=== PATIENT | male | born 1955 | race Caucasian/White ===

== ENCOUNTER 2017-08-28 18:39 | Inpatient (IN) | payer OTHER ==
[2017-08-28] MEDS ORDERED: NS 0.9% 1000 ML* 1,000 ML IV ONE (20:29)
[2017-08-28] MEDS ORDERED: Albuterol/Ipratropium NEB.SOL* Albuterol 2.5 MG/Ipratropium 0.5 MG 3 ML INH ONE (20:42)
[2017-08-28 21:02] LABS: Hematocrit 40 % (42-52); Hemoglobin 13.2 g/dl (14.0-18.0); Mean Corpuscular HGB Conc 33 g/dl (31-36); Mean Corpuscular Hemoglobin 30 pg (27-31); Mean Corpuscular Volume 90 fL (80-94); Mean Platelet Volume 7.7 um3 (7.4-10.4); Platelet Count 205 10^3/ul (150-450); Red Blood Count 4.43 10^6/ul (4.0-5.4); Red Cell Distribution Width 18 % (10.5-15); White Blood Count 10.3 10^3/ul (3.5-10.8)
[2017-08-28 21:11] LABS: INR 0.89 (0.77-1.02)
[2017-08-28 21:19] LABS: EGFR Non-African American 13.3 (>60)
[2017-08-28 21:26] LABS: ABS Basophils 0.1 10^3/ul (0-0.2); ABS Eosinophils 0.2 10^3/ul (0-0.6); ABS Lymphocytes 1.7 10^3/ul (1.0-4.8); ABS Monocytes 2.6 10^3/ul (0-0.8); ABS Neutrophils 5.7 10^3/ul (1.5-7.7); ABS Nucleated RBC 0 10^3/ul; Eosinophil % 1.5 % (0-6); Lymphocyte % 16.7 % (25-47); Nucleated Red Blood Cells % 0.1
--- NOTE | 2017-08-28 21:32 | RAD ---
Indication: Fever, generalized weakness. Comparison: No relevant prior exams available on the [facility] [place] PACS for comparison. Technique: Semiupright AP and lateral chest radiographs. Report: Large body habitus limits image quality. No pulmonary infiltrate, focal pulmonary lesion, pleural effusion, or pneumothorax evident. Upper normal heart size. Unremarkable central pulmonary vasculature and mediastinal contours. Negative for free air beneath the diaphragm. Anterior cervical fusion hardware. IMPRESSION: No evidence for pneumonia. No evidence for acute intrathoracic disease.
[2017-08-28] MEDS ORDERED: cefTRIAXone(*) 1 GM in NS 0.9% 50 ML* 50 ML IVPB ONE (22:16)
[2017-08-28] MEDS ORDERED: HYDROmorphone INJ* 2 MG/ML CARPUJECT SYRINGE IV SLOW PU ONE (22:16)
[2017-08-28] MEDS ORDERED: Acetaminophen TAB* 325 MG PO PRN (23:14)
[2017-08-28] MEDS ORDERED: methylPREDNISolone 125 MG* 2 ML VIAL IV ONE (23:14)
[2017-08-28] MEDS ORDERED: Dextrose 50% Syringe 50 ML* 25 GM/50 ML SYRINGE IV PUSH PRN (23:14)
[2017-08-29] MEDS ORDERED: Azithromycin IV* 500 MG ADVAN VIAL/BAG IVPB ONE (00:05)
[2017-08-29] MEDS: Azithromycin IV(*) 500 MG in NS 0.9% 250 ML* 250 ML IVPB SCH (00:18)
[2017-08-29] MEDS: Albuterol 2.5 MG/3 ML NEB.SOL* (0.083%) INH PRN (00:18)
[2017-08-29] MEDS: NS 0.9% 1000 ML* 1,000 ML IV SCH ×2 (01:11→11:26)
[2017-08-29] MEDS: Morphine VIAL* 4 MG/ML VIAL (1 ml vial) IV PRN ×2 (01:31→20:04)
[2017-08-29 01:56] LABS: Uric Acid 11.1 mg/dL (4.4-7.6)
[2017-08-29] MEDS ORDERED: NS 0.9% 500 ML* 500 ML IV ONE (01:56)
[2017-08-29] MEDS: Albuterol/Ipratropium NEB.SOL* Albuterol 2.5 MG/Ipratropium 0.5 MG 3 ML INH SCH ×6 (03:27→23:31)
--- NOTE | 2017-08-29 04:42 | HP ---
CC: Dr. Hicks; Dr. Antoine; Dr. Gupta * HISTORY AND PHYSICAL: DATE OF ADMISSION: 08/28/17 PRIMARY CARE PROVIDER: Dr. Hicks from [place]. ATTENDING PHYSICIAN WHILE IN THE HOSPITAL: Jolene Hardwick MD* (report being dictated by Greg Ojeda NP) CONSULTING NEUROLOGIST: Dr. Gupta. CONSULTING MEMORIAL DESIGNER: Dr. Antoine. CHIEF COMPLAINT: 1. Generalized pain. 2. Weakness to the lower extremities. HISTORY OF PRESENT ILLNESS: Mr. Lux is a 61-year-old male patient with multiple medical problems. He has a history of diabetes, history of hypertension, hyperlipidemia, hypothyroidism, COPD, history of giant cell arteritis, history of frontal lobe dementia, history of cervical degenerative joint disease, MAGNO, he has GERD, neuropathy, fibromyalgia, PVD, and history of CHF. He is coming into the ED today. He has had several recurrent episodes of having discomfort dating for almost a year now where they get worse and better having pain in the shoulders in the lower extremities. He is just aching all over, he becomes flushed. He has had recurrent episodes. He has been seen mostly at the [facility]. He was actually just at the [facility] and released on 08/26/17. He was there for a total of 3 days. He since being discharged though he has noted that the pain was getting worse. He has just aching all over particularly both his elbows, both his lower extremities. He has noted he was having swelling all over. He was noted to have swelling previously over at the [facility] when he was there from 08/24/17 to 08/26/17. They actually diuresed him aggressively. They sent him out on Bumex 2 mg b.i.d. He states that despite the increased diuretics, the swelling was not getting any better. He is having worsening pain. He states that he has not had any fevers with the exception of here he has been having a cough now, he is noted to be wheezing. He denied any abdominal discomfort and no nausea, vomiting , diarrhea, or chest pain. He denies any orthopnea. The family was concerned because of the pain was unbearable, again particularly all over. He does also admit to the pain worse first thing in the morning. He says first in the morning, he does feel kind of rigid. At times, he describes his gait was a shuffling gait. He has also been having tremors as well. He says that no one particularly joint hurts him. He says all of his joints are hurting right now. He feels stiff. He came into the ED today. It was ultimately noted that he had acute renal failure. Because of this worsening discomfort, pain of unclear etiology, we were asked to evaluate in for admission. PAST MEDICAL HISTORY: Significant for: 1. Diabetes. 2. Hypertension. 3. Hyperlipidemia. 4. Hypothyroidism. 5. COPD. 6. Giant cell arteritis. 7. Frontal lobe dementia. 8. Cervical degenerative disk disease. 9. MAGNO. 10. GERD. 11. Neuropathy. 12. Fibromyalgia. 13. PVD. 14. CHF. PAST SURGICAL HISTORY: 1. He has had cervical and lumbar spinal fusions. 2. He has had right lower extremity stent. 3. Appendectomy. 4. Carpal tunnel. 5. Eustachian tubes. 6. Cholecystectomy. HOME MEDICATIONS: According to the list that he provided include: 1. Insulin regular 2 units subcu a.c. 2. Lantus 20 units subcu at bedtime. 3. Depakote 500 mg p.o. at bedtime. 4. Actemra 162 mg subcu every other week. 5. He is also on melatonin 3 mg at bedtime. 6. Magnesium oxide 400 mg p.o. b.i.d. 7. Seroquel 25 mg at bedtime. 8. Lopressor 25 mg p.o. b.i.d. 9. Aspirin 81 mg a day. 10. Ventolin 2 puffs inhaled every 6 hours as needed. 11. Potassium 30 mEq p.o. b.i.d. 12. Nitro 0.4 mg sublingual q.5 minutes p.r.n. chest pain as needed. 13. Remeron 7.5 mg p.o. at bedtime. 14. Synthroid 25 mcg p.o. daily. 15. Imdur 60 mg p.o. a day. 16. Gabapentin 300 mg p.o. t.i.d. 17. Cardizem CD 240 mg p.o. daily. 18. Lisinopril 20 mg daily. 19. Voltaren gel 1 application topically 4 times a day. 20. Bumex 2 mg p.o. b.i.d. 21. Tylenol 650 mg every 6 hours as needed. ALLERGIES TO MEDICATIONS: Include PENICILLIN. FAMILY HISTORY: His mother had a history of cancer. Father had a history of [place] , but he did have a brother with Leesa Gehrig's disease. SOCIAL HISTORY: He is still smoking half a pack a day. He does not drink alcohol. Surrogate decision maker is his . REVIEW OF SYSTEMS: There is no documented fever here. He denied any significant weight change. There is no double vision. He denies having any ear discharge. There is no rhinorrhea. No sore throat. No thyroid enlargement. He does admit to having the cough. He denies having any shortness of breath. He denied any abdominal pain. There was no nausea, no vomiting. There is no dysuria, no frequency. There was no seizure, no loss of consciousness. No pruritus and no skin ulcerations. Review of 14 systems completed, all others negative. PHYSICAL EXAMINATION GENERAL: At this time, Mr. Lux is a 61-year-old male patient. He is chronically ill appearing. He is sitting in the ED stretcher. He appears to be in mild amount of respiratory distress. VITAL SIGNS: Blood pressure 133/91 with a pulse of 97, respirations of 16, his O2 sat 95%, it was on 2 L. When he came in, he was hypoxic at 89%, it dip down to 77% when he took his oxygen off. HEENT: Head is atraumatic, normocephalic. Eyes: EOMs are intact. Sclerae are anicteric and not pale. Throat: Oral mucosa appears to be moist. No oropharyngeal erythema. NECK: Supple. LUNGS: He had wheezing bilaterally throughout. He had equal diaphragmatic expansion. HEART: Sounds S1, S2. Regular rate and rhythm. No murmurs, rubs, or gallops. ABDOMEN: Soft, flat, it was distended. Bowel sounds were present. EXTREMITIES: Pulses were 2+ throughout. He can move his extremities, but any type of movement causes significant amount of pain, which limited his range of motion. He does have +2 pitting edema on the lower extremities in the pedal area. NEUROLOGICAL: He is awake, he is alert, he is oriented to place and self, confused at times. Supervisor Phosphoric Acid were equal. Tongue is midline. He had no gross obvious focal deficits. SKIN: Intact. He did appear to be flushed. DIAGNOSTIC STUDIES/LAB DATA: His labs today revealing a WBC of 10.3, RBC of 4.43, hemoglobin of 13.2, hematocrit of 40, and the platelet count of 205. He had an INR of 0.89, PTT at 27.5. His sodium was 140, potassium of 4.6, chloride of 99, bicarb 30, BUN was 22, his creatinine was 4.56, previous creatinine was 1.4 according to the discharge paperwork. Glucose 99, lactate 1.2, calcium 9.1, total bili 0.2, AST 36, ALT 40, CK is pending. Troponin 0.00. CRP was 8.75, BNP is 31, albumin of 4.1. Valproic acid was negative. He did have a chest x-ray obtained today, which showed no evidence of pneumonia , no evidence for acute intrathoracic disease. He did have an EKG obtained today, no previous for comparison unfortunately, but it does show a normal sinus rhythm with no ST elevations or T-wave inversions. He did have flattened T-waves in lead III and aVF. Old medical records were reviewed. ASSESSMENT AND PLAN: Mr. Lux is a 61-year-old male patient with a complex medical history coming into the ER today with complaint of aching all over, not feeling well, low grade fever noted. In addition to this, found to be in acute renal failure. He will be admitted under inpatient status for: 1. Chronic obstructive pulmonary disease exacerbation. I am concerned he does have a little bit of work of breathing when I examined him. I had my attending examine him and we felt that he would benefit from high flow O2, so I in place him in ICU, on Vapotherm with aggressive steroid therapy, nebs, Dulera, and antibiotics. I am going to put him on azithromycin and Rocephin for now. Should he spike fever or decompensate further, we could consider giving him vanco and Zosyn. There is no evidence of pneumonia on x-ray. It does appear to be exacerbation of chronic obstructive pulmonary disease, so I do not think he needs the broad-spectrum antibiotics at this point. 2. Arthralgias, again etiology of this is unclear. He had a CT imaging of the cervical spine just done at the [facility]. He also had MRI 6 months ago of the thoracic, lumbar, and cervical spine. The CT spine had no acute pathology. He did have arthritis noted. I will refer you to the report in the chart for the details. He also had a CTA of the head and neck due to the bilateral lower extremity weakness and Neurology evaluated. I do not have the Neurology consult. We will try to get this when he was just at the [facility] a few days ago. I am concerned that he might have connective tissue disorder, possible autoimmune disorder, but it is unclear. I do think we need to get in touch with Rheumatology and we will touch base them tomorrow for further workup. I did send off the ESR. I also sent off an AMINATA double stranded. AMINATA also sent off for rheumatoid factor for the time being and uric acid level as well. We also did check a lactic acid. We will continue him on steroids, again it is unclear etiology. 3. Anasarca, again may have been contributing autoimmune disorder causing this or also possibly nephrotic syndrome. I am waiting on a urine to help us with this. I am not going to diurese him given the acute renal failure. 4. Acute renal failure, again etiology is unclear, but certainly he was on lisinopril. He was on Bumex. He was taking Voltaren gel and also could be other syndromes going on, we bladder scanned him, he was 177, he did urinate this morning and I am going to go ahead and again get a FENa, check a urine protein, and check his mag and phos and we have a call placed out to Nephrology. He does need emergent dialysis at this point, but I am hopeful with stopping the offending agent, hydration, creatinine does improve, but again we will need Nephrology involved. 5. Diabetes, I have put him on a lispro sliding scale. 6. Hypertension, continue his meds as prescribed. I am switching his Cardizem to immediate release. 7. Abdominal distention, again he is not really tender in his abdomen at all, but I did get a CT abdomen just to make sure there was not any obstructive uropathy at this point and we will continue to follow this. 8. Hyperlipidemia, the statin was held recently due to the arthralgias. 9. Fibromyalgia, we will continue meds as prescribed. 10. Dementia, continue supportive care. 11. Tremors, again I am concerned with his history, rigidity, early onset dementia, he may have possibly Parkinson. I did place a consult to Neurology. 12. Degenerative disk disease, continue with meds as prescribed. 13. Obstructive sleep apnea, did order a CPAP. 14. History of giant cell arteritis. I checked an ESR, CRP, his CRP is 8, ESR is pending. I am trying to get the biopsy reports from his primary, that biopsy was done about a year ago. I will put him on high dose steroids for the chronic obstructive pulmonary disease exacerbation, we should treat this in the setting of a possible infection given his fever. I am holding off on his Actemra. 15. Gastroesophageal reflux disease. Continue meds as prescribed. 16. Neuropathy. Continue his current medical regimen, he is on gabapentin. 17. History of peripheral vascular disease, he is on aspirin, we will continue this for now. 18. History of congestive heart failure, I do not believe he is in failure now , his BNP is only 31. 19. DVT prophylaxis. He will be placed on heparin subcu as he is high risk. 20. Code status: He wishes to be a full code. 21. Fluid, electrolytes, nutrition. He can have a consistent carb diet. TIME SPENT: Time spent on the admission was 70 minutes; greater than half the time was spent [id number] with the patient obtaining my history and physical, other half the time was spent going over the plan of care with the patient and implementing plan of care. I did discuss the plan of care with my attending, Dr. Hardwick. I also had Dr. Hardwick evaluate the patient as well given his complexity. She was in agreement with the plan. We will continue to follow up him closely. GREG OJEDA, ROEL [id number]/CPS #: [id number] PHONG
--- NOTE | 2017-08-29 04:45 | ED ---
Justin Hill Jennifer, scribed for Louie Cortez MD on 08/28/17 at 2038 . Complex/Multi-Sys Presentation - HPI Summary HPI Summary: The patient is a 61 year old male with history of Lewy body dementia, CHF, DM, arteritis, Cushings, and fibromyalgia who presents with constant yet increasing confusion and pain since two days ago. Patients states the patient was taken to the [facility] in [place] four days ago, but they stated they have nothing more they can do for him. states patient has had trouble walking, shoulder pain, leg pain, and tremors in hands and legs, which have all been increasing in the past two days. The patient additionally presents with fever in the ED. LEVEL 5 CAVEAT: HPI LIMITED DUE TO DEMENTIA - History Of Current Complaint Chief Complaint: EDGeneral Time Seen by Provider: 08/28/17 20:27 Hx Obtained From: Family/Nuclear Waste Management Engineer - Hx From Patient Unobtainable Due To: Dementia Onset/Duration: Lasting Days - four days, Still Present, Worse Since - two days ago Timing: Constant Severity Currently: Moderate Severity Initially: Moderate Location: Pain At: - Diffuse Associated Signs And Symptoms: Positive: Other - increased pain and confusion, trouble walking, fever, shoulder pain, leg pain, tremors in hands and legs - Allergies/Home Medications Allergies/Adverse Reactions: Allergies Allergy/AdvReac Type Severity Reaction Status Date / Time Penicillins Allergy Hives Verified 08/28/17 18:41 Home Medications: Home Medications Acetaminophen TAB* [Tylenol TAB*] 650 mg PO Q6H PRN 08/28/17 [History Confirmed 08/28/17] Albuterol HFA INHALER* [Ventolin HFA Inhaler*] 2 puff INH Q6H PRN 08/28/17 [ History Confirmed 08/28/17] Aspirin 81 mg CHEW TAB* [Aspirin Low Dose TAB*] 81 mg PO DAILY 08/28/17 [ History Confirmed 08/28/17] Bumetanide TAB* [Bumex 2 MG TAB*] 2 mg PO BID 08/28/17 [History Confirmed ] Diclofenac 1% GEL (NF) [Voltaren 1% GEL (NF)] 1 applic TOPICAL QID 08/28/17 [ History Confirmed 08/28/17] Diltiazem CD CAP* [Cardizem CD CAP*] 240 mg PO DAILY 08/28/17 [History Confirmed 08/28/17] Divalproex ER TAB(*) [Depakote ER TAB(*)] 500 mg PO BEDTIME 08/28/17 [History Confirmed 08/28/17] Gabapentin CAP(*) [Neurontin 300 CAP(*)] 300 mg PO TID 08/28/17 [History Confirmed 08/28/17] Insulin GLARGINE(*) [Lantus(*)] 20 units SUBCUT BEDTIME 08/28/17 [History Confirmed 08/28/17] Insulin REGULAR(*) 2 units SUBCUT AC 08/28/17 [History Confirmed 08/28/17] Isosorbide Mononitrate ER TAB* [Imdur ER TAB*] 60 mg PO DAILY 08/28/17 [History Confirmed 08/28/17] Levothyroxine TAB* [Synthroid TAB*] 25 mcg PO 0800 08/28/17 [History Confirmed 08/28/17] Lisinopril TAB* [Prinivil TAB*] 20 mg PO DAILY 08/28/17 [History Confirmed 08/28] Magnesium Oxide [Kp Mag-Oxide Magnesium] 400 mg PO BID 08/28/17 [History Confirmed 08/28/17] Melatonin [Melatin] 3 mg PO BEDTIME 08/28/17 [History Confirmed 08/28/17] Metoprolol Tartrate TAB* [Lopressor TAB*] 25 mg PO BID 08/28/17 [History Confirmed 08/28/17] Mirtazapine TAB* [Remeron TAB*] 7.5 mg PO BEDTIME 08/28/17 [History Confirmed ] Nitroglycerin TAB 0.4 MG* 0.4 mg SL . NEEDED PRN 08/28/17 [History Confirmed 08/28/17] Potassium Chlor TAB* [Klor Con ER TAB*] 30 meq PO BID 08/28/17 [History Confirmed 08/28/17] QUEtiapine TAB* [Seroquel 25 MG TAB*] 25 mg PO BEDTIME 08/28/17 [History Confirmed 08/28/17] Tocilizumab [Actemra] 162 mg SQ SEE INSTRUCTIONS 08/28/17 [History Confirmed ] PMH/Surg Hx/FS Hx/Imm Hx Endocrine/Hematology History: Reports: Hx Diabetes, Other Endocrine/ Hematological Disorders - Hx arteritis, Hx Lala's Cardiovascular History: Reports: Hx Congestive Heart Failure Respiratory History: Reports: Hx Chronic Obstructive Pulmonary Disease (COPD) Musculoskeletal History: Reports: Hx Fibromyalgia EENT History: Reports: Hx Hearing Aid - Left Neurological History: Reports: Other Neuro Impairments/Disorders - Oscar body dementia Infectious Disease History: No Infectious Disease History: Denies: Traveled Outside the [place] in Last 30 Days - Family History Known Family History: Positive: Unknown - LEVEL 5 CAVEAT: FHX LIMITED DUE TO DEMENTIA - Social History Alcohol Use: None Substance Use Type: Reports: None Smoking Status (MU): Current Every Day Smoker Review of Systems Positive: Fever Musculoskeletal: Other - Pain everywhere Positive: Myalgia - shoulder pain, leg pain Neurological: Other - Confusion, tremors in hands and legs, trouble walking All Other Systems Reviewed And Are Negative: Yes Physical Exam - Summary Physical Exam Summary: Appearance: Well appearing, no pain distress, flushed face Skin: warm to touch, dry, reflects adequate perfusion Head/face: normal Eyes: EOMI, HOMERO ENT: normal, cochlear implant on left. No discernible JVD. Moist mucous membranes. Neck: supple, non-tender Respiratory: Audibly noisy breathing, diffuse wheezes, no rales or rhonchi Cardiovascular: RRR, pulses symmetrical Abdomen: non-tender, soft, midline surgical scar Bowel Sounds: present Musculoskeletal: pitting edema to mid-thigh bilaterally. Swelling in skin, genitals, lower abdominal wall, neck, and upper arms. strength/ROM intact Neuro: normal, sensory motor intact, A&Ox3 Triage Information Reviewed: Yes Vital Signs On Initial Exam: Initial Vitals Temp Pulse Resp BP Pulse Ox 100.5 F 63 20 124/57 92 08/28/17 18:41 08/28/17 18:41 08/28/17 18:41 08/28/17 18:41 08/28/17 18:41 Vital Signs Reviewed: Yes Diagnostics - Vital Signs Vital Signs Temp Pulse Resp BP Pulse Ox 08/28/17 19:27 68 123/67 94 08/28/17 19:23 70 89 08/28/17 18:41 100.5 F 63 20 124/57 92 - Laboratory Lab Results: Lab Results 08/28/17 08/28/1708/28/18 Range/Units 20:56 20:56 20:56 WBC 10.3 (3.5-10.8) 10^3/ul RBC 4.43 (4.0-5.4) 10^6/ul Hgb 13.2 L (14.0-18.0) g/dl Hct 40 L (42-52) % MCV 90 (80-94) fL MCH 30 (27-31) pg MCHC 33 (31-36) g/dl RDW 18 H (10.5-15) % Plt Count 205 (150-450) 10^3/ul MPV 7.7 (7.4-10.4) um3 Neut % (Auto) 55.6 (38-83) % Lymph % (Auto) 16.7 L (25-47) % Crawford % (Auto) 25.2 H (0-7) % Eos % (Auto) 1.5 (0-6) % Baso % (Auto) 1.0 (0-2) % Absolute Neuts (auto) 5.7 (1.5-7.7) 10^3/ul Absolute Lymphs (auto) 1.7 (1.0-4.8) 10^3/ul Absolute Monos (auto) 2.6 H (0-0.8) 10^3/ul Absolute Eos (auto) 0.2 (0-0.6) 10^3/ul Absolute Basos (auto) 0.1 (0-0.2) 10^3/ul Absolute Nucleated RBC 0 10^3/ul Nucleated RBC % 0.1 ESR 15 (0-20) mm/Hr INR (Anticoag Therapy) 0.89 (0.77-1.02) APTT 27.5 (26.0-36.3) seconds Sodium 140 (139-145) mmol/L Potassium 4.6 (3.5-5.0) mmol/L Chloride 99 L (101-111) mmol/L Carbon Dioxide 30 (22-32) mmol/L Anion Gap 11 (2-11) mmol/L BUN 22 (6-24) mg/dL Creatinine 4.56 H (0.67-1.17) mg/dL Est GFR ( Amer) 17.1 (>60) Est GFR (Non-Af Amer) 13.3 (>60) BUN/Creatinine Ratio 4.8 L (8-20) Glucose 99 (70-100) mg/dL Lactic Acid (0.5-2.0) mmol/L Calcium 9.1 (8.6-10.3) mg/dL Total Bilirubin 0.20 (0.2-1.0) mg/dL AST 36 (13-39) U/L ALT 40 (7-52) U/L Alkaline Phosphatase 62 (34-104) U/L Total Creatine Kinase 49 (10-223) U/L Troponin I 0.00 (<0.04) ng/mL C-Reactive Protein 8.75 H (< 5.00) mg/L B-Natriuretic Peptide ( - 100) pg/mL Total Protein 6.4 (6.4-8.9) g/dL Albumin 4.1 (3.2-5.2) g/dL Globulin 2.3 (2-4) g/dL Albumin/Globulin Ratio 1.8 (1-3) TSH 4.95 (0.34-5.60) mcIU/mL Cortisol 3.58 mcg/dL Valproic Acid 48.0 L (50-100) mcg/mL 08/28/17 08/28/17 Range/Units 20:56 20:56 WBC (3.5-10.8) 10^3/ul RBC (4.0-5.4) 10^6/ul Hgb (14.0-18.0) g/dl Hct (42-52) % MCV (80-94) fL MCH (27-31) pg MCHC (31-36) g/dl RDW (10.5-15) % Plt Count (150-450) 10^3/ul MPV (7.4-10.4) um3 Neut % (Auto) (38-83) % Lymph % (Auto) (25-47) % Crawford % (Auto) (0-7) % Eos % (Auto) (0-6) % Baso % (Auto) (0-2) % Absolute Neuts (auto) (1.5-7.7) 10^3/ul Absolute Lymphs (auto) (1.0-4.8) 10^3/ul Absolute Monos (auto) (0-0.8) 10^3/ul Absolute Eos (auto) (0-0.6) 10^3/ul Absolute Basos (auto) (0-0.2) 10^3/ul Absolute Nucleated RBC 10^3/ul Nucleated RBC % ESR (0-20) mm/Hr INR (Anticoag Therapy) (0.77-1.02) APTT (26.0-36.3) seconds Sodium (139-145) mmol/L Potassium (3.5-5.0) mmol/L Chloride (101-111) mmol/L Carbon Dioxide (22-32) mmol/L Anion Gap (2-11) mmol/L BUN (6-24) mg/dL Creatinine (0.67-1.17) mg/dL Est GFR ( Amer) (>60) Est GFR (Non-Af Amer) (>60) BUN/Creatinine Ratio (8-20) Glucose (70-100) mg/dL Lactic Acid 1.2 (0.5-2.0) mmol/L Calcium (8.6-10.3) mg/dL Total Bilirubin (0.2-1.0) mg/dL AST (13-39) U/L ALT (7-52) U/L Alkaline Phosphatase (34-104) U/L Total Creatine Kinase (10-223) U/L Troponin I (<0.04) ng/mL C-Reactive Protein (< 5.00) mg/L B-Natriuretic Peptide 31 ( - 100) pg/mL Total Protein (6.4-8.9) g/dL Albumin (3.2-5.2) g/dL Globulin (2-4) g/dL Albumin/Globulin Ratio (1-3) TSH (0.34-5.60) mcIU/mL Cortisol mcg/dL Valproic Acid (50-100) mcg/mL Result Diagrams: 08/28/17 20:56 08/28/17 20:56 Lab Statement: Any lab studies that have been ordered have been reviewed, and results considered in the medical decision making process. - Radiology CXR Xray Interpretation: No Acute Changes - No evidence for pneumonia. No evidence for acute intrathoracic disease. Dr. Cortez has reviewed this report. Radiology Interpretation Completed By: Radiologist - CT CT Abd/Pel CT Interpretation: Positive (See Comments) - Left renal atrophy and suspected right renal dysfunctionw ihtout hydronephrosis. Tiny umbilical hernia into which bowel minimally portrudes. Suspected retained contrast in the bladder also suggest renal dysfunction. Dr. Cortez has reviewed this report. CT Interpretation Completed By: Radiologist - EKG 2036 Cardiac Rate: NL EKG Rhythm: Sinus Rhythm - [address] Segment: Normal EKG Interpretation: Normal axis, normal intervals, low voltage in inferior leads Re-Evaluation - Re-Evaluation First Eval Change: Improved - Improved on oxygen but continues to have diffuse pain Complex Multi-Symp Course/Dx Course Of Treatment: She was a multitude of issues to include flushing, anasarca , widespread pain and other things. His records are obtained from the [facility] in [place]. It was found that his baseline creatinine is 1.4. Today he is 4.5, indicating acute renal failure likely from diuresis. He is pending a urinalysis which may indicate nephrotic syndrome. He also has evidence for COPD with diffuse wheezing. There is no evidence for congestive heart failure. He was hydrated here and will require admission and treatment for all of the above. It's possible he has some autoimmune disease contributing to the all the above presentations including his dementia. Fever at present has a source that is not yet discovered. - Diagnoses Differential Diagnoses/HQI/PQRI: Metabolic Abnormality, Sepsis, Urinary Tract Infection, Other - Nephrotic syndrome, autoimmune disorder, COPD exacerbation, pneumonia, bacteremia Provider Diagnoses: Fever, COPD (chronic obstructive pulmonary disease), Hypoxia, Acute renal failure - Physician Notifications Discussed Care Of Patient With: Gerg Ojeda Time Discussed With Above Provider: 22:30 Instructed by Provider To: Admit As Inpatient - Critical Care Time Critical Care Time: 30-74 min - Critical care time is exclusive of separately billable procedures Discharge - Sign-Out/Discharge Documenting (check all that apply): Discharge/Admit/Transfer - Discharge Plan Condition: Fair Disposition: ADMITTED TO [facility] - Billing Disposition and Condition Condition: FAIR Disposition: [facility] [place] The documentation as recorded by the Justin antonio Jennifer accurately reflects the service I personally performed and the decisions made by , Louie Cortez MD.
[2017-08-29 06:04] LABS: ABS Basophils 0.1 10^3/ul (0-0.2); ABS Eosinophils 0 10^3/ul (0-0.6); ABS Lymphocytes 0.5 10^3/ul (1.0-4.8); ABS Monocytes 0.3 10^3/ul (0-0.8); ABS Neutrophils 10.6 10^3/ul (1.5-7.7); ABS Nucleated RBC 0 10^3/ul; Eosinophil % 0.2 % (0-6); Hematocrit 37 % (42-52); Hemoglobin 11.9 g/dl (14.0-18.0); Lymphocyte % 4.4 % (25-47); Mean Corpuscular HGB Conc 33 g/dl (31-36); Mean Corpuscular Hemoglobin 30 pg (27-31); Mean Corpuscular Volume 91 fL (80-94); Mean Platelet Volume 8.1 um3 (7.4-10.4); Nucleated Red Blood Cells % 0.1; Platelet Count 189 10^3/ul (150-450); Red Blood Count 4.04 10^6/ul (4.0-5.4); Red Cell Distribution Width 18 % (10.5-15); White Blood Count 11.5 10^3/ul (3.5-10.8)
[2017-08-29] MEDS: Heparin VIAL(*) 5000 UNITS/ML VIAL (FIVE THOUSAND) SUBCUT SCH ×3 (06:18→22:04)
[2017-08-29] MEDS: Diltiazem TAB* 60 MG PO SCH ×3 (06:18→18:30)
[2017-08-29] MEDS ORDERED: NS 0.9% 1000 ML* 1,000 ML IV ONE (06:23)
[2017-08-29 06:26] LABS: EGFR Non-African American 13.2 (>60)
[2017-08-29 06:27] LABS: INR 0.93 (0.77-1.02)
[2017-08-29 06:35] LABS: Urine Appearance Cloudy; Urine Blood Negative (Negative); Urine Color Yellow; Urine Ketones Trace (Negative); Urine Protein 1+(30 mg/dL) (Negative); Urine Red Blood Cell Absent (Absent); Urine Specific Gravity 1.021 (1.010-1.030); Urine Urobilinogen Negative (Negative); Urine White Blood Cell Absent (Absent)
--- NOTE | 2017-08-29 07:55 | RAD ---
INDICATION: Abdominal distention COMPARISON: None TECHNIQUE: Noncontrast axial source images were obtained from the hemidiaphragms to the symphysis pubis. This examination was ordered using a renal stone protocol which is performed without oral or intravenous contrast and therefore has inherent limitations when used to evaluate other intra-abdominal or intrapelvic pathology. Consider conventional contrast enhanced imaging if clinically indicated. Lung bases: The lung bases are clear. Liver: The liver is mildly enlarged. There is a subcentimeter hypodensity in the left hepatic lobe near the dome which on a statistical basis is likely a cyst or hemangioma. Noncontrast imaging shows no evidence of a hepatic mass or ductal dilatation. Gallbladder: Cholecystectomy. Spleen: The spleen is normal in size. The noncontrast CT appearance is normal. Pancreas: Noncontrast imaging shows no pancreatic mass or ductal dilitation. Adrenal glands: No masses are identified. Kidneys/Bladder: There is no evidence of nephrolithiasis or CT evidence of hydronephrosis. Noncontrast imaging shows no evidence of a renal mass. The left kidney is atrophic. There is a relative increase in density in the right kidney which likely reflects underlying renal parenchymal disease. The bladder is unremarkable.. Adenopathy: There is no evidence of intraperitoneal or retroperitoneal adenopathy. Evaluation is limited without oral contrast. Fluid collections: There are no free or localized fluid collections. Vessels: There are atherosclerotic changes of the aorta and iliac vessels. There is no focal aneurysm. There is believed to be left iliac stenting. The IVC appears normal Pelvic organs: The prostate and seminal vesicles appear normal GI tract: Evaluation of the bowel is limited without oral contrast. The stomach, small bowel, and lower GI tract appear grossly normal. There are no obstructive findings. Soft tissues: No soft tissue abnormalities of the extraperitoneal abdomen or pelvis are identified. Osseous structures: There are no acute osseous findings. There is lumbar fusion at L4-L5 IMPRESSION: NO ACUTE CT FINDINGS. SUGGEST RENAL PARENCHYMAL DISEASE ON THE BASIS OF AN ATROPHIED LEFT KIDNEY A RADIODENSE RIGHT KIDNEY.
[2017-08-29] MEDS: Mometasone/Formoter 200/5 MDI INH SCH ×2 (08:26→19:54)
[2017-08-29] MEDS: methylPREDNISolone 125 MG* 2 ML VIAL IV SCH ×2 (09:04→17:19)
[2017-08-29] MEDS: Insulin LISPRO* 1 UNITS UNIT SUBCUT SCH ×3 (09:08→17:20)
[2017-08-29] MEDS: Gabapentin CAP(*) 400 MG PO SCH (09:10)
[2017-08-29] MEDS: Levothyroxine TAB* 25 MCG TAB PO SCH (09:10)
[2017-08-29] MEDS: Aspirin 81 mg CHEW TAB* 81 MG TAB.CHEW PO SCH (09:10)
[2017-08-29] MEDS: Metoprolol Tartrate TAB* 25 MG PO SCH ×2 (09:10→22:04)
[2017-08-29] MEDS: Isosorbide Mononitrate ER TAB* 60 MG PO SCH (09:10)
--- NOTE | 2017-08-29 16:08 | ECHO ---
Patient: DARIELA HURTADO [facility] Rec#: [id number] : 1955 Date: 08/29/2017 Age: 61y Height: 165.1 cm / 65.0 in Weight: 111.58 kg / 245.9 lbs Sex: M BSA: 2.16 Room#: ICU 3 Admit Date#: 08/28/2017 Type: Inpatient Referring: Virgie Live DO Reading: Jonas Garcia MD School Speech Therapist: Eden BadilloRD,RDMS Transthoracic Echocardiogram Indication: CHF BP: 130/80 HR: 68 Rhythm: NSR Findings History: DM, HTN, HLD, PVD, CHF, COPD, smoker, giant cell arteritis, Technical Comments: The study quality is good. Left Ventricle: The left ventricular chamber size is normal. Mild concentric left ventricular hypertrophy is observed. The left ventricle appears hyperdynamic. The estimated ejection fraction is greater than 65%. The assessment of diastolic function is non-diagnostic. Left Atrium: The left atrium is mildly dilated. Right Ventricle: The right ventricular chamber size and systolic function are within normal limits. The right ventricle wall thickness is mildly increased. Right Atrium: The right atrial cavity size is normal. Aortic Valve: The aortic valve is trileaflet. The aortic valve leaflets are mildly thickened. There is moderate thickening of the left coronary cusp. There is no evidence of aortic regurgitation. There is no evidence of aortic stenosis. Mitral Valve: The mitral valve leaflets appear normal. There is a trace of mitral regurgitation. There is no evidence of mitral stenosis. Tricuspid Valve: The tricuspid valve leaflets are normal. There is trace tricuspid regurgitation. Unable to estimate the right ventricular systolic pressure. Pulmonic Valve: The pulmonic valve structure is not well visualized. There is a trace pulmonic regurgitation. Pericardium: There is no significant pericardial effusion. Aorta: The aortic root appears normal. There is no dilatation of the aortic arch. Pulmonary Artery: The main pulmonary artery is not well visualized. Venous: The inferior vena cava is dilated. There is an approximate 50% respiratory change in the inferior vena cava dimension. Conclusions Mild concentric left ventricular hypertrophy is observed. The left ventricle appears hyperdynamic. The estimated ejection fraction is greater than 65%. No significant valvular disease: There is a trace of mitral regurgitation. There is trace tricuspid regurgitation. There is a trace pulmonic regurgitation. No reports of prior studies are offered for comparison. Measurements Name Value Normal Range RVIDd (AP) 2D 2.1 cm (0.9 - 2.6) RVDdMajor (2D) 2.4 cm (2.2 - 4.4) RAd ISD 4CH 4.6 cm (3.4 - 4.9) RA (A4C)W 3 cm (2.9 - 4.6) IVSd (2D) 1.3 cm (0.6 - 1) LVPWd (2D) 1.3 cm (0.6 - 1) LVIDd (2D) 4.9 cm (3.6 - 5.4) LVIDs (2D) 3.9 cm - LV FS (2D) 19 % (25 - 45) Aortic Annulus 2.1 cm (1.4 - 2.6) Ao root diameter (2D) 2.7 cm (2.1 - 3.5) Ascending Ao 3.3 cm (2.1 - 3.4) LA dimension (AP) 2D 4.2 cm (2.3 - 3.8) LAd ISD 4CH 6 cm (2.9 - 5.3) LA ISD 4CH W 4.9 cm (2.5 - 4.5) Name Value Normal Range LA ESV SP 4CH (A/L) 51.67 ml - LA ESV SP 2CH (A/L) 55.75 ml - LA ESV BP (A/L) 56.38 ml - LA ESV BP (A/L) index 26 ml/m2 - LA ESV SP 4CH (MOD) 48.27 ml - LA ESV SP 2CH (MOD) 54.25 ml - Name Value Normal Range MV E-wave Vmax 1.2 m/sec - MV deceleration time 148 msec - MV A-wave Vmax 1 m/sec - MV E:A ratio 1.2 ratio - LV septal e' Vmax 0.05 m/sec - LV lateral e' Vmax 0.07 m/sec - LV E:e' septal ratio 24 ratio - LV E:e' lateral ratio 17 ratio - Name Value Normal Range AV Vmax 2.1 m/sec - AV VTI 38 cm - AV peak gradient 18 mmHg - AV mean gradient 8.5 mmHg - LVOT diameter 2.2 cm - LVOT Vmax 1.3 m/sec - LVOT VTI 24 cm - LVOT peak gradient 7 mmHg - LVOT mean gradient 3.9 mmHg - DOI (VTI) 0.6 ratio - EVETTE (continuity Vmax) 2.4 cm2 - EVETTE (continuity VTI) 2.4 cm2 - Name Value Normal Range MV Vmax 1.4 m/sec - MV VTI 30.8 cm - MV peak gradient 8 mmHg - MV mean gradient 4 mmHg - MV PHT 52 msec - MVA (PHT) 4.2 cm2 - MVA (continuity VTI) 2.8 cm2 - Name Value Normal Range RAP 8 mmHg - IVC diameter 2.4 cm - Name Value Normal Range PV Vmax 1.3 m/sec - PV peak gradient 7 mmHg -
--- NOTE | 2017-08-29 16:26 | PN ---
Subjective Date of Service: 08/29/17 Interval History: Pt states he is feeling a little better today than he did yesterday. He still has pain in his limbs because of the significant edema. He denies any CP. Objective Active Medications: Acetaminophen (Tylenol Tab*) 650 mg PO Q4H PRN PRN Reason: FEVER/PAIN Albuterol (Ventolin 2.5 Mg/3 Ml Neb.Kristen*) 2.5 mg INH Q2H PRN PRN Reason: SOB/WHEEZING Last Admin: 08/29/17 00:18 Dose: 2.5 mg Albuterol/Ipratropium (Duoneb (Albuterol 2.5 Mg/Ipratropium 0.5 Mg)) 1 neb INH [id number] AWAKE [facility] Last Admin: 08/29/17 15:33 Dose: 1 neb Aspirin (Aspirin 81 Mg Chew Tab*) 81 mg PO DAILY [facility] Last Admin: 08/29/17 09:10 Dose: 81 mg Dextrose (D50w Syringe 50 Ml*) 12.5 gm IV PUSH .FOR FS < 60 - SS PRN PRN Reason: FS < 60 Diltiazem HCl (Cardizem Tab*) 60 mg PO Q6HR [facility] Last Admin: 08/29/17 12:10 Dose: 60 mg Gabapentin (Neurontin Cap(*)) 400 mg PO DAILY [facility] Last Admin: 08/29/17 09:10 Dose: 400 mg Heparin Sodium (Porcine) (Heparin Vial(*)) 5,000 units SUBCUT Q8HR [facility] Last Admin: 08/29/17 14:41 Dose: 5,000 units Sodium Chloride (Ns 0.9% 1000 Ml*) 1,000 mls @ 100 mls/hr IV PER RATE [facility] Stop: 08/30/17 09:14 Last Admin: 08/29/17 11:26 Dose: 100 mls/hr Ceftriaxone Sodium 1,000 mg/ (Sodium Chloride) 50 mls @ 200 mls/hr IVPB Q24H [facility] Azithromycin 500 mg/ Sodium (Chloride) 250 mls @ 250 mls/hr IVPB Q24H [facility] Last Admin: 08/29/17 00:18 Dose: 250 mls/hr Insulin Glargine (Lantus(*)) 20 units SUBCUT BEDTIME [facility] Insulin Human Lispro (Humalog*) 0 units SUBCUT AC [facility] PRN Reason: Protocol Last Admin: 08/29/17 12:09 Dose: 9 unit Isosorbide Mononitrate (Imdur Er Tab*) 60 mg PO DAILY [facility] Last Admin: 08/29/17 09:10 Dose: 60 mg Levothyroxine Sodium (Synthroid Tab*) 25 mcg PO 0800 [facility] Last Admin: 08/29/17 09:10 Dose: 25 mcg Melatonin (Melatonin (Nf)) 3 mg PO BEDTIME [facility] Methylprednisolone Sodium Succinate (Solu-Medrol 125mg *) 60 mg IV Q8H [facility] Last Admin: 08/29/17 09:04 Dose: 60 mg Metoprolol Tartrate (Lopressor Tab*) 25 mg PO BID [facility] Last Admin: 08/29/17 09:10 Dose: 25 mg Mirtazapine (Remeron Tab*) 7.5 mg PO BEDTIME [facility] Mometasone Furoate/Formoterol Fumar (Dulera 200/5 Mdi*) 2 puff INH BID [facility] Last Admin: 08/29/17 08:26 Dose: 2 puff Morphine Sulfate (Morphine Vial*) 4 mg IV Q4H PRN PRN Reason: PAIN Last Admin: 08/29/17 01:31 Dose: 4 mg Quetiapine Fumarate (Seroquel Tab*) 25 mg PO BEDTIME [facility] Vital Signs - 8 hr 08/29/17 08/29/17 08/29/17 08:31 09:00 09:07 Temperature 97.7 F 97.7 F Pulse Rate 89 101 105 Respiratory 11 19 14 Rate Blood Pressure 162/90 (mmHg) O2 Sat by Pulse 95 94 96 Oximetry 08/29/17 08/29/17 08/29/17 10:00 10:01 11:00 Temperature 98.2 F 98.2 F Pulse Rate 97 96 95 Respiratory 18 20 16 Rate Blood Pressure 130/80 (mmHg) O2 Sat by Pulse 96 95 96 Oximetry 08/29/17 08/29/17 08/29/17 11:01 11:58 12:00 Temperature 98.1 F Pulse Rate 97 87 87 Respiratory 20 11 13 Rate Blood Pressure 144/77 140/81 (mmHg) O2 Sat by Pulse 95 95 94 Oximetry 08/29/17 08/29/17 08/29/17 13:00 14:00 14:01 Temperature 98.1 F 97.9 F 97.9 F Pulse Rate 88 92 92 Respiratory 14 15 22 Rate Blood Pressure 123/71 158/88 (mmHg) O2 Sat by Pulse 94 95 92 Oximetry 08/29/17 08/29/17 08/29/17 14:07 15:00 15:38 Temperature 98.4 F 97.9 F Pulse Rate 87 86 Respiratory 10 16 Rate Blood Pressure 119/72 (mmHg) O2 Sat by Pulse 93 95 Oximetry Oxygen Devices in Use Now: CPAP Appearance: Middle aged obese male lying in bed, CPAP on, NAD Eyes: No Scleral Icterus Ears/Nose/Mouth/Throat: Mucous Membranes Moist Respiratory: Symmetrical Chest Expansion and Respiratory Effort, Clear to Auscultation - anteriorly and lateral bases Cardiovascular: NL Sounds; No Murmurs; No JVD, RRR, - - marked anasarca Abdominal: NL Sounds; No Tenderness; No Distention Extremities: No Clubbing, Cyanosis Skin: No Nodules or Sclerosis Neurological: Alert and Oriented x 3 Result Diagrams: 08/29/17 05:50 08/29/17 08:58 Additional Lab and Data: Lab Results 08/28/17 08/28/17 08/28/17 Range/Units 20:56 20:56 20:56 WBC 10.3 (3.5-10.8) 10^3/ul RBC 4.43 (4.0-5.4) 10^6/ul Hgb 13.2 L (14.0-18.0) g/dl Hct 40 L (42-52) % MCV 90 (80-94) fL MCH 30 (27-31) pg MCHC 33 (31-36) g/dl RDW 18 H (10.5-15) % Plt Count 205 (150-450) 10^3/ul MPV 7.7 (7.4-10.4) um3 Neut % (Auto) 55.6 (38-83) % Lymph % (Auto) 16.7 L (25-47) % [place] % (Auto) 25.2 H (0-7) % Eos % (Auto) 1.5 (0-6) % Baso % (Auto) 1.0 (0-2) % Absolute Neuts (auto) 5.7 (1.5-7.7) 10^3/ul Absolute Lymphs (auto) 1.7 (1.0-4.8) 10^3/ul Absolute Monos (auto) 2.6 H (0-0.8) 10^3/ul Absolute Eos (auto) 0.2 (0-0.6) 10^3/ul Absolute Basos (auto) 0.1 (0-0.2) 10^3/ul Absolute Nucleated RBC 0 10^3/ul Nucleated RBC % 0.1 ESR 15 (0-20) mm/Hr INR (Anticoag Therapy) 0.89 (0.77-1.02) APTT 27.5 (26.0-36.3) seconds Sodium 140 (139-145) mmol/L Potassium 4.6 (3.5-5.0) mmol/L Chloride 99 L (101-111) mmol/L Carbon Dioxide 30 (22-32) mmol/L Anion Gap 11 (2-11) mmol/L BUN 22 (6-24) mg/dL Creatinine 4.56 H (0.67-1.17) mg/dL Est GFR ( Amer) 17.1 (>60) Est GFR (Non-Af Amer) 13.3 (>60) BUN/Creatinine Ratio 4.8 L (8-20) Glucose 99 (70-100) mg/dL Lactic Acid (0.5-2.0) mmol/L Calcium 9.1 (8.6-10.3) mg/dL Total Bilirubin 0.20 (0.2-1.0) mg/dL AST 36 (13-39) U/L ALT 40 (7-52) U/L Alkaline Phosphatase 62 (34-104) U/L Total Creatine Kinase 49 (10-223) U/L Troponin I 0.00 (<0.04) ng/mL C-Reactive Protein 8.75 H (< 5.00) mg/L B-Natriuretic Peptide ( - 100) pg/mL Total Protein 6.4 (6.4-8.9) g/dL Albumin 4.1 (3.2-5.2) g/dL Globulin 2.3 (2-4) g/dL Albumin/Globulin Ratio 1.8 (1-3) TSH 4.95 (0.34-5.60) mcIU/mL Cortisol 3.58 mcg/dL Valproic Acid 48.0 L (50-100) mcg/mL 08/28/17 08/28/17 Range/Units 20:56 20:56 WBC (3.5-10.8) 10^3/ul RBC (4.0-5.4) 10^6/ul Hgb (14.0-18.0) g/dl Hct (42-52) % MCV (80-94) fL MCH (27-31) pg MCHC (31-36) g/dl RDW (10.5-15) % Plt Count (150-450) 10^3/ul MPV (7.4-10.4) um3 Neut % (Auto) (38-83) % Lymph % (Auto) (25-47) % [place] % (Auto) (0-7) % Eos % (Auto) (0-6) % Baso % (Auto) (0-2) % Absolute Neuts (auto) (1.5-7.7) 10^3/ul Absolute Lymphs (auto) (1.0-4.8) 10^3/ul Absolute Monos (auto) (0-0.8) 10^3/ul Absolute Eos (auto) (0-0.6) 10^3/ul Absolute Basos (auto) (0-0.2) 10^3/ul Absolute Nucleated RBC 10^3/ul Nucleated RBC % ESR (0-20) mm/Hr INR (Anticoag Therapy) (0.77-1.02) APTT (26.0-36.3) seconds Sodium (139-145) mmol/L Potassium (3.5-5.0) mmol/L Chloride (101-111) mmol/L Carbon Dioxide (22-32) mmol/L Anion Gap (2-11) mmol/L BUN (6-24) mg/dL Creatinine (0.67-1.17) mg/dL Est GFR ( Amer) (>60) Est GFR (Non-Af Amer) (>60) BUN/Creatinine Ratio (8-20) Glucose (70-100) mg/dL Lactic Acid 1.2 (0.5-2.0) mmol/L Calcium (8.6-10.3) mg/dL Total Bilirubin (0.2-1.0) mg/dL AST (13-39) U/L ALT (7-52) U/L Alkaline Phosphatase (34-104) U/L Total Creatine Kinase (10-223) U/L Troponin I (<0.04) ng/mL C-Reactive Protein (< 5.00) mg/L B-Natriuretic Peptide 31 ( - 100) pg/mL Total Protein (6.4-8.9) g/dL Albumin (3.2-5.2) g/dL Globulin (2-4) g/dL Albumin/Globulin Ratio (1-3) TSH (0.34-5.60) mcIU/mL Cortisol mcg/dL Valproic Acid (50-100) mcg/mL Microbiology and Other Data: Microbiology 08/29/17 01:01 Nasal Screen MRSA (PCR)([facility]UREN) - Final Nasal Mrsa Not Detected 08/29/17 01:00 Influenza Types A,B Antigen (LAUREN) - Final Nasal Specimen received for Influenza A/B Molecular testing Assess/Plan/Problems-Billing Mr Lux is a 61 yo M who has a h/o HTN, hypothyroidism, type II DM, COPD, diastolic CHF, MAGNO and frontal lobe dementia who presented to the ER with c/o generalized weakness and pain in LE. - Patient Problems (1) Acute renal failure Current Visit: Yes Status: Acute Comment: Pts baseline renal function is unknown. His creatinine is stable today compared to yesterday in the ER. Dr. Antoine saw the patient earlier today and felt that the patient was likely intravascularly dry but total body fluid overloaded. ? CHF (seems unlikely as EF normal) vs cirrhosis vs other. Will continue fluids at current rate and follow up BMP tomorrow. [facility] (2) Acute respiratory failure with hypoxia Current Visit: Yes Status: Acute Code(s): J96.01 - ACUTE RESPIRATORY FAILURE WITH HYPOXIA SNOMED Code(s): 06650802 Comment: Pt has been on vapotherm. Now utilizing CPAP. No evidence of pulmonary edema on CXR and lungs sound clear. Continue to follow clinically and wean O2 as able. Pt will continue on ceftriaxone and azithromycin for now but I do not think he is infected. (3) Anasarca Current Visit: Yes Status: Acute Code(s): R60.1 - GENERALIZED EDEMA SNOMED Code(s): 661312316 Comment: No clear cause at this time. Hold off on diuretics for now. He was reportedly aggressively diuresed while at the [facility]. (4) COPD (chronic obstructive pulmonary disease) Current Visit: Yes Status: Acute Code(s): J44.9 - CHRONIC OBSTRUCTIVE PULMONARY DISEASE, UNSPECIFIED SNOMED Code(s): 90733378 Comment: No signs of exacerbation. Continue prn albuterol. (5) HTN (hypertension) Current Visit: Yes Status: Acute Code(s): I10 - ESSENTIAL (PRIMARY) HYPERTENSION SNOMED Code(s): 39099527 Comment: BP is under good control. Continue current regimen. (6) Hypothyroid Current Visit: Yes Status: Acute Code(s): E03.9 - HYPOTHYROIDISM, UNSPECIFIED SNOMED Code(s): 66664902 Comment: TSH in acceptable range. Continue synthroid at current dose. (7) Type II diabetes mellitus Current Visit: Yes Status: Acute Comment: Sugars are moderately elevated. Continue lantus and lispro. If sugars still elevated tomorrow lantus should be increased. (8) DVT prophylaxis Current Visit: Yes Status: Acute Code(s): DCS2353 - SNOMED Code(s): 647616320 Comment: SQ heparin (9) Full code status Current Visit: Yes Status: Acute Code(s): Z78.9 - OTHER SPECIFIED HEALTH STATUS SNOMED Code(s): 936888709
[2017-08-29] MEDS ORDERED: Divalproex ER TAB(*) 500 MG PO SCH (21:00)
[2017-08-29] MEDS ORDERED: Insulin GLARGINE(*) 1 UNITS UNIT SUBCUT SCH (21:00)
[2017-08-29] MEDS: cefTRIAXone VIAL(*) 1,000 MG in NS 0.9% 50 ML* 50 ML IVPB SCH (22:04)
[2017-08-29] MEDS: Mirtazapine TAB* 15 MG PO SCH (22:05)
[2017-08-29] MEDS: QUEtiapine TAB* 25 MG PO SCH (22:05)
[2017-08-29] MEDS: CMCS:Melatonin (NF) 3 MG TAB PO SCH (22:05)
--- NOTE | 2017-08-29 22:45 | CONS ---
NEPHROLOGY CONSULTATION: DATE OF CONSULT: 08/29/17 HISTORY OF PRESENT ILLNESS: Mr. Lux is a 61-year-old gentleman with a long and complex medical history, who presented because of generalized diffuse pain and weakness and swelling involving his ankles, legs, arms, shoulders, and hands. He has been noticing worsening of his symptoms over approximately the last month. Had an attempt at diuresing, which has not been all that effective. He has been having some episodes of flushing. He has not had dysuria, frequency, or urgency. No foaming urine and no gross hematuria. PAST MEDICAL HISTORY: Significant for hypertension; diabetes mellitus, type 2; hyperlipidemia; hypothyroidism; COPD; giant cell arteritis; frontal lobe dementia; cervical degenerative joint disease; obstructive sleep apnea. His diabetes has been complicated by neuropathy to both legs, but mostly involving the left leg which has been of decades' duration. He has a history of fibromyalgia and he has a history of congestive heart failure. He has a history of peripheral vascular disease. PAST SURGICAL HISTORY: He has had cervical lumbar spinal fusions. He has had a stent to his right leg. He is status post an appendectomy. He has had carpal tunnel surgery. He has had eustachian tubes in both ears. He is status post cholecystectomy. MEDICATIONS: At the time of admission included: 1. Lantus 20 units at bedtime with regular insulin 2 units with meals. 2. Depakote 500 mg at bedtime. 3. Actemra 162 mg subcutaneously every other week. 4. Melatonin 3 mg at bedtime. 5. Magnesium oxide 400 mg b.i.d. 6. Seroquel 25 mg at bedtime. 7. Lopressor 25 mg b.i.d. 8. Aspirin 81 mg daily. 9. Ventolin metered-dose inhaler 2 puffs every 6 hours p.r.n. 10. Potassium 30 mEq b.i.d. 11. Nitroglycerin 0.4 mg sublingually p.r.n. for chest pain. 12. Remeron 7.5 mg at bedtime. 13. Synthroid 25 mcg daily. 14. Imdur 60 mg daily. 12. Gabapentin 300 mg t.i.d. 13. Cardizem CD 240 mg daily. 14. Lisinopril 20 mg daily. 15. Voltaren gel topically four times a day. 16. Bumex 2 mg b.i.d. 17. Tylenol on a p.r.n. basis. ALLERGIES: He is allergic to PENICILLIN. FAMILY HISTORY: Significant in that he had a brother with ALS. SOCIAL HISTORY: He still smokes half a pack of cigarettes per day. REVIEW OF SYSTEMS: Reveals only the previous and present medical illnesses. PHYSICAL EXAM: He is an obese white gentleman, who appears comfortable at the present time. He is afebrile. His blood pressure is 130/80 with a pulse of 96 , which is regular. Respiratory rate is 20. He is normocephalic. Pupils are reactive to light. The extraocular muscles are intact. Mucous membranes are moist. The chest revealed scattered rhonchi. The heart revealed a regular rhythm without murmurs. The abdomen is obese and nontender. There is no organomegaly. Bowel sounds are positive. Bones, joints, extremities: He had 2 + pitting edema to his lower extremities with some trophic changes. In addition , he had some edema to his upper extremities as well. Neurologic: He is awake and alert. He moves all 4 extremities. DIAGNOSTIC STUDIES/LAB DATA: A review of his laboratory studies reveals a white count of 11.5, hemoglobin of 11.9, platelet count of 189,000. Sodium of 138, potassium of 5.5, total CO2 is 23, chloride 104, and BUN 24 with a creatinine of 4.57; unfortunately, we do not have a baseline creatinine on him. Uric acid is 11.1. Urinalysis reveals trace ketones, of significance, there is no blood and there is 1+ protein. A fractional excretion of sodium was 0.14. Has an atrophic kidney on CT scan. IMPRESSION: 1. Probable acute renal failure. 2. Chronic obstructive pulmonary disease. 3. Fibromyalgia. 4. Hypertension. 5. Hypothyroidism. DISCUSSION: He appears edematous and yet he has a markedly reduced fractional excretion of sodium. The differential diagnosis would include: 1. Vascular spasm. 2. Renal artery stenosis of his one kidney that is mostly functional. 3. Dissected aortic aneurysm. 4. Significant valvular heart disease. 5. Congestive heart failure. 6. Multiple pulmonary emboli. I think I would recommend starting with an echocardiogram to look for an ejection fraction valvular heart disease. If this is negative, it would be nice to see if we could obtain a color flow Doppler of his right kidney to look for critical renal artery stenosis on that side. A V/Q lung scan would be reasonable to look for a pulmonary embolus; however, because of a COPD that may be of low diagnostic yield, I will be a little reluctant to have him have a CT angiogram of his lungs. Obviously, I would recommend avoiding nephrotoxic agents including extra contrast agents and nonsteroidal antiinflammatory drugs. I would not aggressively diurese him at present unless his respiratory status demands it. I have discussed the case with Dr. Live. [id number]/[facility] #: [id number] PHONG
--- NOTE | 2017-08-29 23:27 | CONS ---
CC: Garo Hicks NP * NEUROLOGY CONSULTATION: DATE OF CONSULT: 08/29/17 LOCATION: The patient is in ICU bed 3. PRIMARY CARE PHYSICIAN: Garo Hicks NP REQUESTING PROVIDER: Greg Ojeda NP REASON FOR CONSULT: Tremors, dementia. HISTORY OF PRESENT ILLNESS: Leonel Lux is a 61-year-old man with multiple medical problems including diabetes, hypertension, peripheral vascular disease, morbid obesity, giant cell arteritis, treated with Actemra and previously prednisone, frontotemporal dementia among other conditions, who came in to the hospital yesterday because of increased pain, difficulty with his breathing as well as increased generalized edema. He had recently been admitted to the [facility] and released on 08/26/17. He was treated for anasarca as well as had a stroke workup because of report of left lower extremity weakness. As best I can tell from the [facility] records, he had a CT angiogram of his head and neck, but I do not see that an MRI scan of the brain was done. As mentioned, he was discharged on 08/26/17, but continued to experience swelling and decreased mobility. In addition, he has been having worsening joint pain and describes pain in his shoulders and also his legs. He was having worsening shortness of breath as well. Neurologically, he described tremors to Greg Ojeda last night, who admitted him. According to the patient and his niece who is at his bedside, these have been worsening over the past 6 months or so. They sound to be intermittent and primarily with action and posture. He states he does not have any T-shirts at home, which do not have stains on them any longer because eating and drinking has become difficult with his tremors. He has been on Depakote for about 2 years for behavioral reasons and his niece indicates that he was having anger issues and anxiety as the reason for that medication being started. He believes that his difficulties with tremors started prior to the Depakote, however. He also carries a diagnosis of dementia. He reports that he had been through several diagnoses including Lewy body dementia, Alzheimer disease, and frontotemporal dementia. He indicates he was initially evaluated by a neurologist in [place] who then sent him to the [facility] where it sounds like he saw Dr. Bernal as well as Dr. Lu. He indicates that Dr. Lu gave him a diagnosis of frontotemporal dementia and he estimates that this evaluation was about 10 years ago when he was 50. He endorses visual and auditory hallucinations at times including last evening in the emergency department when he saw sparkly objects lining the wall at the junction of the ceiling, which he likens to tiayelena. In the past, he has also seen animals when he was in his primary care doctor's office including squirrels, tigers, etc. At times when he wakes up in the middle of the night, he may have some visual hallucinations and at times he also has auditory hallucinations, which can involve simple noises such as a loud bang; at other times, he hears animal sounds or voices. He states he has been having increasing difficulty with his memory and often will not remember what he did last week or even yesterday. He is tearful when describing this and states that he feels that he cannot take it anymore and he wishes he could go back to 15 years ago when things were much better. More acutely on his admission here in the hospital, he has been found to have anasarca as well as acute renal failure and is being treated for COPD exacerbation with a workup ongoing for his acute renal failure. As mentioned, I am asked to evaluate for his tremors as well as his history of dementia. PAST MEDICAL HISTORY: 1. Diabetes. 2. Hypertension. 3. Hyperlipidemia. 4. Hypothyroidism. 5. COPD. 6. Giant cell arteritis. 7. Frontotemporal dementia. 8. Cervical degenerative disk disease. 9. Obstructive sleep apnea, on CPAP. 10. GERD. 11. Neuropathy. 12. Fibromyalgia. 13. Peripheral vascular disease status post right lower extremity stent. 14. CHF. PAST SURGICAL HISTORY: 1. Cervical and lumbar fusions. 2. Appendectomy. 3. Carpal tunnel syndrome. 4. Cholecystectomy. 5. He also has a cochlear implant by report. HOME MEDICATIONS: 1. Insulin 2 units at mealtimes. 2. Lantus 20 units at bedtime. 3. Depakote 500 mg at bedtime. 4. Actemra 162 mg subcu every other week. 5. Melatonin 3 mg at bedtime. 6. Magnesium oxide 400 mg b.i.d. 7. Seroquel 25 at bedtime. 8. Lopressor 25 mg b.i.d. 9. Aspirin 81 mg daily. 10. Ventolin as needed. 11. Potassium 30 mEq b.i.d. 12. Nitro sublingual as needed. 13. Remeron 7.5 mg at bedtime. 14. Synthroid 25 mcg daily. 15. Imdur 60 mg daily. 16. Gabapentin 300 mg t.i.d. 17. Cardizem 240 mg daily. 18. Lisinopril 20 mg daily. 19. Voltaren gel 4 times daily. 20. Bumex 2 mg b.i.d. 21. Tylenol 650 mg q.6 p.r.n. ALLERGIES: He reports an allergy to PENICILLIN. FAMILY HISTORY: His mother had cancer. Father had a history of myocardial infarction. He reports a cousin who had Alzheimer's disease at a young age. He also had a brother with ALS. SOCIAL HISTORY: He is a half a pack a day smoker. He denies alcohol use. He is a REVIEW OF SYSTEMS: As per the HPI, otherwise negative. PHYSICAL EXAM: Vital Signs: Temperature 98.4, blood pressure 144/77, heart rate 96, oxygen saturation 95% on high-flow oxygen. On general examination, he was initially asleep in the chair at his bedside, but woke as I was speaking with his niece. He is morbidly obese and appears grossly edematous. He has plethora. He has audible wheezing. His heart was in a regular rate and rhythm with no clear murmurs. Lungs reveal diffuse wheezing in all hernandez. There were no obvious carotid bruits. His skin is tense over his extremities and also over his abdomen. On neurologic exam, he is oriented to himself in the hospital, but stated it was August 2018 and that it was the . He actually gave a decent history of his workup and diagnosis of dementia. He was not able to perform serial 7s accurately past 93. He was not able to reverse the word WORLD. He was able to follow cross-body commands. No primitive reflexes noted. He registered 3/3 objects but recalled only 1/3 after a period of distraction and confabulated some responses. He was unable to retrieve these with category cues or multiple choice. He became tearful when discussing certain aspects of his history. His pupils are unequal as the right is slightly irregular, but both are reactive to light equally. His versions are full without nystagmus, but he has an alternating exotropia which he states is longstanding. Hernandez are full to confrontation. Facial sensation is subjectively diminished to light touch on the left where he reports tingling which he believes started in the last 4 to 5 days. There is no facial asymmetry. Hearing is intact to voice. The palate elevates symmetrically and the tongue is midline. On motor examination, there is no clear cogwheeling or rigidity in the upper extremities. All extremities are at least antigravity strength and the upper extremities seem to be of full strength, but it was difficult to test his lower extremities due to his positioning and his anasarca. He had some intermittent action tremor when trying to bring a cup to his mouth. He had asterixis. There was no pronator drift. There was no rest tremor noted. On [id number], there is no ataxia. Reflexes were 2+ throughout including the ankles. His toes were downgoing. I did not ambulate him. LABORATORY DATA/DIAGNOSTIC STUDIES: Laboratory data this morning showed a sodium of 138, potassium of 5.5, creatinine of 4.57 with a baseline creatinine known from the [facility] records to be around 1.7. His glucose was 234. Lactate at 5: 50 this morning was 3.4, now at 11:50 of 4.7. His liver functions were within normal on admission last evening. His CRP was 8.75. TSH 4.95. Cortisol 3.58. Phosphorus 4.6. Magnesium 1.9. His sed rate was normal. His initial white count was 10.3, today 11.5 and he is now receiving steroids for his COPD. Hematocrit 37, hemoglobin 11.9, platelets 189,000. Coagulation studies were normal. Urinalysis was negative for infection. Valproic acid level 48. Rheumatoid factor negative. Flu A and B negative. I reviewed report of the CT angiogram of his head and neck from the [facility] last week , which did not show any significant stenosis of his anterior posterior circulation. IMPRESSION: Leonel Lux is a 61-year-old man with multiple medical problems including acute renal failure, anasarca, chronic obstructive pulmonary disease exacerbation, who also carries a diagnosis of frontotemporal dementia and has been having difficulties with tremors. On exam today, he has some action tremor as well as some asterixis. He reports that he takes Depakote for mood regulation and this medication can worsen tremor, can cause parkinsonian syndrome and can cause hyperammonemia. I discussed with the patient my recommendation to discontinue this medication and see if his tremors and asterixis improve. I do note that the level is low, but still given his extensive medication list, I think if there is no strong indication to continue it, it would be best to stop the medication. He did not have any great objection to this. An ammonia could be checked, but again in the setting of Depakote use, this could be elevated and therefore, I am not sure how clinically useful it will be. In terms of his history of dementia, he does have evidence of some difficulty with tasks of attention as well as delayed recall and describes visual and auditory hallucinations. This certainly all could be consistent with an atypical dementing process such as frontotemporal dementia or Lewy body dementia. However, his metabolic status complicates assessment of his dementia. Often in Lewy body dementia, patients can have parkinsonian features as well as prominent hallucinations. In any case, I discussed with the patient that there are certainly more pressing medical issues to be addressed and the issue of his dementia is really one that should be addressed in the outpatient setting. Thank you for this consultation. If I can be of further assistance during Mr. Lux's hospitalization, please do not hesitate to let me know. [id number]/[facility] #: [id number] PHONG
[2017-08-30] MEDS: Azithromycin IV(*) 500 MG in NS 0.9% 250 ML* 250 ML IVPB SCH (00:16)
[2017-08-30] MEDS: Diltiazem TAB* 60 MG PO SCH ×5 (00:18→23:24)
[2017-08-30] MEDS: methylPREDNISolone 125 MG* 2 ML VIAL IV SCH ×4 (00:20→23:16)
[2017-08-30] MEDS: Albuterol/Ipratropium NEB.SOL* Albuterol 2.5 MG/Ipratropium 0.5 MG 3 ML INH SCH ×2 (03:38→08:43)
[2017-08-30 04:58] LABS: ABS Basophils 0.1 10^3/ul (0-0.2); ABS Eosinophils 0 10^3/ul (0-0.6); ABS Lymphocytes 0.5 10^3/ul (1.0-4.8); ABS Monocytes 1.5 10^3/ul (0-0.8); ABS Neutrophils 19.4 10^3/ul (1.5-7.7); ABS Nucleated RBC 0 10^3/ul; Eosinophil % 0 % (0-6); Hematocrit 36 % (42-52); Hemoglobin 11.4 g/dl (14.0-18.0); Lymphocyte % 2.4 % (25-47); Mean Corpuscular HGB Conc 32 g/dl (31-36); Mean Corpuscular Hemoglobin 29 pg (27-31); Mean Corpuscular Volume 90 fL (80-94); Nucleated Red Blood Cells % 0.1; Platelet Count 193 10^3/ul (150-450); Red Blood Count 3.95 10^6/ul (4.0-5.4); Red Cell Distribution Width 19 % (10.5-15); White Blood Count 21.5 10^3/ul (3.5-10.8)
[2017-08-30 05:13] LABS: EGFR Non-African American 21.3 (>60)
[2017-08-30] MEDS: Heparin VIAL(*) 5000 UNITS/ML VIAL (FIVE THOUSAND) SUBCUT SCH ×3 (05:47→21:18)
[2017-08-30] MEDS: Insulin LISPRO* 1 UNITS UNIT SUBCUT SCH ×3 (08:00→16:41)
[2017-08-30] MEDS: Metoprolol Tartrate TAB* 25 MG PO SCH ×2 (08:01→21:17)
[2017-08-30] MEDS: Gabapentin CAP(*) 400 MG PO SCH (08:01)
[2017-08-30] MEDS: Aspirin 81 mg CHEW TAB* 81 MG TAB.CHEW PO SCH (08:01)
[2017-08-30] MEDS: Isosorbide Mononitrate ER TAB* 60 MG PO SCH (08:01)
[2017-08-30] MEDS: Levothyroxine TAB* 25 MCG TAB PO SCH (08:01)
--- NOTE | 2017-08-30 08:55 | PN ---
Subjective Date of Service: 08/30/17 Interval History: Mr. Lux reports that he is feeling somewhat better as he feels less pain all over and that he is less swollen. He denies other complaint including chest pain, SOB (though on 15L salter), nausea or abdominal pain. He is tolerating intake well. Reviewed history with . She reports that he was diagnosed with frontotemporal dementia at age 50. He had very severe headaches and was diagnoses with GCA about a year ago. He has been on high dose steroids since that time but was recently weaned off them on Friday 08/18. Thereafter he developed severe generalized pain on 08/21 and was hospitalized at the [place] from 08/24-08/26 where he was treated for anasarca (suspected due to chronic steroids) with diuretics and discharged. Patient's noted no improvement in his pain and he was ultimately brought to [facility] on 08/28/17 for the same complaint. Patient's hypoxia is new, he has not been on oxygen as an outpatient. Objective Active Medications: Acetaminophen (Tylenol Tab*) 650 mg PO Q4H PRN Albuterol (Ventolin 2.5 Mg/3 Ml Neb.Kristen*) 2.5 mg INH Q2H PRN Aspirin (Aspirin 81 Mg Chew Tab*) 81 mg PO DAILY GEO Dextrose (D50w Syringe 50 Ml*) 12.5 gm IV PUSH .FOR FS < 60 - SS PRN Diltiazem HCl (Cardizem Tab*) 60 mg PO Q6HR GEO Gabapentin (Neurontin Cap(*)) 400 mg PO DAILY GEO Heparin Sodium (Porcine) (Heparin Vial(*)) 5,000 units SUBCUT Q8HR GEO Sodium Chloride (Ns 0.9% 1000 Ml*) 1,000 mls @ 100 mls/hr IV PER RATE GEO Ceftriaxone Sodium 1,000 mg/ (Sodium Chloride) 50 mls @ 200 mls/hr IVPB Q24H GEO Azithromycin 500 mg/ Sodium (Chloride) 250 mls @ 250 mls/hr IVPB Q24H GEO Insulin Glargine (Lantus(*)) 20 units SUBCUT BEDTIME GEO Insulin Human Lispro (Humalog*) 0 units SUBCUT AC GEO Isosorbide Mononitrate (Imdur Er Tab*) 60 mg PO DAILY GEO Levothyroxine Sodium (Synthroid Tab*) 25 mcg PO 0800 GEO Melatonin (Melatonin (Nf)) 3 mg PO BEDTIME GEO Methylprednisolone Sodium Succinate (Solu-Medrol 125mg *) 60 mg IV Q8H GEO Metoprolol Tartrate (Lopressor Tab*) 25 mg PO BID GEO Mirtazapine (Remeron Tab*) 7.5 mg PO BEDTIME GEO Mometasone Furoate/Formoterol Fumar (Dulera 200/5 Mdi*) 2 puff INH BID GEO Morphine Sulfate (Morphine Vial*) 4 mg IV Q4H PRN Quetiapine Fumarate (Seroquel Tab*) 25 mg PO BEDTIME GEO Vital Signs: Temp Pulse Resp BP Pulse Ox 96.6 F 60 15 156/88 97 08/30/17 08:00 08/30/17 08:40 08/30/17 08:40 08/30/17 08:00 08/30/17 08:41 Oxygen Devices in Use Now: High Flow Nasal Cannula Appearance: Male sitting up in bed in NAD Eyes: No Scleral Icterus Ears/Nose/Mouth/Throat: Mucous Membranes Moist Neck: Trachea Midline Respiratory: Symmetrical Chest Expansion and Respiratory Effort, - - Expiratory wheezing bilaterally, good aeration, no accessory muscle use Cardiovascular: NL Sounds; No Murmurs; No JVD, - - Generalized edema, pitting noted Abdominal: - - distended, soft, nontender Skin: No Rash or Ulcers Neurological: NL Muscle Strength and Tone, - - Alert, oriented to self and place Nutrition: Taking PO's Result Diagrams: 08/30/17 04:50 08/30/17 04:50 Additional Lab and Data: . Microbiology and Other Data: . Assess/Plan/Problems-Billing Mr Lux is a 61 yo M who has a h/o HTN, hypothyroidism, type II DM, COPD, diastolic CHF, MAGNO and frontal lobe dementia who presented to the ER with c/o generalized weakness and pain in LE found to have ARF and anasarca. - Patient Problems (1) Acute respiratory failure with hypoxia Comment: - Pt on CPAP overnight, now on 15L. No evidence of pulmonary edema on CXR, lungs with expiratory wheeze with concern for COPD exacerbation. - Continue tx for COPD exacerbation as per below. - Check VQ scan when patient able to lie flat. For now check bilateral dopplers of LEs to rule out DVT burden. (2) Acute renal failure Comment: - Creatinine improving with discontinuation of diuretics. - Last know creatinine was 1.7 on 08/25/16 at [place]. Patient then given diuresis IV and resumed on home bumex BID. - Appreciate nephrology consult. Dr. Antoine felt that the patient was likely intravascularly dry but total body fluid overloaded. No significant protein in urine. Plan for renal doppler of R kidney to assess for renal artery stenosis. (3) Anasarca Comment: - No clear cause at this time. - Albumin normal. [place] attributed anasarca to chronic prednisone use, now discontinued. Certainly ARF plays a role. - Hold off on diuretics for now. He was diuresed while at the [facility] with hospitalization 08/24-08/26/17 and now presents with ARF. (4) COPD (chronic obstructive pulmonary disease) Comment: - Continue prednisone, ceftriaxone and azithromycin with prn nebulizers. (5) Dementia Comment: - Appreciate neurology consult. Symptoms consistent with frontotemporal or lewy body dementia. Recommend holding depakote (used for mood stabilization) as it may worsen tremor and asterixis which were noted on admission. Will need outpatient follow up. - Continue seroquel. (6) Type II diabetes mellitus Comment: - BGs remain elevated. Check HgbA1c. - Increase lantus from 20 to 30 units at bedtime, continue lispro SSI (7) HTN (hypertension) Comment: - BP is reasonably controlled. - Continue diltiazem, isosorbide, metoprolol. Bumex on hold due to ARF. (8) Hypothyroid Comment: - TSH in acceptable range. Continue synthroid at current dose. (9) Giant cell arteritis Comment: - Has been on high dose prednisone outpatient but was recently weaned off per [place] records from most recent hospitalization. - ESR and CRP normal. - Rheumatology consult requested given unusual presentation noted above. (10) DVT prophylaxis Comment: - SQ heparin (11) Full code status Comment: Status and Disposition: Inpatient.
[2017-08-30] MEDS ORDERED: Insulin GLARGINE(*) 1 UNITS UNIT SUBCUT SCH (10:17)
[2017-08-30] MEDS: Mometasone/Formoter 200/5 MDI INH SCH ×2 (10:25→20:05)
[2017-08-30] MEDS: guaiFENesin LIQ* 100 MG/5 ML UDC PO PRN ×2 (10:34→14:33)
--- NOTE | 2017-08-30 15:05 | RAD ---
HISTORY: Edema hypoxia COMPARISONS: None relevant TECHNIQUE: Multiple transverse and longitudinal ultrasound images were obtained of the bilateral lower extremities from the level of the common femoral vein inferiorly through to the infrapopliteal veins using grayscale, color Doppler, and spectral Doppler imaging with and without compression and with augmentation. FINDINGS: The study is technically limited secondary to patient physical condition. This limits evaluation of the posterior tibial veins of the right leg. VEINS: The venous system of the bilateral lower extremities is compressible throughout its course, with normal flow on color Doppler imaging and normal response to augmentation on spectral Doppler imaging. SOFT TISSUES: Unremarkable. OTHER FINDINGS: None. IMPRESSION: 1. LIMITED STUDY. 2. NO RIGHT LOWER EXTREMITY DEEP VEIN THROMBOSIS. 3. NO LEFT LOWER EXTREMITY DEEP VEIN THROMBOSIS.
[2017-08-30] MEDS: Morphine VIAL* 4 MG/ML VIAL (1 ml vial) IV PRN ×2 (15:19→23:15)
[2017-08-30] MEDS ORDERED: oxyCODONE/Acetamin 5/325 MG* TAB PO PRN (16:27)
[2017-08-30] MEDS ORDERED: oxyCODONE/Acetamin 5/325 MG* TAB ONE (16:37)
[2017-08-30] MEDS: oxyCODONE/Acetamin 5/325 MG* TAB PO PRN (16:41)
--- NOTE | 2017-08-30 19:18 | CONSULT ---
Consult Consult: Mr. Lux has a history of diabetes, COPD, dementia and presumed giant cell arteritis. He has had probable complications of senior living steroids including anasarca. Actemra was initiated as a steroid sparing medication and it may be too soon to see how this will help as a steroid sparing medication; it is an excellent steroid sparing choice to reduce inflammation. While he had side effects from high dose steroids, it also appears that clinically he got worse when he was taken completely off of steroids. His ESR Is not elevated but may not reflect acute inflammation. I would like to check his CRP. 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 Will follow; thanks!
[2017-08-30] MEDS: CMCS:Melatonin (NF) 3 MG TAB PO SCH (21:17)
[2017-08-30] MEDS: Mirtazapine TAB* 15 MG PO SCH (21:17)
[2017-08-30] MEDS: QUEtiapine TAB* 25 MG PO SCH (21:18)
[2017-08-30] MEDS: cefTRIAXone VIAL(*) 1,000 MG in NS 0.9% 50 ML* 50 ML IVPB SCH (23:15)
[2017-08-31] MEDS: Azithromycin IV(*) 500 MG in NS 0.9% 250 ML* 250 ML IVPB SCH (00:22)
--- NOTE | 2017-08-31 05:13 | CONS ---
CONSULTATION REPORT: DATE OF CONSULT: 08/30/17 CONSULTING PHYSICIAN: Greg Ojeda NP CHIEF COMPLAINT: Polymyalgia rheumatica in the setting of giant cell arteritis. REASON FOR CONSULTATION: Giant cell arteritis. HISTORY OF PRESENT ILLNESS: Mr. Lux is a 61-year-old who has a longstanding history of multiple metabolic conditions including hypertension, hyperlipidemia as well as COPD. Per the patient as well as his family, he has been diagnosed with giant cell arteritis and seems to have been primarily treated [facility]. He stated that bilateral temporal artery biopsies have been negative in the past, but he had symptoms consistent with giant cell arteritis which overlap with polymyalgia rheumatica. These symptoms included a headache, upper extremity discomfort, arthralgias as well as polymyalgia rheumatica type symptoms with hip pain and shoulder pain. He did relate that he had some improvement symptomatically with prednisone when it was started at a high dose; however, he had side effects including worsening diabetes and he did not have complete resolution of his symptoms. He had gradual taper of prednisone over a period of several months and I would like to review his prior records from the [facility], which I understand have been requested to confirm and clarify the dosage taper, but it appears that he has been on tapered off prednisone recently and his symptoms including edema as well as swelling, including increased arthralgias and other inflammatory symptoms worsened off steroids. He was admitted with generalized pain and weakness, and because it was felt to be inflammatory in nature, he has been started on steroids, currently on Solu- Medrol. Of note, however, he has also been treated with Actemra and his family notes that he has been on this for about a month and he has noted some symptomatic improvement with Actemra and he notes that he has symptomatically been best when he was treated with low-dose prednisone in the setting of Actemra. He has had several recurrent episodes of diffuse discomfort in the shoulders and lower extremities with diffuse achiness, flushing sensation in his upper extremities and head when he raises his shoulders. He has been seen again mostly at [facility] and was recently discharged on 08/26/17. He was there for 3 days and had been discharged, although he noted that his overall discomfort was getting worse. He is just aching diffusely including his elbows and having swelling all over. He did receive some diuresis while at the [facility] when he was given Bumex. He also noted increased worsening arthralgias and diffuse pain. He did not have a high fever, but he did complain of shortness of breath which progressively caused discomfort and difficulty with mobilization and impaired activities of daily living so that it has been hard to complete certain diagnostic studies, but he denied any nausea, vomiting, or diarrhea. He denied any chest pain. He does have diffuse arthralgias in his shoulders and hips which he states is somewhat better today now that he has resumed steroids. However, his sed rate was 15 which was not high. He also has diffuse pain which is worse in the morning in his hips and pelvic girdle region. His gait has been a shuffling gait. He has also had mild tremors as well. He has had no particular joint hurting him, but he has diffuse pain all over with diffuse stiffness. His workup also noted renal failure and because of that, Nephrology has been involved as well too. In terms of his hospital course, he has received steroids as well as oxygen supplementation. Of note, he also has a history of frontotemporal dementia at the age of 50. As noted above, he initially had severe headaches when he was diagnosed with giant cell arteritis and had been on high-dose steroids, but had been weaned off them on Monday, the . Thereafter, he had severe generalized pain on , the , and was [facility] through as noted above where he was treated for anasarca which may have been a complication of chronic steroid use as well as diuretics. It was felt that he is intravascularly dry but total body fluid overloaded with no significant protein in the urine. He is going to get a renal Doppler of his right kidney to assess for renal artery stenosis. He was also found to have anasarca, but with a normal albumin. It was felt that he might have anasarca secondary to steroid use. It was noted that he had dementia and he had a neurology evaluation for frontotemporal dementia. He has also had generalized weakness in the setting of acute renal failure and anasarca. He was placed on CPAP overnight and now he is on 15 L nasal cannula. As part of his workup, he also had an abdominal and pelvic CT. PAST MEDICAL HISTORY: Notable for: 1. Diabetes. 2. Hypertension. 3. Hyperlipidemia. 4. Hypothyroidism. 5. COPD. 6. Giant cell arteritis, clinically felt to be the case. 7. Frontal lobe dementia. 8. Cervical degenerative disk disease. 9. Obstructive sleep apnea. 10. Gastroesophageal reflux disease. 11. Neuropathy. 12. Diffuse myalgias. 13. Peripheral vascular disease. 14. CHF, possibly diastolic. PAST SURGICAL HISTORY: Includes: 1. Cervical and lumbar spinal fusions. 2. He has had a right lower extremity stent. 3. Appendectomy. 4. Carpal tunnel syndrome. 5. Eustachian tubes. 6. Cholecystectomy. HOME MEDICATIONS: Include: 1. Insulin regular 2 units subcu a.c. 2. Lantus 20 units subcu at bedtime. 3. Depakote 500 mg at bedtime, which has been held. 4. Actemra 162 mg every other week, which he started about a month ago. 5. Melatonin 3 mg at bedtime. 6. Magnesium oxide 400 mg b.i.d. 7. Seroquel 25 mg at bedtime. 8. Lopressor 25 mg b.i.d. 9. Aspirin 81 mg daily. 10. Ventolin as needed. 11. Potassium. 12. Nitro. 13. Remeron 7.5 mg at bedtime. 14. Synthroid. 15. Imdur. 16. Gabapentin 300 mg t.i.d. 17. Cardizem CD 240 mg daily. 18. Lisinopril 20 mg daily. 19. Voltaren gel, which is on hold. 20. Bumex 2 mg b.i.d. 21. Tylenol as needed. ALLERGIES: Include PENICILLIN. FAMILY HISTORY: Negative for giant cell arteritis, but his mother had some sort of cancer. There is also a history of cardiac disease and a brother with Leesa Gehrig disease. SOCIAL HISTORY: He has been smoking up to a half a pack per day. He does plan to cut down at some point. He is not smoking now. He does not drink alcohol. His is his surrogate decision maker. REVIEW OF SYSTEMS: General: He has diffuse discomfort, which is somewhat improved. He denies any significant weight changes. HEENT: He denies double vision. He denies any ear discharge. Denies any rhinorrhea. No sore throat. Endocrine: No thyroid enlargement. Pulmonary: He does have shortness of breath which limits him which is chronic and has also a mild cough. GI: Denies abdominal pain. Denies nausea or vomiting. No dysuria. No frequency. No seizures. No loss of consciousness. Neurologic: No focal weakness, but he has generalized weakness. Skin: No pruritus. No skin ulcerations. Other 14- point review of systems were reviewed and were otherwise negative. PHYSICAL EXAM: Vital Signs: He had a temperature of 96.6, respiratory rate of 18, blood pressure 156/88, pulse ox 97%. General: He is a pleasant male, sitting up in no acute distress. Able to answer questions and be . His family also help provide history as well as his medication records. He has no scleral icterus. Pupils are equal, round, reactive to light and accommodate. Extraocular movements were intact. Mucous membranes were moist. Neck was supple. Trachea was midline. Lungs: Symmetric chest expansion and respiratory effort with mild expiratory wheezing, but good aeration with no accessory muscle use. Cardiovascular exam revealed normal S1 and S2. No JVP elevation. No S3 or S4. He did have generalized edema; however, with pitting noted in the lower extremities bilaterally. Abdomen: Soft, nondistended, nontender. No organomegaly. No hepatosplenomegaly. Skin: He had mild erythroderma in the lower extremities, but no rash or ulcers. Neurologic: Normal muscle tone and strength. Alert and oriented to self and place. : No CVA tenderness. Musculoskeletal: No synovitis. LABORATORY DATA: He had a BUN of 32, creatinine of 3.03. White count of 21.5, platelets of 193,000. Sed rate 15. ASSESSMENT AND PLAN: 1. Mr. Lux is a 61-year-old male with a longstanding history of presumed giant cell arteritis. He has also had some symptoms consistent with polymyalgia rheumatica overlap. He has been on longstanding steroids and had been recently over the last month initiated on Actemra as a steroid-sparing medication. At this point in time, I would also check a C-reactive protein in terms of evaluating for an inflammatory type process. He is currently on steroids, which might be helping his respiratory failure and hypoxia. If he does have a flare of giant cell arteritis, then it may be helping this as well too, although currently his sedimentation rate is normal. I agree that he would benefit from a steroid-sparing medication and he says indeed he has had some symptomatic improvement with Actemra. At this point in time, he may benefit from a chronic low-dose prednisone. Once he tapers off the IV steroids , it is felt that he could do this, that he could switch his steroids to 10 mg daily and we should taper him further from there. I would like to review his prior records. I have also reviewed his autoimmune serologies, which so far are negative for any other overlap connective tissue disorder. 2. Acute renal failure. He may be intravascularly depleted with some generalized fluid overload. I agree that steroids may have been a potential culprit halfway in terms of increasing his risk for metabolic conditions including diastolic issues as well and that Actemra would be a very powerful steroid sparing medication, but it should be held if he has any infection or severe hypercholesterolemia. This should be monitored as well too. Discussed potential side effects of this immunomodulating agent at length with the patient and his family. 3. Anasarca. May be secondary to chronic steroid use. He will be need to be on the lowest dose of prednisone that controls his symptoms. 4. History of chronic obstructive pulmonary disease, on ceftriaxone, azithromycin, and nebulizers. 5. Dementia. As per Neurology recommendations, Depakote is being held. TIME SPENT: With the patient and his family was greater than 60 minutes, with greater than 50% of the time spent in counseling the patient and his family. [id number]/[facility] #: [id number] PHONG
[2017-08-31] MEDS: Heparin VIAL(*) 5000 UNITS/ML VIAL (FIVE THOUSAND) SUBCUT SCH ×3 (05:46→22:15)
[2017-08-31 06:06] LABS: Hematocrit 36 % (42-52); Hemoglobin 11.3 g/dl (14.0-18.0); Mean Corpuscular HGB Conc 32 g/dl (31-36); Mean Corpuscular Hemoglobin 29 pg (27-31); Mean Corpuscular Volume 91 fL (80-94); Mean Platelet Volume 8.2 um3 (7.4-10.4); Platelet Count 197 10^3/ul (150-450); Red Blood Count 3.92 10^6/ul (4.0-5.4); Red Cell Distribution Width 18 % (10.5-15); White Blood Count 24.2 10^3/ul (3.5-10.8)
[2017-08-31 06:13] LABS: ABS Basophils 0.1 10^3/ul (0-0.2); ABS Eosinophils 0 10^3/ul (0-0.6); ABS Lymphocytes 0.5 10^3/ul (1.0-4.8); ABS Monocytes 0.8 10^3/ul (0-0.8); ABS Neutrophils 22.7 10^3/ul (1.5-7.7); ABS Nucleated RBC 0 10^3/ul; Eosinophil % 0 % (0-6); Lymphocyte % 2.3 % (25-47); Nucleated Red Blood Cells % 0
[2017-08-31 06:22] LABS: EGFR Non-African American 29.1 (>60)
[2017-08-31] MEDS: Morphine VIAL* 4 MG/ML VIAL (1 ml vial) IV PRN ×4 (06:40→22:15)
[2017-08-31] MEDS: Diltiazem TAB* 60 MG PO SCH ×3 (07:07→17:49)
[2017-08-31] MEDS ORDERED: Sodium Polystyrene ORAL.SOL* 15 GM/60 ML BTL PO ONE ×2 (08:19→14:45)
[2017-08-31] MEDS ORDERED: Calcium Gluconate INJ* 1 GM in NS 0.9% 50 ML* 50 ML IVPB ONE (08:20)
[2017-08-31] MEDS ORDERED: Insulin REGULAR(*) 1 UNITS UNIT IV PUSH ONE (08:21)
[2017-08-31] MEDS ORDERED: Dextrose 50% Syringe 50 ML* 25 GM/50 ML SYRINGE IV PUSH ONE (08:22)
[2017-08-31] MEDS ORDERED: Insulin GLARGINE(*) 1 UNITS UNIT SUBCUT SCH (08:41)
--- NOTE | 2017-08-31 08:42 | PN ---
Subjective Date of Service: 08/31/17 Interval History: Mr. Lux reports that he feels a bit better today. He thinks that his breathing may be better. He denies chest pain, SOB, nausea, or abdominal pain. He reports some continued aching in his low back and across his shoulders. Objective Active Medications: Acetaminophen (Tylenol Tab*) 650 mg PO Q4H PRN Albuterol (Ventolin 2.5 Mg/3 Ml Neb.Kristen*) 2.5 mg INH Q2H PRN Aspirin (Aspirin 81 Mg Chew Tab*) 81 mg PO DAILY GEO Dextrose (D50w Syringe 50 Ml*) 12.5 gm IV PUSH .FOR FS < 60 - SS PRN Diltiazem HCl (Cardizem Tab*) 60 mg PO Q6HR GEO Gabapentin (Neurontin Cap(*)) 400 mg PO DAILY GEO Guaifenesin (Robitussin*) 5 ml PO Q4H PRN Heparin Sodium (Porcine) (Heparin Vial(*)) 5,000 units SUBCUT Q8HR GEO Ceftriaxone Sodium 1,000 mg/ (Sodium Chloride) 50 mls @ 200 mls/hr IVPB Q24H GEO Azithromycin 500 mg/ Sodium (Chloride) 250 mls @ 250 mls/hr IVPB Q24H GEO Calcium Gluconate 1 gm/ Sodium (Chloride) 60 mls @ 60 mls/hr IVPB ONCE ONE Insulin Glargine (Lantus(*)) 30 units SUBCUT BEDTIME GEO Insulin Human Lispro (Humalog*) 0 units SUBCUT AC GEO Isosorbide Mononitrate (Imdur Er Tab*) 60 mg PO DAILY [facility] Levothyroxine Sodium (Synthroid Tab*) 25 mcg PO 0800 [facility] Melatonin (Melatonin (Nf)) 3 mg PO BEDTIME GEO Methylprednisolone Sodium Succinate (Solu-Medrol 125mg *) 60 mg IV Q8H GEO Metoprolol Tartrate (Lopressor Tab*) 25 mg PO BID GEO Mirtazapine (Remeron Tab*) 7.5 mg PO BEDTIME GEO Mometasone Furoate/Formoterol Fumar (Dulera 200/5 Mdi*) 2 puff INH BID GEO Morphine Sulfate (Morphine Vial*) 4 mg IV Q4H PRN Oxycodone/Acetaminophen (Percocet 5/325 Tab*) 1 tab PO Q4H PRN Oxycodone/Acetaminophen (Percocet 5/325 Tab*) 2 tab PO Q4H PRN Quetiapine Fumarate (Seroquel Tab*) 25 mg PO BEDTIME GEO Vital Signs: Temp Pulse Resp BP Pulse Ox 97.1 F 61 17 158/92 97 08/31/17 08:35 08/31/17 08:00 08/31/17 08:00 08/31/17 08:00 08/31/17 08:00 Oxygen Devices in Use Now: CPAP, High Flow Nasal Cannula Appearance: Male sitting up in chair in NAD Eyes: No Scleral Icterus Ears/Nose/Mouth/Throat: Mucous Membranes Moist Neck: Trachea Midline Respiratory: Symmetrical Chest Expansion and Respiratory Effort, Clear to Auscultation Cardiovascular: NL Sounds; No Murmurs; No JVD, No Edema Abdominal: NL Sounds; No Tenderness; No Distention Lymphatic: No Cervical Adenopathy Extremities: No Edema Skin: No Rash or Ulcers Neurological: Alert and Oriented x 3, NL Muscle Strength and Tone Nutrition: Taking PO's Result Diagrams: 08/31/17 05:50 08/31/17 05:50 Additional Lab and Data: . Microbiology and Other Data: . Assess/Plan/Problems-Billing Mr Lux is a 61 yo M who has a h/o HTN, hypothyroidism, type II DM, COPD, diastolic CHF, MAGNO and frontal lobe dementia who presented to the ER with c/o generalized weakness and pain in LE found to have ARF and anasarca. - Patient Problems (1) Acute respiratory failure with hypoxia Comment: - Pt on CPAP overnight, now on 10L. No evidence of pulmonary edema on CXR, lungs with expiratory wheeze with concern for COPD exacerbation. - Continue tx for COPD exacerbation as per below. - Check VQ scan when patient able to lie flat. Bilateral LE dopplers negative for DVT. (2) Hyperkalemia Comment: - K 6.4 today. - Check EKG, administer kayexalate, calcium gluconate, insulin and glucose. - Suspect due to renal failure, though this is now improving. (3) Acute renal failure Comment: - Creatinine continues to improve discontinuation of diuretics. - Last know creatinine was 1.7 on 08/25/16 at [facility]. Patient then given diuresis IV and resumed on home bumex BID. - Appreciate nephrology consult. Dr. Antoine felt that the patient was likely intravascularly dry but total body fluid overloaded. No significant protein in urine. Plan for renal doppler of R kidney to assess for renal artery stenosis. (4) Anasarca Comment: - No clear cause at this time, thus far has been attributed to chronic prednisone use. - Albumin normal. - Hold off on diuretics for now. He was diuresed while at the [facility] with hospitalization 08/24-08/26/17 and now presents with ARF. (5) COPD (chronic obstructive pulmonary disease) Comment: - Continue solumedrol, ceftriaxone and azithromycin with prn nebulizers. (6) Dementia Comment: - Appreciate neurology consult. Symptoms consistent with frontotemporal or lewy body dementia. Recommend holding depakote (used for mood stabilization) as it may worsen tremor and asterixis which were noted on admission. Will need outpatient follow up. - Continue seroquel. (7) Type II diabetes mellitus Comment: - BGs improved, likely elevated due to solumedrol. HgbA1c 7.0. - Increase lantus from 30 to 35 units at bedtime, continue lispro SSI (8) HTN (hypertension) Comment: - BP is reasonably controlled. - Continue diltiazem, isosorbide, metoprolol. Bumex on hold due to ARF. (9) Hypothyroid Comment: - TSH in acceptable range. Continue synthroid at current dose. (10) Giant cell arteritis Comment: - Has been on high dose prednisone outpatient but [facility]. - ESR and CRP normal. - Rheumatology consult appreciated, will ask family to bring actemra from home. (11) DVT prophylaxis Comment: - SQ heparin (12) Full code status Comment: Status and Disposition: Inpatient.
[2017-08-31] MEDS: Mometasone/Formoter 200/5 MDI INH SCH ×2 (09:07→20:11)
[2017-08-31] MEDS: Insulin LISPRO* 1 UNITS UNIT SUBCUT SCH ×3 (09:11→17:53)
[2017-08-31] MEDS: Aspirin 81 mg CHEW TAB* 81 MG TAB.CHEW PO SCH (09:13)
[2017-08-31] MEDS: Isosorbide Mononitrate ER TAB* 60 MG PO SCH (09:13)
[2017-08-31] MEDS: Gabapentin CAP(*) 400 MG PO SCH (09:13)
[2017-08-31] MEDS: Levothyroxine TAB* 25 MCG TAB PO SCH (09:13)
[2017-08-31] MEDS: Metoprolol Tartrate TAB* 25 MG PO SCH ×2 (09:13→20:30)
[2017-08-31] MEDS: methylPREDNISolone 125 MG* 2 ML VIAL IV SCH ×2 (09:14→14:45)
[2017-08-31] MEDS: oxyCODONE/Acetamin 5/325 MG* TAB PO PRN ×2 (09:14→18:15)
[2017-08-31] MEDS: Albuterol 2.5 MG/3 ML NEB.SOL* (0.083%) INH PRN ×2 (10:55→20:08)
[2017-08-31 13:23] LABS: EGFR Non-African American 30.6 (>60)
--- NOTE | 2017-08-31 18:31 | PN ---
Subjective - Subjective Date of Service: 08/31/17 - Chief complaint: giant cell arteritis History: Overall he is feeling better; his breathing has improved; he does have chronic discomfort in the shoulders and back but he has noted no worsening of his symptoms and indeed there is some improvement although he has not been very active Active Problems: Active Problems Acute renal failure (Acute) - Creatinine continues to improve discontinuation of diuretics. - Last know creatinine was 1.7 on 08/25/16 [place]. Patient then given diuresis IV and resumed on home bumex BID. - Appreciate nephrology consult. Dr. Antoine felt that the patient was likely intravascularly dry but total body fluid overloaded. No significant protein in urine. Plan for renal doppler of R kidney to assess for renal artery stenosis. Acute respiratory failure with hypoxia (Acute) J96.01 - Pt on CPAP overnight, now on 10L. No evidence of pulmonary edema on CXR, lungs with expiratory wheeze with concern for COPD exacerbation. - Continue tx for COPD exacerbation as per below. - Check VQ scan when patient able to lie flat. Bilateral LE dopplers negative for DVT. Anasarca (Acute) R60.1 - No clear cause at this time, thus far has been attributed to chronic prednisone use. - Albumin normal. - Hold off on diuretics for now. He was diuresed while at the [facility] with hospitalization 08/24-08/26/17 and now presents with ARF. COPD (chronic obstructive pulmonary disease) (Acute) J44.9 - Continue solumedrol, ceftriaxone and azithromycin with prn nebulizers. DVT prophylaxis (Acute) [id number] - SQ heparin Dementia (Acute) F03.90 - Appreciate neurology consult. Symptoms consistent with frontotemporal or lewy body dementia. Recommend holding depakote (used for mood stabilization) as it may worsen tremor and asterixis which were noted on admission. Will need outpatient follow up. - Continue seroquel. Full code status (Acute) Z78.9 Giant cell arteritis (Acute) M31.6 - Has been on high dose prednisone outpatient but [facility]. - ESR and CRP normal. - Rheumatology consult appreciated, will ask family to bring actemra from home. HTN (hypertension) (Acute) I10 - BP is reasonably controlled. - Continue diltiazem, isosorbide, metoprolol. Bumex on hold due to ARF. Hyperkalemia (Acute) E87.5 - K 6.4 today. - Check EKG, administer kayexalate, calcium gluconate, insulin and glucose. - Suspect due to renal failure, though this is now improving. Hypothyroid (Acute) E03.9 - TSH in acceptable range. Continue synthroid at current dose. Type II diabetes mellitus (Acute) - BGs improved, likely elevated due to solumedrol. HgbA1c 7.0. - Increase lantus from 30 to 35 units at bedtime, continue lispro SSI Current Medications: Current Medications Acetaminophen (Tylenol Tab*) 650 mg PO Q4H PRN PRN Reason: FEVER/PAIN Last Admin: 08/30/17 14:28 Dose: 650 mg Albuterol (Ventolin 2.5 Mg/3 Ml Neb.Kristen*) 2.5 mg INH Q2H PRN PRN Reason: SOB/WHEEZING Last Admin: 08/31/17 10:55 Dose: 2.5 mg Aspirin (Aspirin 81 Mg Chew Tab*) 81 mg PO DAILY [facility] Last Admin: 08/31/17 09:13 Dose: 81 mg Dextrose (D50w Syringe 50 Ml*) 12.5 gm IV PUSH .FOR FS < 60 - SS PRN PRN Reason: FS < 60 Diltiazem HCl (Cardizem Tab*) 60 mg PO Q6HR [facility] Last Admin: 08/31/17 17:49 Dose: Not Given Gabapentin (Neurontin Cap(*)) 400 mg PO DAILY [facility] Last Admin: 08/31/17 09:13 Dose: 400 mg Guaifenesin (Robitussin*) 5 ml PO Q4H PRN PRN Reason: COUGH Last Admin: 08/30/17 14:33 Dose: 5 ml Heparin Sodium (Porcine) (Heparin Vial(*)) 5,000 units SUBCUT Q8HR [facility] Last Admin: 08/31/17 12:41 Dose: 5,000 units Ceftriaxone Sodium 1,000 mg/ (Sodium Chloride) 50 mls @ 200 mls/hr IVPB Q24H [facility] Last Admin: 08/30/17 23:15 Dose: 200 mls/hr Azithromycin 500 mg/ Sodium (Chloride) 250 mls @ 250 mls/hr IVPB Q24H [facility] Last Admin: 08/31/17 00:22 Dose: 250 mls/hr Insulin Glargine (Lantus(*)) 35 units SUBCUT BEDTIME [facility] Insulin Human Lispro (Humalog*) 0 units SUBCUT AC [facility] PRN Reason: Protocol Last Admin: 08/31/17 17:53 Dose: 6 unit Isosorbide Mononitrate (Imdur Er Tab*) 60 mg PO DAILY [facility] Last Admin: 08/31/17 09:13 Dose: 60 mg Levothyroxine Sodium (Synthroid Tab*) 25 mcg PO 0800 [facility] Last Admin: 08/31/17 09:13 Dose: 25 mcg Melatonin (Melatonin (Nf)) 3 mg PO BEDTIME [facility] Last Admin: 08/30/17 21:17 Dose: 3 mg Methylprednisolone Sodium Succinate (Solu-Medrol 125mg *) 60 mg IV Q8H [facility] Last Admin: 08/31/17 14:45 Dose: 60 mg Metoprolol Tartrate (Lopressor Tab*) 25 mg PO BID [facility] Last Admin: 08/31/17 09:13 Dose: 25 mg Mirtazapine (Remeron Tab*) 7.5 mg PO BEDTIME [facility] Last Admin: 08/30/17 21:17 Dose: 7.5 mg Mometasone Furoate/Formoterol Fumar (Dulera 200/5 Mdi*) 2 puff INH BID [facility] Last Admin: 08/31/17 09:07 Dose: 2 puff Morphine Sulfate (Morphine Vial*) 4 mg IV Q4H PRN PRN Reason: PAIN Last Admin: 08/31/17 18:13 Dose: 4 mg Oxycodone/Acetaminophen (Percocet 5/325 Tab*) 1 tab PO Q4H PRN PRN Reason: PAIN Oxycodone/Acetaminophen (Percocet 5/325 Tab*) 2 tab PO Q4H PRN PRN Reason: PAIN Last Admin: 08/31/17 18:15 Dose: 2 tab Quetiapine Fumarate (Seroquel Tab*) 25 mg PO BEDTIME [facility] Last Admin: 08/30/17 21:18 Dose: 25 mg - Review of Systems Constitutional Symptoms: No: Weight Loss, Fatigue, Fever, Night Sweats Dermatology: Normal: Yes HEENT: Yes Normal Eyes: Positive: Normal Thyroid: Positive: Normal Pulmonary: Positive: Shortness of Breath, Exercise Intolerance Cardiology: Positive: Normal Gastroenterology: Positive: Normal Neurology: Positive: Normal Psychiatry: Positive: Normal Allergic/Immunologic: Positive: Immunocompromise Home Medications: Home Medications Medication Instructions Recorded Confirmed Type Acetaminophen TAB* [Tylenol TAB*] 650 mg PO Q6H PRN 08/28/17 08/28/17 History Albuterol HFA INHALER* [Ventolin 2 puff INH Q6H PRN 08/28/17 08/28/17 History HFA Inhaler*] Aspirin 81 mg CHEW TAB* [Aspirin 81 mg PO DAILY 08/28/17 08/28/17 History Low Dose TAB*] Bumetanide TAB* [Bumex 2 MG TAB*] 2 mg PO BID 08/28/17 08/28/17 History Diclofenac 1% GEL (NF) [Voltaren 1 applic TOPICAL QID 08/28/17 08/28/17 History 1% GEL (NF)] Diltiazem CD CAP* [Cardizem CD 240 mg PO DAILY 08/28/17 08/28/17 History CAP*] Divalproex ER TAB(*) [Depakote ER 500 mg PO BEDTIME 08/28/17 08/28/17 History TAB(*)] Gabapentin CAP(*) [Neurontin 300 300 mg PO TID 08/28/17 08/28/17 History CAP(*)] Insulin GLARGINE(*) [Lantus(*)] 20 units SUBCUT BEDTIME 08/28/17 08/28/17 History Insulin REGULAR(*) 2 units SUBCUT AC 08/28/17 08/28/17 History Isosorbide Mononitrate ER TAB* 60 mg PO DAILY 08/28/17 08/28/17 History [Imdur ER TAB*] Levothyroxine TAB* [Synthroid TAB*] 25 mcg PO 0800 08/28/17 08/28/17 History Lisinopril TAB* [Prinivil TAB*] 20 mg PO DAILY 08/28/17 08/28/17 History Magnesium Oxide [Kp Mag-Oxide 400 mg PO BID 08/28/17 08/28/17 History Magnesium] Melatonin [Melatin] 3 mg PO BEDTIME 08/28/17 08/28/17 History Metoprolol Tartrate TAB* 25 mg PO BID 08/28/17 08/28/17 History [Lopressor TAB*] Mirtazapine TAB* [Remeron TAB*] 7.5 mg PO BEDTIME 08/28/17 08/28/17 History Nitroglycerin TAB 0.4 MG* 0.4 mg SL . NEEDED PRN 08/28/17 08/28/17 History Potassium Chlor TAB* [Klor Con ER 30 meq PO BID 08/28/17 08/28/17 History TAB*] QUEtiapine TAB* [Seroquel 25 MG 25 mg PO BEDTIME 08/28/17 08/28/17 History TAB*] Tocilizumab [Actemra] 162 mg SQ SEE INSTRUCTIONS 08/28/17 08/28/17 History Allergies: Allergies Allergy/AdvReac Type Severity Reaction Status Date / Time Penicillins Allergy Hives Verified 08/28/17 18:41 Objective - Vital Signs Vital Signs: Vital Signs 08/30/17 08/30/17 08/30/17 19:00 19:03 19:31 Temperature Pulse Rate 67 62 61 Respiratory 23 24 22 Rate Blood Pressure 131/94 135/78 (mmHg) O2 Sat by Pulse 100 83 100 Oximetry 08/30/17 08/30/17 08/30/17 20:00 20:01 20:09 Temperature 97.9 F Pulse Rate 58 59 61 Respiratory 16 15 24 Rate Blood Pressure 155/129 (mmHg) O2 Sat by Pulse 99 98 98 Oximetry 08/30/17 08/30/17 08/30/17 21:00 21:01 21:30 Temperature Pulse Rate 63 62 58 Respiratory 17 11 11 Rate Blood Pressure 144/92 174/91 (mmHg) O2 Sat by Pulse 98 99 98 Oximetry 08/30/17 08/30/17 08/30/17 21:35 22:00 22:30 Temperature Pulse Rate 58 56 53 Respiratory 12 8 9 Rate Blood Pressure 157/103 141/101 157/83 (mmHg) O2 Sat by Pulse 99 98 98 Oximetry 08/30/17 08/30/17 08/30/17 23:00 23:15 23:30 Temperature Pulse Rate 56 52 Respiratory 15 16 7 Rate Blood Pressure 155/89 (mmHg) O2 Sat by Pulse 98 95 Oximetry 08/31/17 08/31/17 08/31/17 00:00 00:01 00:10 Temperature 96.7 F Pulse Rate 55 56 61 Respiratory 14 15 Rate Blood Pressure 134/68 (mmHg) O2 Sat by Pulse 92 90 89 Oximetry 08/31/17 08/31/17 08/31/17 00:34 00:52 01:00 Temperature Pulse Rate 60 59 57 Respiratory 7 13 Rate Blood Pressure 171/90 158/96 140/76 (mmHg) O2 Sat by Pulse 96 95 94 Oximetry 08/31/17 08/31/17 08/31/17 01:30 02:00 02:30 Temperature Pulse Rate 54 49 48 Respiratory 12 13 6 Rate Blood Pressure 119/70 130/77 123/78 (mmHg) O2 Sat by Pulse 96 95 95 Oximetry 08/31/17 08/31/17 08/31/17 03:00 03:17 03:31 Temperature 95.2 F Pulse Rate 50 46 Respiratory 7 6 Rate Blood Pressure 122/68 124/68 (mmHg) O2 Sat by Pulse 96 95 Oximetry 08/31/17 08/31/17 08/31/17 04:00 04:30 05:00 Temperature Pulse Rate 48 51 54 Respiratory 5 Rate Blood Pressure 119/68 142/81 (mmHg) O2 Sat by Pulse 94 98 98 Oximetry 08/31/17 08/31/17 08/31/17 05:01 05:30 06:00 Temperature Pulse Rate 53 55 69 Respiratory 7 11 13 Rate Blood Pressure 148/78 151/89 176/110 (mmHg) O2 Sat by Pulse 98 96 97 Oximetry 08/31/17 08/31/17 08/31/17 06:31 06:40 07:00 Temperature Pulse Rate 60 56 Respiratory 15 20 10 Rate Blood Pressure 157/88 149/88 (mmHg) O2 Sat by Pulse 97 96 Oximetry 08/31/17 08/31/17 08/31/17 07:30 08:00 08:30 Temperature Pulse Rate 58 61 55 Respiratory 12 10 15 Rate Blood Pressure 167/86 158/92 151/84 (mmHg) O2 Sat by Pulse 95 97 96 Oximetry 08/31/17 08/31/17 08/31/17 08:35 09:00 09:04 Temperature 97.1 F Pulse Rate 65 Respiratory 14 Rate Blood Pressure (mmHg) O2 Sat by Pulse 100 Oximetry 08/31/17 08/31/17 08/31/17 09:08 09:14 09:31 Temperature Pulse Rate 66 62 Respiratory 14 20 Rate Blood Pressure 165/109 (mmHg) O2 Sat by Pulse 100 100 Oximetry 08/31/17 08/31/17 08/31/17 09:57 10:00 11:00 Temperature 96.6 F 96.8 F Pulse Rate 66 75 Respiratory 10 9 Rate Blood Pressure 182/101 (mmHg) O2 Sat by Pulse 100 100 95 Oximetry 08/31/17 08/31/17 08/31/17 11:06 11:31 11:39 Temperature 97.0 F 97.2 F Pulse Rate 68 71 Respiratory 15 16 10 Rate Blood Pressure 200/107 195/111 (mmHg) O2 Sat by Pulse 99 98 Oximetry 08/31/17 08/31/17 08/31/17 12:00 12:01 12:30 Temperature 97.2 F 97.2 F 97.2 F Pulse Rate 76 75 74 Respiratory 8 21 10 Rate Blood Pressure 178/119 180/105 (mmHg) O2 Sat by Pulse 98 100 99 Oximetry 08/31/17 08/31/17 08/31/17 13:00 13:01 13:31 Temperature 97.2 F 97.2 F 97.2 F Pulse Rate 72 71 73 Respiratory 13 12 14 Rate Blood Pressure 170/133 132/112 (mmHg) O2 Sat by Pulse 98 98 97 Oximetry 08/31/17 08/31/17 08/31/17 14:00 14:01 14:31 Temperature 97.2 F 97.2 F 97.0 F Pulse Rate 68 69 69 Respiratory 10 10 13 Rate Blood Pressure 178/94 171/93 (mmHg) O2 Sat by Pulse 98 98 98 Oximetry 08/31/17 08/31/17 08/31/17 15:00 15:21 15:31 Temperature 96.8 F 97.6 F 96.8 F Pulse Rate 64 65 Respiratory 12 7 Rate Blood Pressure 149/97 (mmHg) O2 Sat by Pulse 90 92 Oximetry 08/31/17 08/31/17 08/31/17 16:00 16:01 18:13 Temperature 96.8 F 96.8 F Pulse Rate 66 67 Respiratory 6 7 20 Rate Blood Pressure 157/91 (mmHg) O2 Sat by Pulse 94 93 Oximetry 08/31/17 18:15 Temperature Pulse Rate Respiratory 13 Rate Blood Pressure (mmHg) O2 Sat by Pulse Oximetry - Intake and Output Intake and Output: Intake & Output 08/29/17 08/30/17 08/31/17 09/01/17 06:59 06:59 06:59 06:59 Intake Total 1350 3793 1545 1081 Output Total 350 1342 1145 968 Balance 1000 2451 400 113 Weight 246 lb 4.101 oz 255 lb 11.779 oz 257 lb 0.944 oz Intake: IV Fluids 1350 2463 35 61 ABX - AZITHROMYCIN 250 NS (0.9%) 1100 2463 35 calcium gluconate 61 IVPB 330 330 ABX - AZITHROMYCIN 275 270 ABX - CEFTRIAXONE 55 60 Oral 1000 1180 1020 Output: Urine 0 Verma 350 1342 1145 968 ADLs: Meal Record Start: 08/29/17 00: 29 Freq: 09,13,18 Status: Active Protocol: Document 08/29/17 10:00 [id number] (Rec: 08/29/17 12:19 [id number] ICU-C11) Document 08/29/17 13:00 [id number] (Rec: 08/29/17 13:43 [id number] ICU-C11) Document 08/29/17 18:00 [id number] (Rec: 08/29/17 19:51 [id number] ICU-C22) Document 08/30/17 09:00 [id number] (Rec: 08/30/17 10:01 [id number] ICU-C10) Document 08/30/17 13:00 [id number] (Rec: 08/30/17 13:54 [id number] ICU-C18) Document 08/30/17 18:00 [id number] (Rec: 08/30/17 19:59 [id number] ICU-C15) Document 08/31/17 09:00 [id number] (Rec: 08/31/17 09:54 [id number] ICU-C15) Document 08/31/17 10:16 [id number] (Rec: 08/31/17 10:17 [id number] ICU-C18) Document 08/31/17 13:00 [id number] (Rec: 08/31/17 14:20 [id number] ICU-C15) Intake and Output Start: 08/29/17 00: 29 Freq: Q1HR Status: Active Protocol: Document 08/29/17 06:00 [id number] (Rec: 08/29/17 06:36 [id number] ICU-M18) Document 08/29/17 11:00 [id number] (Rec: 08/29/17 11:36 [id number] ICU-C15) Document 08/29/17 14:41 [id number] (Rec: 08/29/17 14:42 [id number] ICU-C11) Document 08/29/17 17:00 [id number] (Rec: 08/29/17 17:03 [id number] ICU-M18) Document 08/29/17 19:00 [id number] (Rec: 08/29/17 19:04 [id number] ICU-C15) Document 08/29/17 20:12 [id number] (Rec: 08/29/17 20:49 [id number] ICU-C25) Document 08/29/17 21:04 [id number] (Rec: 08/29/17 21:04 [id number] ICU-C25) Document 08/29/17 21:52 [id number] (Rec: 08/29/17 21:53 [id number] ICU-M20) Document 08/29/17 22:12 [id number] (Rec: 08/29/17 22:25 [id number] ICU-C25) Document 08/29/17 23:02 [id number] (Rec: 08/29/17 23:02 [id number] ICU-C25) Document 08/30/17 00:10 [id number] (Rec: 08/30/17 00:36 [id number] ICU-C25) Document 08/30/17 01:00 [id number] (Rec: 08/30/17 01:15 [id number] ICU-C25) Document 08/30/17 01:59 [id number] (Rec: 08/30/17 01:59 [id number] ICU-C25) Document 08/30/17 03:31 [id number] (Rec: 08/30/17 03:35 [id number] ICU-C25) Document 08/30/17 04:04 [id number] (Rec: 08/30/17 04:04 [id number] ICU-C25) Document 08/30/17 05:00 [id number] (Rec: 08/30/17 05:00 [id number] ICU-C25) Document 08/30/17 05:45 [id number] (Rec: 08/30/17 05:45 [id number] ICU-M20) Document 08/30/17 07:45 [id number] (Rec: 08/30/17 07:46 [id number] ICU-C10) Document 08/30/17 07:59 [id number] (Rec: 08/30/17 08:00 [id number] ICU-M18) Document 08/30/17 10:11 [id number] (Rec: 08/30/17 10:11 [id number] ICU-C10) Document 08/30/17 12:35 [id number] (Rec: 08/30/17 12:35 PCH1366 ICU-M26) Document 08/30/17 13:54 [id number] (Rec: 08/30/17 13:54 [id number] ICU-C10) Document 08/30/17 14:38 [id number] (Rec: 08/30/17 14:38 [id number] ICU-C10) Document 08/30/17 15:10 [id number] (Rec: 08/30/17 15:10 [id number] ICU-C10) Document 08/30/17 16:50 [id number] (Rec: 08/30/17 16:50 [id number] ICU-C10) Document 08/30/17 17:05 [id number] (Rec: 08/30/17 17:05 [id number] ICU-C10) Document 08/30/17 19:00 [id number] (Rec: 08/30/17 19:59 [id number] ICU-C15) Document 08/30/17 19:59 [id number] (Rec: 08/30/17 19:59 [id number] ICU-C15) Document 08/30/17 21:00 [id number] (Rec: 08/30/17 22:12 [id number] ICU-C15) Document 08/30/17 23:58 [id number] (Rec: 08/30/17 23:58 [id number] ICU-C15) Document 08/31/17 01:00 [id number] (Rec: 08/31/17 01:07 [id number] ICU-C15) Document 08/31/17 02:00 TDS2052 (Rec: 08/31/17 02:16 [id number] ICU-C15) Document 08/31/17 04:00 [id number] (Rec: 08/31/17 04:23 [id number] ICU-C15) Document 08/31/17 13:03 [id number] (Rec: 08/31/17 13:04 [id number] ICU-C15) Document 08/31/17 14:30 [id number] (Rec: 08/31/17 14:30 [id number] ICU-C15) Document 08/31/17 15:21 [id number] (Rec: 08/31/17 15:21 [id number] ICU-C15) Document 08/31/17 16:12 [id number] (Rec: 08/31/17 16:12 [id number] ICU-C15) - Physical Exam General Physical Exam Comment: NO acute distress; sitting up Eye Exam: bilateral: PERRLA Thyroid Function: Clinically Euthyroid Endocrine: Yes Central Obesity Lungs and Chest: Yes: Chest Expansion Full, Chest Expansion Symetrica, Percussion Note Resonant Heart Rate and Rhythm: Normal JVP: Not Elevated Fowler Beat: Non Displaced Additional Cardiovascular: Yes: Fowler Beat not Displaced - Rheumotological System Joints: Joint Swelling Additional Musculoskeletal: Kyphosis - Neuro Psychiatric: Normal Speech: Normal Results - Results Lab Results: Laboratory Results - last 24 hr 08/30/17 08/30/17 08/31/17 19:13 21:31 05:50 WBC RBC Hgb Hct MCV MCH MCHC RDW Plt Count MPV Neut % (Auto) Lymph % (Auto) Travis % (Auto) Eos % (Auto) Baso % (Auto) Absolute Neuts (auto) Absolute Lymphs (auto) Absolute Monos (auto) Absolute Eos (auto) Absolute Basos (auto) Absolute Nucleated RBC Nucleated RBC % Sodium 136 L Potassium 6.4 H* Chloride 105 Carbon Dioxide 25 Anion Gap 6 BUN 40 H Creatinine 2.31 H Est GFR ( Amer) 37.4 Est GFR (Non-Af Amer) 29.1 BUN/Creatinine Ratio 17.3 Glucose 229 H POC Glucose (mg/dL) 216 H Calcium 9.4 C-Reactive Protein 3.87 08/31/17 08/31/17 08/31/17 05:50 08:37 12:25 WBC 24.2 H RBC 3.92 L Hgb 11.3 L Hct 36 L MCV 91 MCH 29 MCHC 32 RDW 18 H Plt Count 197 MPV 8.2 Neut % (Auto) 93.8 H Lymph % (Auto) 2.3 L Travis % (Auto) 3.4 Eos % (Auto) 0 Baso % (Auto) 0.5 Absolute Neuts (auto) 22.7 H Absolute Lymphs (auto) 0.5 L Absolute Monos (auto) 0.8 Absolute Eos (auto) 0 Absolute Basos (auto) 0.1 Absolute Nucleated RBC 0 Nucleated RBC % 0 Sodium Potassium Chloride Carbon Dioxide Anion Gap BUN Creatinine Est GFR ( Amer) Est GFR (Non-Af Amer) BUN/Creatinine Ratio Glucose POC Glucose (mg/dL) 221 H 278 H Calcium C-Reactive Protein 08/31/17 08/31/17 12:53 16:28 WBC RBC Hgb Hct MCV MCH MCHC RDW Plt Count MPV Neut % (Auto) Lymph % (Auto) Travis % (Auto) Eos % (Auto) Baso % (Auto) Absolute Neuts (auto) Absolute Lymphs (auto) Absolute Monos (auto) Absolute Eos (auto) Absolute Basos (auto) Absolute Nucleated RBC Nucleated RBC % Sodium 138 L Potassium 5.5 H Chloride 102 Carbon Dioxide 28 Anion Gap 8 BUN 41 H Creatinine 2.21 H Est GFR ( Amer) 39.4 Est GFR (Non-Af Amer) 30.6 BUN/Creatinine Ratio 18.6 Glucose 302 H POC Glucose (mg/dL) 248 H Calcium 9.1 C-Reactive Protein Assessment - Problem List Assessment: Patient Problems Acute renal failure (Acute) Acute respiratory failure with hypoxia (Acute) Anasarca (Acute) COPD (chronic obstructive pulmonary disease) (Acute) DVT prophylaxis (Acute) Dementia (Acute) Full code status (Acute) Giant cell arteritis (Acute) HTN (hypertension) (Acute) Hyperkalemia (Acute) Hypothyroid (Acute) Type II diabetes mellitus (Acute) Plan: Giant cell arteritis: inflammatory markers are normal. He is on IV steroids. He will start Actemra again soon. Once his condition stabilizes, consider prednisone 10mg daily
[2017-08-31] MEDS ORDERED: hydrALAZINE IV* 20 MG/ML VIAL IV SLOW PU PRN (18:42)
[2017-08-31] MEDS: QUEtiapine TAB* 25 MG PO SCH (20:30)
[2017-08-31] MEDS: Mirtazapine TAB* 15 MG PO SCH (20:30)
[2017-08-31] MEDS: CMCS:Melatonin (NF) 3 MG TAB PO SCH (20:30)
[2017-08-31] MEDS: cefTRIAXone VIAL(*) 1,000 MG in NS 0.9% 50 ML* 50 ML IVPB SCH (23:55)
[2017-09-01] MEDS: methylPREDNISolone 125 MG* 2 ML VIAL IV SCH ×2 (00:03→08:55)
[2017-09-01] MEDS: Diltiazem TAB* 60 MG PO SCH ×4 (00:05→18:08)
[2017-09-01] MEDS: Azithromycin IV(*) 500 MG in NS 0.9% 250 ML* 250 ML IVPB SCH (00:59)
[2017-09-01 05:02] LABS: Hematocrit 35 % (42-52); Hemoglobin 11.3 g/dl (14.0-18.0); Mean Corpuscular HGB Conc 32 g/dl (31-36); Mean Corpuscular Hemoglobin 29 pg (27-31); Mean Corpuscular Volume 90 fL (80-94); Mean Platelet Volume 8.1 um3 (7.4-10.4); Platelet Count 213 10^3/ul (150-450); Red Blood Count 3.93 10^6/ul (4.0-5.4); Red Cell Distribution Width 18 % (10.5-15); White Blood Count 20.5 10^3/ul (3.5-10.8)
[2017-09-01 05:09] LABS: ABS Basophils 0.1 10^3/ul (0-0.2); ABS Eosinophils 0 10^3/ul (0-0.6); ABS Lymphocytes 0.5 10^3/ul (1.0-4.8); ABS Monocytes 1.1 10^3/ul (0-0.8); ABS Neutrophils 18.9 10^3/ul (1.5-7.7)
[2017-09-01 05:19] LABS: EGFR Non-African American 35.6 (>60)
[2017-09-01] MEDS: Heparin VIAL(*) 5000 UNITS/ML VIAL (FIVE THOUSAND) SUBCUT SCH ×2 (05:52→14:04)
[2017-09-01 05:53] LABS: ABS Nucleated RBC 0 10^3/ul; Eosinophil % 0 % (0-6); Lymphocyte % 2.3 % (25-47); Nucleated Red Blood Cells % 0
[2017-09-01] MEDS: Mometasone/Formoter 200/5 MDI INH SCH ×2 (08:45→20:22)
[2017-09-01] MEDS: Insulin LISPRO* 1 UNITS UNIT SUBCUT SCH ×3 (08:51→18:06)
[2017-09-01] MEDS: Gabapentin CAP(*) 400 MG PO SCH (08:56)
[2017-09-01] MEDS: Metoprolol Tartrate TAB* 25 MG PO SCH (08:56)
[2017-09-01] MEDS: Levothyroxine TAB* 25 MCG TAB PO SCH (08:57)
[2017-09-01] MEDS: Isosorbide Mononitrate ER TAB* 60 MG PO SCH (08:57)
[2017-09-01] MEDS: Aspirin 81 mg CHEW TAB* 81 MG TAB.CHEW PO SCH (08:57)
[2017-09-01] MEDS: Morphine VIAL* 4 MG/ML VIAL (1 ml vial) IV PRN (12:35)
--- NOTE | 2017-09-01 13:40 | PN ---
Subjective Date of Service: 09/01/17 Interval History: Mr. Lux reports that he feels much better and is adamant that he be discharged to home. Though he is initially on 4L NC, he was found to actually have a SpO2 of 94% on room air at rest. He does need 4L NC with ambulation but was able to ambulate the length of a long hallway on the unit. He denies chest pain, SOB, nausea, or abdominal pain. He feels that his overall swelling has decreased. Objective Active Medications: Acetaminophen (Tylenol Tab*) 650 mg PO Q4H PRN Albuterol (Ventolin 2.5 Mg/3 Ml Neb.Kristen*) 2.5 mg INH Q2H PRN Aspirin (Aspirin 81 Mg Chew Tab*) 81 mg PO DAILY GEO Dextrose (D50w Syringe 50 Ml*) 12.5 gm IV PUSH .FOR FS < 60 - SS PRN Diltiazem HCl (Cardizem Tab*) 60 mg PO Q6HR GEO Gabapentin (Neurontin Cap(*)) 400 mg PO DAILY GEO Guaifenesin (Robitussin*) 5 ml PO Q4H PRN Heparin Sodium (Porcine) (Heparin Vial(*)) 5,000 units SUBCUT Q8HR GEO Hydralazine HCl (Apresoline Iv*) 5 mg IV SLOW PU Q6H PRN Ceftriaxone Sodium 1,000 mg/ (Sodium Chloride) 50 mls @ 200 mls/hr IVPB Q24H GEO Azithromycin 500 mg/ Sodium (Chloride) 250 mls @ 250 mls/hr IVPB Q24H GEO Insulin Glargine (Lantus(*)) 35 units SUBCUT BEDTIME GEO Insulin Human Lispro (Humalog*) 0 units SUBCUT AC GEO Isosorbide Mononitrate (Imdur Er Tab*) 60 mg PO DAILY GEO Levothyroxine Sodium (Synthroid Tab*) 25 mcg PO 0800 GEO Melatonin (Melatonin (Nf)) 3 mg PO BEDTIME GEO Methylprednisolone Sodium Succinate (Solu-Medrol 125mg *) 60 mg IV Q8H GEO Metoprolol Tartrate (Lopressor Tab*) 25 mg PO BID GEO Mirtazapine (Remeron Tab*) 7.5 mg PO BEDTIME GEO Mometasone Furoate/Formoterol Fumar (Dulera 200/5 Mdi*) 2 puff INH BID GEO Morphine Sulfate (Morphine Vial*) 4 mg IV Q4H PRN Oxycodone/Acetaminophen (Percocet 5/325 Tab*) 1 tab PO Q4H PRN Oxycodone/Acetaminophen (Percocet 5/325 Tab*) 2 tab PO Q4H PRN Quetiapine Fumarate (Seroquel Tab*) 25 mg PO BEDTIME [facility] Oxygen Devices in Use Now: Nasal Cannula Appearance: Male sitting up in chair in NAD Eyes: No Scleral Icterus Ears/Nose/Mouth/Throat: Mucous Membranes Moist Neck: Trachea Midline Respiratory: Symmetrical Chest Expansion and Respiratory Effort, Clear to Auscultation Cardiovascular: NL Sounds; No Murmurs; No JVD, No Edema Abdominal: NL Sounds; No Tenderness; No Distention Lymphatic: No Cervical Adenopathy Skin: No Rash or Ulcers Neurological: Alert and Oriented x 3, NL Muscle Strength and Tone, - - Generalized anasarca Nutrition: Taking PO's Result Diagrams: 09/01/17 04:48 09/01/17 04:48 Additional Lab and Data: . Microbiology and Other Data: . Assess/Plan/Problems-Billing Mr Lux is a 61 yo M who has a h/o HTN, hypothyroidism, type II DM, COPD, diastolic CHF, MAGNO and frontal lobe dementia who presented to the ER with c/o generalized weakness and pain in LE found to have ARF and anasarca. - Patient Problems (1) Acute respiratory failure with hypoxia Comment: - Pt on CPAP overnight, now on room air at rest. Needs 4L NC with ambulation. - No evidence of pulmonary edema on CXR, lungs with expiratory wheeze with concern for COPD exacerbation. - Continue tx for COPD exacerbation as per below. - VQ scan negative. Bilateral LE dopplers negative for DVT. (2) Hyperkalemia Comment: - Resolved. (3) Acute renal failure Comment: - Creatinine continues to improve discontinuation of diuretics. Plan to hold diuretics and lisinopril but will need close follow up with PCP as these medications will likely need to resumed and monitored closely. - Last know creatinine was 1.7 on 08/25/16 at [place]. Patient then given diuresis IV and resumed on home bumex BID. - Appreciate nephrology consult. Dr. Antoine felt that the patient was likely intravascularly dry but total body fluid overloaded. No significant protein in urine. Plan for renal doppler of R kidney to assess for renal artery stenosis outpatient. (4) Anasarca Comment: - No clear cause at this time, thus far has been attributed to chronic prednisone use. - Albumin normal. - Hold off on diuretics for now. He was diuresed while at the [facility] with hospitalization 08/24-08/26/17 and now presents with ARF. (5) COPD (chronic obstructive pulmonary disease) Comment: - Continue solumedrol, ceftriaxone and azithromycin with prn nebulizers. (6) Dementia Comment: - Appreciate neurology consult. Symptoms consistent with frontotemporal or lewy body dementia. Recommend holding depakote (used for mood stabilization) as it may worsen tremor and asterixis which were noted on admission. Will need outpatient follow up. - Continue seroquel. (7) Type II diabetes mellitus Comment: - BGs improved, likely elevated due to solumedrol. HgbA1c 7.0. - Increase lantus from 30 to 35 units at bedtime, continue lispro SSI (8) HTN (hypertension) Comment: - BP is reasonably controlled. - Continue diltiazem, isosorbide, metoprolol. Bumex on hold due to ARF. (9) Hypothyroid Comment: - TSH in acceptable range. Continue synthroid at current dose. (10) Giant cell arteritis Comment: - Has been on high dose prednisone outpatient but was recently weaned off per [place] records from most recent hospitalization. - ESR and CRP normal. - Rheumatology consult appreciated, patient should be titrated down to prednisone 10mg and actemra should be continued. (11) DVT prophylaxis Comment: - SQ heparin (12) Full code status Comment: Status and Disposition: Inpatient. Discharge to home.
--- NOTE | 2017-09-01 13:58 | RAD ---
HISTORY: Acute respiratory failure COMPARISON: Chest x-ray dated September 01, 2017 TECHNIQUE: Pulmonary ventilation/perfusion scintigraphy was performed with dynamic cine images and multiple planar images. DOSE: Ventilation: Xenon-133 15.3 millicuries, administered at 1:20 PM on September 01, 2017 Perfusion: Technetium 99m microaggregated albumin 6.2 millicuries, administered at 1:25 PM on September 01, 2017 FINDINGS: Ventilation: Homogeneous ventilation Perfusion: There are 2, small, subsegmental, unmatched perfusion defects of the superior segment of the right lower lobe and of the left upper lobe. IMPRESSION: 2 SUBSEGMENTAL UNMATCHED DEFECTS, CONSISTENT WITH A LOW PROBABILITY V/Q SCAN BY PIOPED CRITERIA CPT II Codes: 3570F
--- NOTE | 2017-09-01 14:16 | RAD ---
HISTORY: V/Q scan comparison COMPARISONS: August 28, 2017 VIEWS: 2: Frontal and lateral views of the chest. FINDINGS: CARDIOMEDIASTINAL SILHOUETTE: The cardiomediastinal silhouette is normal. JIMMY: The jimmy are normal. PLEURA: The costophrenic angles are sharp. No pleural abnormalities are noted. LUNG PARENCHYMA: The lungs are clear. ABDOMEN: The upper abdomen is clear. There is no subphrenic gas. BONES AND SOFT TISSUES: The patient is status post anterior cervical fusion. OTHER: None. IMPRESSION: NO ACTIVE CARDIOPULMONARY DISEASE.
[2017-09-01] MEDS ORDERED: LORazepam TAB(*) 0.5 MG PO PRN (15:59)
[2017-09-01] MEDS ORDERED: Diltiazem TAB* 60 MG PO ONE (15:59)
[2017-09-01 16:21] VITALS: BP 167/69
--- NOTE | 2017-09-01 18:19 | PN ---
Subjective - Subjective Date of Service: 09/01/17 - chief complaint: giant cell arteritis History: Overall Mr. Lux is feeling better; he noted that his joint discomfort is minimal. Overall breathing has improved; morning stiffness is minimal Active Problems: Active Problems Acute renal failure (Acute) - Creatinine continues to improve discontinuation of diuretics. Plan to hold diuretics and lisinopril but will need close follow up with PCP as these medications will likely need to resumed and monitored closely. - Last know creatinine was 1.7 on 08/25/16 at [place]. Patient then given diuresis IV and resumed on home bumex BID. - Appreciate nephrology consult. Dr. Antoine felt that the patient was likely intravascularly dry but total body fluid overloaded. No significant protein in urine. Plan for renal doppler of R kidney to assess for renal artery stenosis outpatient. Acute respiratory failure with hypoxia (Acute) J96.01 - Pt on CPAP overnight, now on room air at rest. Needs 4L NC with ambulation. - No evidence of pulmonary edema on CXR, lungs with expiratory wheeze with concern for COPD exacerbation. - Continue tx for COPD exacerbation as per below. - VQ scan negative. Bilateral LE dopplers negative for DVT. Anasarca (Acute) R60.1 - No clear cause at this time, thus far has been attributed to chronic prednisone use. - Albumin normal. - Hold off on diuretics for now. He was diuresed while at the [facility] with hospitalization 08/24-08/26/17 and now presents with ARF. COPD (chronic obstructive pulmonary disease) (Acute) J44.9 - Continue solumedrol, ceftriaxone and azithromycin with prn nebulizers. DVT prophylaxis (Acute) [id number] - SQ heparin Dementia (Acute) F03.90 - Appreciate neurology consult. Symptoms consistent with frontotemporal or lewy body dementia. Recommend holding depakote (used for mood stabilization) as it may worsen tremor and asterixis which were noted on admission. Will need outpatient follow up. - Continue seroquel. Full code status (Acute) Z78.9 Giant cell arteritis (Acute) M31.6 - Has been on high dose prednisone outpatient but [facility]. - ESR and CRP normal. - Rheumatology consult appreciated, patient should be titrated down to prednisone 10mg and actemra should be continued. HTN (hypertension) (Acute) I10 - BP is reasonably controlled. - Continue diltiazem, isosorbide, metoprolol. Bumex on hold due to ARF. Hyperkalemia (Acute) E87.5 - Resolved. Hypothyroid (Acute) E03.9 - TSH in acceptable range. Continue synthroid at current dose. Type II diabetes mellitus (Acute) - BGs improved, likely elevated due to solumedrol. HgbA1c 7.0. - Increase lantus from 30 to 35 units at bedtime, continue lispro SSI Current Medications: Current Medications Acetaminophen (Tylenol Tab*) 650 mg PO Q4H PRN PRN Reason: FEVER/PAIN Last Admin: 08/30/17 14:28 Dose: 650 mg Albuterol (Ventolin 2.5 Mg/3 Ml Neb.Kristen*) 2.5 mg INH Q2H PRN PRN Reason: SOB/WHEEZING Last Admin: 08/31/17 20:08 Dose: 2.5 mg Aspirin (Aspirin 81 Mg Chew Tab*) 81 mg PO DAILY [facility] Last Admin: 09/01/17 08:57 Dose: 81 mg Dextrose (D50w Syringe 50 Ml*) 12.5 gm IV PUSH .FOR FS < 60 - SS PRN PRN Reason: FS < 60 Diltiazem HCl (Cardizem Tab*) 60 mg PO Q6HR [facility] Last Admin: 09/01/17 18:08 Dose: 60 mg Gabapentin (Neurontin Cap(*)) 400 mg PO DAILY [facility] Last Admin: 09/01/17 08:56 Dose: 400 mg Guaifenesin (Robitussin*) 5 ml PO Q4H PRN PRN Reason: COUGH Last Admin: 08/30/17 14:33 Dose: 5 ml Heparin Sodium (Porcine) (Heparin Vial(*)) 5,000 units SUBCUT Q8HR [facility] Last Admin: 09/01/17 14:04 Dose: 5,000 units Hydralazine HCl (Apresoline Iv*) 5 mg IV SLOW PU Q6H PRN PRN Reason: SBP > 185 Last Admin: 09/01/17 08:53 Dose: 5 mg Ceftriaxone Sodium 1,000 mg/ (Sodium Chloride) 50 mls @ 200 mls/hr IVPB Q24H [facility] Last Admin: 08/31/17 23:55 Dose: 200 mls/hr Azithromycin 500 mg/ Sodium (Chloride) 250 mls @ 250 mls/hr IVPB Q24H [facility] Last Admin: 09/01/17 00:59 Dose: 250 mls/hr Insulin Glargine (Lantus(*)) 35 units SUBCUT BEDTIME [facility] Last Admin: 08/31/17 20:30 Dose: 35 units Insulin Human Lispro (Humalog*) 0 units SUBCUT AC [facility] PRN Reason: Protocol Last Admin: 09/01/17 18:06 Dose: 3 unit Isosorbide Mononitrate (Imdur Er Tab*) 60 mg PO DAILY [facility] Last Admin: 09/01/17 08:57 Dose: 60 mg Levothyroxine Sodium (Synthroid Tab*) 25 mcg PO 0800 [facility] Last Admin: 09/01/17 08:57 Dose: 25 mcg Lorazepam (Ativan Tab(*)) 0.25 mg PO Q8H PRN PRN Reason: ANXIETY Melatonin (Melatonin (Nf)) 3 mg PO BEDTIME [facility] Last Admin: 08/31/17 20:30 Dose: 3 mg Metoprolol Tartrate (Lopressor Tab*) 25 mg PO BID [facility] Last Admin: 09/01/17 08:56 Dose: 25 mg Mirtazapine (Remeron Tab*) 7.5 mg PO BEDTIME [facility] Last Admin: 08/31/17 20:30 Dose: 7.5 mg Mometasone Furoate/Formoterol Fumar (Dulera 200/5 Mdi*) 2 puff INH BID [facility] Last Admin: 09/01/17 08:45 Dose: 2 puff Morphine Sulfate (Morphine Vial*) 4 mg IV Q4H PRN PRN Reason: PAIN Last Admin: 09/01/17 12:35 Dose: 4 mg Oxycodone/Acetaminophen (Percocet 5/325 Tab*) 1 tab PO Q4H PRN PRN Reason: PAIN Oxycodone/Acetaminophen (Percocet 5/325 Tab*) 2 tab PO Q4H PRN PRN Reason: PAIN Last Admin: 08/31/17 18:15 Dose: 2 tab Prednisone (Deltasone Tab*) 60 mg PO DAILY [facility] Quetiapine Fumarate (Seroquel Tab*) 25 mg PO BEDTIME [facility] Last Admin: 08/31/17 20:30 Dose: 25 mg - Review of Systems Constitutional Symptoms: No: Weight Loss, Night Sweats, Unexplained Falls Dermatology: Normal: Yes Eyes: Positive: Normal Thyroid: Positive: Normal Pulmonary: Positive: Exercise Intolerance Cardiology: Positive: Proximal NocturnalDyspnea Gastroenterology: Positive: Normal Musculoskeletal: Positive: Joint Stiffness Neurology: Positive: Normal Psychiatry: Positive: Anxiety Allergic/Immunologic: Positive: Immunocompromise Home Medications: Home Medications Medication Instructions Recorded Confirmed Type Acetaminophen TAB* [Tylenol TAB*] 650 mg PO Q6H PRN 08/28/17 08/28/17 History Albuterol HFA INHALER* [Ventolin 2 puff INH Q6H PRN 08/28/17 08/28/17 History HFA Inhaler*] Aspirin 81 mg CHEW TAB* 81 mg PO DAILY 08/28/17 08/28/17 History Gabapentin CAP(*) [Neurontin 300 300 mg PO TID 08/28/17 08/28/17 History CAP(*)] Insulin GLARGINE(*) [Lantus(*)] 20 units SUBCUT BEDTIME 08/28/17 08/28/17 History Insulin REGULAR(*) 2 units SUBCUT AC 08/28/17 08/28/17 History Isosorbide Mononitrate ER TAB* 60 mg PO DAILY 08/28/17 08/28/17 History [Imdur ER TAB*] Levothyroxine TAB* [Synthroid 25 25 mcg PO 0800 08/28/17 08/28/17 History MCG TAB*] Magnesium Oxide [Mag-Oxide 400 mg PO BID 08/28/17 08/28/17 History Magnesium] Melatonin [Melatin] 3 mg PO BEDTIME 08/28/17 08/28/17 History Metoprolol Tartrate TAB* 25 mg PO BID 08/28/17 08/28/17 History [Lopressor TAB*] Mirtazapine TAB* [Remeron TAB*] 7.5 mg PO BEDTIME 08/28/17 08/28/17 History Nitroglycerin TAB 0.4 MG* 0.4 mg SL . NEEDED PRN 08/28/17 08/28/17 History QUEtiapine TAB* [Seroquel 25 MG 25 mg PO BEDTIME 08/28/17 08/28/17 History TAB*] Tocilizumab [Actemra] 162 mg SQ SEE INSTRUCTIONS 08/28/17 08/28/17 History Diltiazem CD CAP* [Cardizem CD 360 mg PO DAILY #30 cap.cd 09/01/17 Rx CAP*] Insulin GLARGINE(*) [Lantus(*)] 20 units SUBCUT BEDTIME #1 bottle 09/01/17 Rx Mometasone/Formoter 200/5 MDI* 2 puff INH BID #1 mdi 09/01/17 Rx [Dulera 200/5 MDI*] predniSONE TAB* [Deltasone TAB*] 10 mg PO DAILY #60 tab 09/01/17 Rx Allergies: Allergies Allergy/AdvReac Type Severity Reaction Status Date / Time Penicillins Allergy Hives Verified 08/28/17 18:41 Objective - Vital Signs Vital Signs: Vital Signs 08/31/17 08/31/17 08/31/17 18:15 18:30 18:32 Temperature 97.9 F 97.9 F Pulse Rate 82 84 Respiratory 13 9 24 Rate Blood Pressure 206/107 196/91 (mmHg) O2 Sat by Pulse 96 98 Oximetry 08/31/17 08/31/17 08/31/17 18:34 19:00 19:01 Temperature 97.9 F 97.9 F 97.9 F Pulse Rate 85 86 83 Respiratory 11 7 12 Rate Blood Pressure 209/100 173/98 (mmHg) O2 Sat by Pulse 99 96 98 Oximetry 08/31/17 08/31/17 08/31/17 19:30 20:00 20:01 Temperature 97.7 F 97.7 F 97.7 F Pulse Rate 78 79 81 Respiratory 15 16 29 Rate Blood Pressure 197/107 194/109 (mmHg) O2 Sat by Pulse 95 97 98 Oximetry 08/31/17 08/31/17 08/31/17 20:09 20:31 21:00 Temperature 97.7 F 97.7 F Pulse Rate 77 79 87 Respiratory 12 13 10 Rate Blood Pressure 169/97 (mmHg) O2 Sat by Pulse 98 95 96 Oximetry 08/31/17 08/31/17 08/31/17 21:02 21:03 21:30 Temperature 97.7 F 97.7 F 97.7 F Pulse Rate 85 88 81 Respiratory 17 20 19 Rate Blood Pressure 191/74 184/95 180/96 (mmHg) O2 Sat by Pulse 97 97 96 Oximetry 08/31/17 08/31/17 08/31/17 22:00 22:15 22:30 Temperature 97.5 F 97.5 F Pulse Rate 87 77 Respiratory 13 16 7 Rate Blood Pressure 162/93 (mmHg) O2 Sat by Pulse 94 92 Oximetry 08/31/17 08/31/17 08/31/17 23:00 23:30 23:39 Temperature 97.3 F 97.2 F 98 F Pulse Rate 74 73 Respiratory 4 5 Rate Blood Pressure 151/91 144/87 (mmHg) O2 Sat by Pulse 90 91 Oximetry 09/01/17 09/01/17 09/01/17 00:00 00:01 00:41 Temperature 96.8 F 97.0 F Pulse Rate 73 67 Respiratory 9 6 Rate Blood Pressure 175/89 (mmHg) O2 Sat by Pulse 97 94 94 Oximetry 09/01/17 09/01/17 09/01/17 00:55 03:44 07:32 Temperature 98.7 F 97.4 F 97.2 F Pulse Rate 73 72 74 Respiratory 22 16 12 Rate Blood Pressure 158/69 168/83 200/87 (mmHg) O2 Sat by Pulse 99 98 100 Oximetry 09/01/17 09/01/17 09/01/17 08:00 08:56 11:45 Temperature 97.6 F Pulse Rate 72 Respiratory 20 20 12 Rate Blood Pressure 208/91 (mmHg) O2 Sat by Pulse 100 100 Oximetry 09/01/17 09/01/17 09/01/17 12:35 14:02 15:05 Temperature 97.7 F Pulse Rate 64 Respiratory 16 20 16 Rate Blood Pressure 154/77 (mmHg) O2 Sat by Pulse 100 Oximetry 09/01/17 16:14 Temperature Pulse Rate 70 Respiratory Rate Blood Pressure 167/69 (mmHg) O2 Sat by Pulse 95 Oximetry - Intake and Output Intake and Output: Intake & Output 08/30/17 08/31/17 09/01/17 09/02/17 06:59 06:59 06:59 06:59 Intake Total 3793 1545 1461 205 Output Total 1342 1145 2128 550 Balance 4074 899 -576 -260 Weight 255 lb 11.779 oz 257 lb 0.944 oz Intake: IV Fluids 2463 35 61 NS (0.9%) 2463 35 calcium gluconate 61 IVPB 330 330 ABX - AZITHROMYCIN 275 270 ABX - CEFTRIAXONE 55 60 Oral 1000 1180 1400 205 Output: Urine 0 0 Verma 1342 1145 2128 550 Other: # Bowel Movements 0 0 ADLs: Meal Record Start: 08/29/17 00: 29 Freq: 09,13,18 Status: Inactive Protocol: Document 08/29/17 10:00 [id number] (Rec: 08/29/17 12:19 [id number] ICU-C11) Document 08/29/17 13:00 [id number] (Rec: 08/29/17 13:43 [id number] ICU-C11) Document 08/29/17 18:00 [id number] (Rec: 08/29/17 19:51 [id number] ICU-C22) Document 08/30/17 09:00 [id number] (Rec: 08/30/17 10:01 [id number] ICU-C10) Document 08/30/17 13:00 [id number] (Rec: 08/30/17 13:54 [id number] ICU-C18) Document 08/30/17 18:00 JPD1122 (Rec: 08/30/17 19:59 [id number] ICU-C15) Document 08/31/17 09:00 [id number] (Rec: 08/31/17 09:54 [id number] ICU-C15) Document 08/31/17 10:16 [id number] (Rec: 08/31/17 10:17 [id number] ICU-C18) Document 08/31/17 13:00 HNC1447 (Rec: 08/31/17 14:20 TZV0301 ICU-C15) Document 08/31/17 18:00 KOT0365 (Rec: 08/31/17 19:04 [id number] ICU-C15) ADLs: Meal Record Start: 09/01/17 00: 55 Freq: DAILY@0900,1400,1800 Status: Active Protocol: Created 09/01/17 00:55 [id number] (Rec: 09/01/17 00:55 [id number] TELE-C06) Document 09/01/17 09:00 CRP7491 (Rec: 09/01/17 15:03 JIO5389 TELE-C10) Document 09/01/17 14:00 RGE3213 (Rec: 09/01/17 15:04 YCI3753 TELE-C10) Document 09/01/17 18:00 AUY2264 (Rec: 09/01/17 18:03 [id number] [facility]-C05) Intake and Output Start: 08/29/17 00: 29 Freq: Q1HR Status: Inactive Protocol: Document 08/29/17 06:00 HGE6027 (Rec: 08/29/17 06:36 HIW9404 ICU-M18) Document 08/29/17 11:00 YUI5353 (Rec: 08/29/17 11:36 QBQ6709 ICU-C15) Document 08/29/17 14:41 QGQ1893 (Rec: 08/29/17 14:42 CUY3631 ICU-C11) Document 08/29/17 17:00 NFX3230 (Rec: 08/29/17 17:03 KPU5824 ICU-M18) Document 08/29/17 19:00 LVX4552 (Rec: 08/29/17 19:04 CLQ2308 ICU-C15) Document 08/29/17 20:12 ZMP1225 (Rec: 08/29/17 20:49 NRZ5736 ICU-C25) Document 08/29/17 21:04 AYQ4592 (Rec: 08/29/17 21:04 HZT7176 ICU-C25) Document 08/29/17 21:52 [id number] (Rec: 08/29/17 21:53 QWV4193 ICU-M20) Document 08/29/17 22:12 UHI0309 (Rec: 08/29/17 22:25 [id number] ICU-C25) Document 08/29/17 23:02 YFC2517 (Rec: 08/29/17 23:02 YEL1451 ICU-C25) Document 08/30/17 00:10 TRK1786 (Rec: 08/30/17 00:36 CPH3243 ICU-C25) Document 08/30/17 01:00 RIZ8504 (Rec: 08/30/17 01:15 LJA7575 ICU-C25) Document 08/30/17 01:59 [id number] (Rec: 08/30/17 01:59 EGI9781 ICU-C25) Document 08/30/17 03:31 ALQ0337 (Rec: 08/30/17 03:35 EBV8635 ICU-C25) Document 08/30/17 04:04 MZI4970 (Rec: 08/30/17 04:04 MWO6258 ICU-C25) Document 08/30/17 05:00 XWR3432 (Rec: 08/30/17 05:00 WZU7836 ICU-C25) Document 08/30/17 05:45 DKM8978 (Rec: 08/30/17 05:45 FWG0903 ICU-M20) Document 08/30/17 07:45 CDB7955 (Rec: 08/30/17 07:46 AGQ7353 ICU-C10) Document 08/30/17 07:59 KGQ6293 (Rec: 08/30/17 08:00 WDW1277 ICU-M18) Document 08/30/17 10:11 KVH1539 (Rec: 08/30/17 10:11 JDX6008 ICU-C10) Document 08/30/17 12:35 AXP2820 (Rec: 08/30/17 12:35 ROU5881 ICU-M26) Document 08/30/17 13:54 WMO9591 (Rec: 08/30/17 13:54 CEX2139 ICU-C10) Document 08/30/17 14:38 EAX1769 (Rec: 08/30/17 14:38 CRS7038 ICU-C10) Document 08/30/17 15:10 LOF4170 (Rec: 08/30/17 15:10 OPA5947 ICU-C10) Document 08/30/17 16:50 ZEL2197 (Rec: 08/30/17 16:50 SHW3442 ICU-C10) Document 08/30/17 17:05 DFW3431 (Rec: 08/30/17 17:05 [id number] ICU-C10) Document 08/30/17 19:00 AWT6830 (Rec: 08/30/17 19:59 ATI1796 ICU-C15) Document 08/30/17 19:59 VOT6837 (Rec: 08/30/17 19:59 EPW8822 ICU-C15) Document 08/30/17 21:00 BIE8863 (Rec: 08/30/17 22:12 ONV1824 ICU-C15) Document 08/30/17 23:58 ACM9430 (Rec: 08/30/17 23:58 PET6281 ICU-C15) Document 08/31/17 01:00 YUG9113 (Rec: 08/31/17 01:07 KYJ1724 ICU-C15) Document 08/31/17 02:00 CNB8210 (Rec: 08/31/17 02:16 EPU0567 ICU-C15) Document 08/31/17 04:00 SLS1141 (Rec: 08/31/17 04:23 OVR8732 ICU-C15) Document 08/31/17 13:03 UUO3469 (Rec: 08/31/17 13:04 PYM0916 ICU-C15) Document 08/31/17 14:30 RSD2914 (Rec: 08/31/17 14:30 [id number] ICU-C15) Document 08/31/17 15:21 JXK2169 (Rec: 08/31/17 15:21 SFV6924 ICU-C15) Document 08/31/17 16:12 FPF0343 (Rec: 08/31/17 16:12 RGG7031 ICU-C15) Document 08/31/17 19:03 FHK2729 (Rec: 08/31/17 19:03 HBN0322 ICU-C15) Document 08/31/17 20:00 KJQ6362 (Rec: 08/31/17 21:18 WQM4385 ICU-M18) Document 08/31/17 20:00 KUK2580 (Rec: 08/31/17 22:58 WGV3419 ICU-C16) Document 08/31/17 21:00 MPF4746 (Rec: 09/01/17 00:01 [id number] ICU-M18) Document 08/31/17 22:00 JEA3752 (Rec: 09/01/17 00:01 LCL9632 ICU-M18) Document 08/31/17 23:00 XFW5306 (Rec: 09/01/17 00:01 RHC8297 ICU-M18) Intake and Output Start: 09/01/17 00: 55 Freq: DAILY@0600,1400,2200 Status: Active Protocol: Created 09/01/17 00:55 RFH6030 (Rec: 09/01/17 00:55 KCR7764 TELE-C06) Document 09/01/17 06:00 FDQ7191 (Rec: 09/01/17 06:21 STN7332 TELE-C11) Document 09/01/17 14:00 OOA3550 (Rec: 09/01/17 15:04 OAW8511 TELE-C10) - Physical Exam General Physical Exam Comment: No acute distress Eye Exam: bilateral: PERRLA Ear Exam: bilateral ear: Normal Thyroid Function: Clinically Euthyroid Endocrine: Yes Central Obesity Lungs and Chest: Yes: Chest Expansion Full, Chest Expansion Symetrica, Percussion Note Resonant Heart Rate and Rhythm: Regular JVP: Not Elevated Wing Beat: Non Displaced Abdominal Exam: Yes: Soft - Rheumotological System Additional Musculoskeletal: Kyphosis - Neuro Psychiatric: Normal Speech: Normal Results - Results Lab Results: Laboratory Results - last 24 hr 09/01/17 09/01/17 09/01/17 04:48 04:48 07:21 WBC 20.5 H RBC 3.93 L Hgb 11.3 L Hct 35 L MCV 90 MCH 29 MCHC 32 RDW 18 H Plt Count 213 MPV 8.1 Neut % (Auto) 92.1 H Lymph % (Auto) 2.3 L Wheeler % (Auto) 5.2 Eos % (Auto) 0 Baso % (Auto) 0.4 Absolute Neuts (auto) 18.9 H Absolute Lymphs (auto) 0.5 L Absolute Monos (auto) 1.1 H Absolute Eos (auto) 0 Absolute Basos (auto) 0.1 Absolute Nucleated RBC 0 Nucleated RBC % 0 Sodium 140 Potassium 4.2 Chloride 106 Carbon Dioxide 25 Anion Gap 9 BUN 41 H Creatinine 1.94 H Est GFR ( Amer) 45.8 Est GFR (Non-Af Amer) 35.6 BUN/Creatinine Ratio 21.1 H Glucose 254 H POC Glucose (mg/dL) 220 H Calcium 8.8 09/01/17 09/01/17 11:43 17:05 WBC RBC Hgb Hct MCV MCH MCHC RDW Plt Count MPV Neut % (Auto) Lymph % (Auto) Wheeler % (Auto) Eos % (Auto) Baso % (Auto) Absolute Neuts (auto) Absolute Lymphs (auto) Absolute Monos (auto) Absolute Eos (auto) Absolute Basos (auto) Absolute Nucleated RBC Nucleated RBC % Sodium Potassium Chloride Carbon Dioxide Anion Gap BUN Creatinine Est GFR ( Amer) Est GFR (Non-Af Amer) BUN/Creatinine Ratio Glucose POC Glucose (mg/dL) 231 H 184 H Calcium Assessment - Problem List Assessment: Patient Problems Acute renal failure (Acute) Acute respiratory failure with hypoxia (Acute) Anasarca (Acute) COPD (chronic obstructive pulmonary disease) (Acute) DVT prophylaxis (Acute) Dementia (Acute) Full code status (Acute) Giant cell arteritis (Acute) HTN (hypertension) (Acute) Hyperkalemia (Acute) Hypothyroid (Acute) Type II diabetes mellitus (Acute) Plan: Giant Cell arteritis: overall seems stable. Once transitioned to oral steroids , taper to 10mg daily Prednisone
[2017-09-02] MEDS ORDERED: predniSONE TAB* 20 MG PO SCH (09:00)
--- NOTE | 2017-09-02 10:52 | DS ---
CC: Dr. Hicks * [facility] MEDICINE DISCHARGE SUMMARY: DATE OF ADMISSION: 08/28/17 DATE OF DISCHARGE: 09/01/17 ATTENDING PHYSICIAN: Dahiana Celestin MD * (dictation provided by Alka Feng NP ). PRIMARY DIAGNOSES: 1. Acute hypoxic respiratory failure. 2. Chronic obstructive pulmonary disease exacerbation. 3. Acute renal failure likely secondary to dehydration from diuretics and lisinopril. SECONDARY DIAGNOSES: 1. Insulin dependent type 2 diabetes. 2. Hypertension. 3. Hyperlipidemia. 4. Hypothyroidism. 5. Chronic obstructive pulmonary disease. 6. Giant cell arteritis. 7. Frontal lobe dementia. 8. Cervical degenerative disk disease. 9. Obstructive sleep apnea. 10. Gastroesophageal reflux disease. 11. Neuropathy. 12. Fibromyalgia. 13. Peripheral vascular disease. 14. Congestive heart failure. 15. Anasarca. PAST SURGICAL HISTORY: 1. History of cervical and lumbar spinal fusions. 2. Right lower extremity stent. 3. Appendectomy. 4. Carpal tunnel release. 5. Eustachian tube surgery. 6. Cholecystectomy. MEDICATIONS AT THE TIME OF DISCHARGE: 1. Insulin 2 units subcutaneously with meals. 2. Lantus 20 units subcutaneously at bedtime. 3. Discontinue Depakote. 4. Actemra 162 mg subcutaneously every other week. 5. Melatonin 3 mg at bedtime. 6. Magnesium oxide 400 mg p.o. b.i.d. 7. Seroquel 25 mg at bedtime. 8. Lopressor 25 mg p.o. b.i.d. 9. Aspirin 81 mg p.o. daily. 10. Ventolin 2 puffs inhaled q.4 hours p.r.n.. 11. Hold potassium chloride. 12. Nitroglycerin as needed. 13. Remeron 7.5 mg p.o. at bedtime. 14. Synthroid 25 mcg p.o. daily. 15. Imdur 60 mg p.o. daily. 16. Gabapentin 300 mg p.o. t.i.d. 17. Cardizem CD 360 mg p.o. daily (new increased dose). 18. Hold lisinopril. 19. Voltaren gel 1 application topically 4 times a day. 20. Hold Bumex. 21. Tylenol 650 mg p.o. q.6 hours as needed. 22. Prednisone 40 mg via taper. HOSPITAL COURSE: Mr. Lux is a 61-year-old male with a past medical history of giant cell arteritis, on chronic prednisone therapy with associated diffuse anasarca as well as COPD, diabetes, hypertension, hyperlipidemia, and frontal lobe dementia who presented to the hospital on 08/28/17 with concern for generalized pain and weakness of lower extremities. Please see the dictated H and P from Greg Ojeda NP for complete details. In brief, the patient had been admitted to the [facility] and released on 08/26/17, 2 days prior to admission after being treated for generalized anasarca with diuresis. The patient reported that the symptoms at that time were generalized pain that persisted despite diuresis and even after discharge. He presented to our emergency room when the pain was intolerable. His family notes that he seemed very rigid and had a shuffling gait as well as tremors. In the emergency room, Mr. Lux was found to have acute renal failure with a creatinine of 4.56 and a BUN of 22. Remainder of his labs showed a sodium of 138, his potassium was 4.6, and his lactic acid was 1.2. His CRP was 8.75. His chest x- ray showed no evidence for pneumonia or acute intrathoracic disease. He had an abdomen and pelvis CT because of his diffuse abdominal distention and anasarca, which showed no acute CT findings to suggest renal parenchymal disease on the basis of an atrophied left kidney and a radiodense right kidney. It was suspected that perhaps Mr. Lux had a component of CHF, which contributed to his anasarca and renal failure but he did have a transthoracic echocardiogram on 08/29/17, which showed an intact ejection fraction of 65% with no significant valvular disease. For his renal disease, he was seen in consultation by Dr. Antoine who suspected that he was intravascularly dry, though he was overloaded from a total fluid body weight perspective. He recommended the diuretics be held and that some hydration be given. With this, the patient's creatinine is near baseline today. From the records from the [facility], his last known creatinine there was 1.7. The day of discharge,his creatinine is 1.94 with a BUN of 41. This is with holding of Bumex and lisinopril. In addition to the renal failure, the patient was quite hypoxic on arrival and required intensive care unit care initially for Vapotherm. Again, his chest x- ray was clear but he was wheezing on examination and it was suspected that perhaps he had COPD exacerbation and treatment was started with high-dose Solu- Medrol and azithromycin as well as nebulizers as needed. We were concerned that the patient possibly had a pulmonary embolism and he was ultimately able to go in for a V/Q scan today that showed low risk with no clear evidence of pulmonary embolism. The delay in the V/Q scan was necessitated by the fact that the patient was unable to lie flat until today. With treatment for COPD exacerbation with Solu-Medrol and albuterol and azithromycin, the patient has had steady improvement in his hypoxia. Today, he has been off oxygen at rest and has had no hypoxia on room air. However, he continues to need 4 L of oxygen with mobility and this has been ordered to be provided for him at home. Mr. Lux did have tremor and has a history frontotemporal dementia and therefore, he was seen in consultation by Dr. Gupta from our neurology team. She recommended that Depakote be discontinued which we have done as she felt that this could contribute to his worsening tremor and parkinsonian type symptoms. She recommended that the patient continue to have close followup with Neurology regarding the diagnosis of frontotemporal dementia. Mr. Lux has total body anasarca in the setting of high dose prednisone use for approximately one year for giant cell arteritis. He is currently off prednisone but it has been suspected that the prednisone was what was causing the significant anasarca. I did check a CRP and ESR, both of which were normal. The patient was also seen in consultation by our finished goods stock clerk, Dr. Bosch, who agreed with the workup thus far and suggested that the patient's Solu-Medrol be titrated down to prednisone 10 mg p.o. daily until the patient can be followed up in the outpatient setting. He saw no evidence of any other acute rheumatological condition. Other labs drawn here included AMINATA, rheumatoid factor, cyclic citrullinated peptide, and [id number] DNA, all of which were negative. Dr. Bosch also recommended that the patient continue on his Actemra. During this hospitalization, we have had to hold Mr Lux's Bumex and lisinopril and with this he has had uncontrolled blood pressure, at times running as high as 200 systolically. For this reason, I have increased his diltiazem from 240 mg to 360 mg. He is also continuing on his isosorbide and metoprolol. My suspicion is that he will be able to resume Bumex and/or lisinopril soon as his creatinine is improving. I have asked that he have his BMP be checked on 09/05/17 and that he have really close followup with the [facility] and or the [facility] here at [facility] for monitoring of his kidney function, his blood pressure, and followup of his other chronic medical conditions. Mr. Lux is medically stable for discharge to home today now that he is no longer has oxygen requirement at rest. I have strongly encouraged him and his family to return to the emergency room should he have worsening shortness breath or other concerning symptoms due to his chronic fragile medical conditions. DISPOSITION: To home. DIET: Low-fat, low-salt, consistent carbohydrate. ACTIVITY: As tolerated. FOLLOWUP PLANS: 1. I have instructed the family that we do have [facility] available here at the [facility] and they could follow up here, but that we would need to find out if [facility] could be [facility] there and I have left a message with our team to that regard. 2. I have asked for a BMP on 09/05/17. 3. If the patient cannot follow up here, he should follow up closely at the [facility] TIME SPENT: Approximately 60 minutes were spent on the discharge of this patient, more than half the time was spent with the patient at the bedside reviewing the events leading up to and during this hospitalization, performing the physical examination, and reviewing my plan of care. ALKA FENG NP [id number]/[facility] #: [id number] PHONG
== END 2017-09-01 19:40 | disposition home or self-care (01) | DRG 140 ==
LOC: ED 18:39 → ICU 23:48 → MEDTELE 09-01 00:50
PROVIDERS: ADMIT Pediatrics; ATTEND Internal Medicine
DX: J44.1 Chronic obstructive pulmonary disease with (acute) exacerbation (principal); J96.01 Acute respiratory failure with hypoxia; N17.9 Acute kidney failure, unspecified; E24.9 Cushing's syndrome, unspecified; I50.32 Chronic diastolic (congestive) heart failure; G31.83 Neurocognitive disorder with Lewy bodies; F02.80 Dementia in other diseases classified elsewhere, unspecified severity, without behavioral disturbance, psychotic disturbance, mood disturbance, and anxiety; M79.7 Fibromyalgia; I11.0 Hypertensive heart disease with heart failure; E78.5 Hyperlipidemia, unspecified; E03.9 Hypothyroidism, unspecified; R60.1 Generalized edema; G47.33 Obstructive sleep apnea (adult) (pediatric); M50.30 Other cervical disc degeneration, unspecified cervical region; K21.9 Gastro-esophageal reflux disease without esophagitis; N26.1 Atrophy of kidney (terminal); G31.09 Other frontotemporal neurocognitive disorder; E11.40 Type 2 diabetes mellitus with diabetic neuropathy, unspecified; E11.51 Type 2 diabetes mellitus with diabetic peripheral angiopathy without gangrene; F17.210 Nicotine dependence, cigarettes, uncomplicated; R25.1 Tremor, unspecified; M31.6 Other giant cell arteritis; E86.0 Dehydration; Z98.1 Arthrodesis status; Z79.4 Long term (current) use of insulin; Z79.82 Long term (current) use of aspirin; Z88.0 Allergy status to penicillin; Z90.49 Acquired absence of other specified parts of digestive tract; Z82.49 Family history of ischemic heart disease and other diseases of the circulatory system; Z80.9 Family history of malignant neoplasm, unspecified; Z79.52 Long term (current) use of systemic steroids
CPT/HCPCS: 36415; 71046; 74176; 78582; 80048; 80053; 80164; 81003; 81015; 82533; 82550; 82570; 83036; 83605; 83735; 83880; 84100; 84132; 84156; 84300; 84443; 84484; 84550; 85025; 85610; 85652; 85730; 86038; 86140; 86200; 86225; 86431; 87040; 87086; 87502; 87641; 93005; 93306; 93970; 94640; 99285; A9270-GY; A9540; A9558; J0360; J0456; J0610; J0696; J1170; J1644; J2270; J2930

== ENCOUNTER 2017-09-03 21:12 | Inpatient (IN) | payer OTHER ==
[2017-09-03] MEDS ORDERED: Ondansetron INJ* 2 MG/ML VIAL IV ONE (21:39)
[2017-09-03] MEDS ORDERED: Nitroglycerin 2% OINT* 1 GM PAK TOPICAL ONE (21:39)
[2017-09-03] MEDS ORDERED: Aspirin 81 mg CHEW TAB* 81 MG TAB.CHEW PO ONE (21:39)
[2017-09-03] MEDS ORDERED: Furosemide IV* 10 MG/ML VIAL (40 MG) IV ONE (21:39)
[2017-09-03] MEDS ORDERED: Morphine INJ* 10 MG/ML 1 ML CARPUJECT IV ONE (21:39)
[2017-09-03] MEDS ORDERED: Ondansetron ODT TAB* 4 MG ONE (21:53)
[2017-09-03] MEDS ORDERED: Morphine VIAL* 4 MG/ML VIAL (1 ml vial) IV ONE ×2 (21:54→21:57)
[2017-09-03 21:56] LABS: Hematocrit 38 % (42-52); Hemoglobin 12.6 g/dl (14.0-18.0); Mean Corpuscular HGB Conc 33 g/dl (31-36); Mean Corpuscular Hemoglobin 29 pg (27-31); Mean Corpuscular Volume 89 fL (80-94); Mean Platelet Volume 7.8 um3 (7.4-10.4); Platelet Count 230 10^3/ul (150-450); Red Blood Count 4.28 10^6/ul (4.0-5.4); Red Cell Distribution Width 17 % (10.5-15); White Blood Count 9.2 10^3/ul (3.5-10.8)
[2017-09-03] MEDS ORDERED: Ondansetron ODT TAB* 4 MG PO ONE (21:57)
[2017-09-03 22:10] LABS: INR 0.89 (0.77-1.02)
[2017-09-03 22:14] LABS: EGFR Non-African American 40.4 (>60)
[2017-09-03 22:39] LABS: ABS Basophils 0 10^3/ul (0-0.2); ABS Neutrophils 7.3 10^3/ul (1.5-7.7); Monocytes % 7 % (0-7)
[2017-09-03] MEDS ORDERED: hydrALAZINE IV* 20 MG/ML VIAL IV SLOW PU ONE (23:23)
--- NOTE | 2017-09-04 00:39 | HP ---
H&P (Free Text) History and Physical: PCP: Dr Hicks of [place] Nephrology: Deirdre Antoine MD Neurology: Ryder Gupta MD Date/Time: 09/04/2017 0010 CC: SOB, headache HPI: Mr Lux is a 61YO male admitted to [facility] [place]/28-09/01/2017 with diagnoses of acute hypoxic respiratory failure, COPD exacerbation, & acute renal failure. He has the chronic diagnoses of insulin requiring DM2, HTN, HLD, hypothyroidism , giant cell arteritis, frontal lobe dementia, MAGNO, GERD, peripheral neuropathy , fibromyalgia, POAD, CHF, & anasarca. Since his discharge 2 days ago he has had increasing SOB which today had some nausea and sweated associated. He has also had a headache and B shoulder pain today. He denies chest pain, palpitations, light-headedness, F/C, emesis, cough, congestion, increased LE swelling, focal W/N/T, change in speech/swallow/vision, or other issues. PMedHx, PSurgHx, SocHx, &FamHx: reviewed & unchanged from H&P dated 08/28/2017 which has been copied at the end of this report. Ambulatory Orders Acetaminophen TAB* [Tylenol TAB*] 650 mg PO Q6H PRN 08/28/17 Albuterol HFA INHALER* [Ventolin HFA Inhaler*] 2 puff INH Q6H PRN 08/28/17 Aspirin 81 mg CHEW TAB* 81 mg PO DAILY 08/28/17 Gabapentin CAP(*) [Neurontin 300 CAP(*)] 300 mg PO TID 08/28/17 Insulin REGULAR(*) 2 units SUBCUT AC 08/28/17 Isosorbide Mononitrate ER TAB* [Imdur ER TAB*] 60 mg PO DAILY 08/28/17 Levothyroxine TAB* [Synthroid 25 MCG TAB*] 25 mcg PO 0800 08/28/17 Magnesium Oxide [Mag-Oxide Magnesium] 400 mg PO BID 08/28/17 Melatonin [Melatin] 3 mg PO BEDTIME 08/28/17 Metoprolol Tartrate TAB* [Lopressor TAB*] 25 mg PO BID 08/28/17 Mirtazapine TAB* [Remeron TAB*] 7.5 mg PO BEDTIME 05/21/18 Nitroglycerin TAB 0.4 MG* 0.4 mg SL . NEEDED PRN 08/28/17 QUEtiapine TAB* [Seroquel 25 MG TAB*] 25 mg PO BEDTIME 08/28/17 Tocilizumab [Actemra] 162 mg SQ SEE INSTRUCTIONS 08/28/17 Diltiazem CD CAP* [Cardizem CD CAP*] 360 mg PO DAILY #30 cap.cd 09/01/17 Insulin GLARGINE(*) [Lantus(*)] 20 units SUBCUT BEDTIME #1 bottle 09/01/17 Mometasone/Formoter 200/5 MDI* [Dulera 200/5 MDI*] 2 puff INH BID #1 mdi predniSONE TAB* [Deltasone TAB*] 10 mg PO DAILY #60 tab 09/01/17 Allergies Penicillins Allergy (Verified 08/28/17 18:41) Hives ROS: as above, otherwise reviewed and all were negative vitals: Vital Signs Temp 36.4 C 09/03/17 21:20 Pulse 75 09/03/17 22:22 Resp 10 09/03/17 22:22 BP 196/104 09/03/17 22:22 Pulse Ox 97 09/03/17 22:22 Intake & Output 09/03/17 09/03/17 09/04/17 11:59 23:59 11:59 Weight 108.862 kg Constitutional: NAD, normally developed, morbidly obese white male HEENM: atraumatic; sclera/conjunctiva: anicteric/clear; hearing: clinically intact; oropharynx: clear, mucosa moist Neck: soft tissue: non-tender, no nuchal rigidity; thyroid: normal Pulmonary: scant bibasilar cellophane crackles w/ scant end-expiratory wheeze, fair aeration, no accessory muscle use CV: RR/RR, normal S1S2, no carotid bruit, no appreciable jugular venous distention, 2+ B DP/PT, 2+ BLE edema Abdominal: soft, non-distended, non-tender, no rebound/guarding/rigidity, normoactive bowel sounds, no hepatosplenomegaly or masses, no costovertebral angle tenderness Musculoskeletal: general: grossly intact, mildly tender B anterior shins Integumental: normal appearance and texture of exposed skin Psychiatric orientation: AA&O to PPS, not T affect: frustrated mood: cooperative eye contact: fair to poor content: reliable responses: timely insight: fair Testing: Lab Results 09/03/17 09/03/17 09/03/17 Range/Units 21:47 21:47 21:47 WBC 9.2 (3.5-10.8) 10^3/ul RBC 4.28 (4.0-5.4) 10^6/ul Hgb 12.6 L (14.0-18.0) g/dl Hct 38 L (42-52) % MCV 89 (80-94) fL MCH 29 (27-31) pg MCHC 33 (31-36) g/dl RDW 17 H (10.5-15) % Plt Count 230 (150-450) 10^3/ul MPV 7.8 (7.4-10.4) um3 Neut % (Auto) Not Reportable Lymph % (Auto) Not Reportable [place] % (Auto) Not Reportable Eos % (Auto) Not Reportable Baso % (Auto) Not Reportable Absolute Neuts (auto) Not Reportable Absolute Lymphs (auto) Not Reportable Absolute Monos (auto) Not Reportable Absolute Eos (auto) Not Reportable Absolute Basos (auto) Not Reportable Absolute Nucleated RBC Not Reportable Immature Gran % 2 (0-9) % Neutrophils % 79 (38-83) % Lymphocytes % 10 L (25-47) % Reactive Lymphs % 1 (0-6) % Monocytes % 7 (0-7) % Eosinophils % 1 (0-6) % Basophils % 0 (0-2) % Metamyelocytes % 1 (0-2) % Myelocytes % 1 (0-1) % Nucleated RBC % Not Reportable Abs Neuts (Manual) 7.3 (1.5-7.7) 10^3/ul Abs Lymphs (Manual) 0.9 L (1.0-4.8) 10^3/ul Abs Monocytes (Manual) 0.6 (0-0.8) 10^3/ul Absolute Eos (Manual) 0.1 (0-0.6) 10^3/ul Abs Basophils (Manual) 0 (0-0.2) 10^3/ul Normal RBC Morphology Not Reportable Polychromasia 1+ INR (Anticoag Therapy) 0.89 (0.77-1.02) APTT 23.9 L (26.0-36.3) seconds Sodium 145 (139-145) mmol/L Potassium 3.4 L (3.5-5.0) mmol/L Chloride 107 (101-111) mmol/L Carbon Dioxide 31 (22-32) mmol/L Anion Gap 7 (2-11) mmol/L BUN 26 H (6-24) mg/dL Creatinine 1.74 H (0.67-1.17) mg/dL Est GFR ( Amer) 51.9 (>60) Est GFR (Non-Af Amer) 40.4 (>60) BUN/Creatinine Ratio 14.9 (8-20) Glucose 144 H (70-100) mg/dL Calcium 8.6 (8.6-10.3) mg/dL Magnesium 2.1 (1.9-2.7) mg/dL Total Bilirubin 0.30 (0.2-1.0) mg/dL AST 41 H (13-39) U/L ALT 70 H (7-52) U/L Alkaline Phosphatase 43 (34-104) U/L Troponin I 0.01 (<0.04) ng/mL B-Natriuretic Peptide ( - 100) pg/mL Total Protein 5.6 L (6.4-8.9) g/dL Albumin 3.6 (3.2-5.2) g/dL Globulin 2.0 (2-4) g/dL Albumin/Globulin Ratio 1.8 (1-3) 05//18 Range/Units 21:47 WBC (3.5-10.8) 10^3/ul RBC (4.0-5.4) 10^6/ul Hgb (14.0-18.0) g/dl Hct (42-52) % MCV (80-94) fL MCH (27-31) pg MCHC (31-36) g/dl RDW (10.5-15) % Plt Count (150-450) 10^3/ul MPV (7.4-10.4) um3 Neut % (Auto) Lymph % (Auto) [place] % (Auto) Eos % (Auto) Baso % (Auto) Absolute Neuts (auto) Absolute Lymphs (auto) Absolute Monos (auto) Absolute Eos (auto) Absolute Basos (auto) Absolute Nucleated RBC Immature Gran % (0-9) % Neutrophils % (38-83) % Lymphocytes % (25-47) % Reactive Lymphs % (0-6) % Monocytes % (0-7) % Eosinophils % (0-6) % Basophils % (0-2) % Metamyelocytes % (0-2) % Myelocytes % (0-1) % Nucleated RBC % Abs Neuts (Manual) (1.5-7.7) 10^3/ul Abs Lymphs (Manual) (1.0-4.8) 10^3/ul Abs Monocytes (Manual) (0-0.8) 10^3/ul Absolute Eos (Manual) (0-0.6) 10^3/ul Abs Basophils (Manual) (0-0.2) 10^3/ul Normal RBC Morphology Polychromasia INR (Anticoag Therapy) (0.77-1.02) APTT (26.0-36.3) seconds Sodium (139-145) mmol/L Potassium (3.5-5.0) mmol/L Chloride (101-111) mmol/L Carbon Dioxide (22-32) mmol/L Anion Gap (2-11) mmol/L BUN (6-24) mg/dL Creatinine (0.67-1.17) mg/dL Est GFR ( Amer) (>60) Est GFR (Non-Af Amer) (>60) BUN/Creatinine Ratio (8-20) Glucose (70-100) mg/dL Calcium (8.6-10.3) mg/dL Magnesium (1.9-2.7) mg/dL Total Bilirubin (0.2-1.0) mg/dL AST (13-39) U/L ALT (7-52) U/L Alkaline Phosphatase (34-104) U/L Troponin I (<0.04) ng/mL B-Natriuretic Peptide 164 H ( - 100) pg/mL Total Protein (6.4-8.9) g/dL Albumin (3.2-5.2) g/dL Globulin (2-4) g/dL Albumin/Globulin Ratio (1-3) ECG, personally reviewed: NSR rate 62, no ischemia CXR, personally reviewed: no acute process ECHO (08/29/2017): Conclusions: Mild concentric left ventricular hypertrophy is observed. The left ventricle appears hyperdynamic. The estimated ejection fraction is greater than 65%. No significant valvular disease. There is a trace of mitral regurgitation. There is trace tricuspid regurgitation. There is a trace pulmonic regurgitation. No reports of prior studies are offered for comparison. Impression: 61M HX DM2, HTN, HLD, hypothyroidism, giant cell arteritis, frontal lobe dementia, MAGNO, GERD, peripheral neuropathy, fibromyalgia, POAD, CHF, & anasarca admitted to [facility] 08/28-09/01 for acute hypoxic respiratory failure, COPD exacerbation, & acute renal failure returns with SOB with evidence of COPD & CHF exacerbations DIAGNOSIS & PLAN Primary COPD exacerbation : albuterol, mometasone/formoterol/tiotropium/IV methylprednisolone : incentive spirometry : supplemental oxygen : supportive care CHF exacerbation : furosemide diuresis : daily weights : strict I&Os : low sodium diet Secondary insulin requiring DM2 : A2c 7.0 08/2017 : insulin carb ratio diet : basal/bolus/correctional insulin : insulin carb ratio diet HTN : review meds once reconciled HLD : review meds once reconciled hypothyroidism : review meds once reconciled giant cell arteritis : review meds once reconciled frontal lobe dementia : review meds once reconciled MAGNO : review meds once reconciled GERD : review meds once reconciled peripheral neuropathy : review meds once reconciled fibromyalgia : review meds once reconciled POAD : review meds once reconciled CHF : review meds once reconciled Admission Rational: inpatient for CHF & COPD exacerbation in patient at significant risk for morbidity/mortality; inappropriate for outpatient setting DVTp: SCDs & heparin SQ Code Status: full HCP: History & Physical Patient: DARIELA LUX /Age: 08 1955 61 Medical Record#: [id number] Admission Date: 08/28/17 Provider: 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 Hicks; Dr. Antoine; Dr. Gupta * HISTORY AND PHYSICAL: DATE OF ADMISSION: 08/28/17 PRIMARY CARE PROVIDER: Dr. Hicks from [place]. ATTENDING PHYSICIAN WHILE IN THE HOSPITAL: Jolene Hardwick MD* (report being dictated by Greg Ojeda NP) CONSULTING NEUROLOGIST: Dr. Gupta. CONSULTING SENIOR INFORMATION SECURITY ENGINEER: Dr. Antoine. CHIEF COMPLAINT: 1. Generalized pain. 2. Weakness to the lower extremities. HISTORY OF PRESENT ILLNESS: Mr. Lux is a 61-year-old male patient with multiple medical problems. He has a history of diabetes, history of hypertension, hyperlipidemia, hypothyroidism, COPD, history of giant cell arteritis, history of frontal lobe dementia, history of cervical degenerative joint disease, MAGNO, he has GERD, neuropathy, fibromyalgia, PVD, and history of CHF. He is coming into the ED today. He has had several recurrent episodes of having discomfort dating for almost a year now where they get worse and better having pain in the shoulders in the lower extremities. He is just aching all over, he becomes flushed. He has had recurrent episodes. He has been seen mostly at the [facility]. He was actually just at the [facility] and released on 08/26/17. He was there for a total of 3 days. He since being discharged though he has noted that the pain was getting worse. He has just aching all over particularly both his elbows, both his lower extremities. He has noted he was having swelling all over. He was noted to have swelling previously over at the [facility] when he was there from 08/24/17 to 08/26/17. They actually diuresed him aggressively. They sent him out on Bumex 2 mg b.i.d. He states that despite the increased diuretics, the swelling was not getting any better. He is having worsening pain. He states that he has not had any fevers with the exception of here he has been having a cough now, he is noted to be wheezing. He denied any abdominal discomfort and no nausea, vomiting , diarrhea, or chest pain. He denies any orthopnea. The family was concerned because of the pain was unbearable, again particularly all over. He does also admit to the pain worse first thing in the morning. He says first in the morning, he does feel kind of rigid. At times, he describes his gait was a shuffling gait. He has also been having tremors as well. He says that no one particularly joint hurts him. He says all of his joints are hurting right now. He feels stiff. He came into the ED today. It was ultimately noted that he had acute renal failure. Because of this worsening discomfort, pain of unclear etiology, we were asked to evaluate in for admission. PAST MEDICAL HISTORY: Significant for: 1. Diabetes. 2. Hypertension. 3. Hyperlipidemia. 4. Hypothyroidism. 5. COPD. 6. Giant cell arteritis. 7. Frontal lobe dementia. 8. Cervical degenerative disk disease. 9. MAGNO. 10. GERD. 11. Neuropathy. 12. Fibromyalgia. 13. PVD. 14. CHF. PAST SURGICAL HISTORY: 1. He has had cervical and lumbar spinal fusions. 2. He has had right lower extremity stent. 3. Appendectomy. 4. Carpal tunnel. 5. Eustachian tubes. 6. Cholecystectomy. HOME MEDICATIONS: According to the list that he provided include: 1. Insulin regular 2 units subcu a.c. 2. Lantus 20 units subcu at bedtime. 3. Depakote 500 mg p.o. at bedtime. 4. Actemra 162 mg subcu every other week. 5. He is also on melatonin 3 mg at bedtime. 6. Magnesium oxide 400 mg p.o. b.i.d. 7. Seroquel 25 mg at bedtime. 8. Lopressor 25 mg p.o. b.i.d. 9. Aspirin 81 mg a day. 10. Ventolin 2 puffs inhaled every 6 hours as needed. 11. Potassium 30 mEq p.o. b.i.d. 12. Nitro 0.4 mg sublingual q.5 minutes p.r.n. chest pain as needed. 13. Remeron 7.5 mg p.o. at bedtime. 14. Synthroid 25 mcg p.o. daily. 15. Imdur 60 mg p.o. a day. 16. Gabapentin 300 mg p.o. t.i.d. 17. Cardizem CD 240 mg p.o. daily. 18. Lisinopril 20 mg daily. 19. Voltaren gel 1 application topically 4 times a day. 20. Bumex 2 mg p.o. b.i.d. 21. Tylenol 650 mg every 6 hours as needed. ALLERGIES TO MEDICATIONS: Include PENICILLIN. FAMILY HISTORY: His mother had a history of cancer. Father had a history of [place] , but he did have a brother with Leesa Gehrig's disease. SOCIAL HISTORY: He is still smoking half a pack a day. He does not drink alcohol. Surrogate decision maker is his . REVIEW OF SYSTEMS: There is no documented fever here. He denied any significant weight change. There is no double vision. He denies having any ear discharge. There is no rhinorrhea. No sore throat. No thyroid enlargement. He does admit to having the cough. He denies having any shortness of breath. He denied any abdominal pain. There was no nausea, no vomiting. There is no dysuria, no frequency. There was no seizure, no loss of consciousness. No pruritus and no skin ulcerations. Review of 14 systems completed, all others negative. PHYSICAL EXAMINATION GENERAL: At this time, Mr. Lux is a 61-year-old male patient. He is chronically ill appearing. He is sitting in the ED stretcher. He appears to be in mild amount of respiratory distress. VITAL SIGNS: Blood pressure 133/91 with a pulse of 97, respirations of 16, his O2 sat 95%, it was on 2 L. When he came in, he was hypoxic at 89%, it dip down to 77% when he took his oxygen off. HEENT: Head is atraumatic, normocephalic. Eyes: EOMs are intact. Sclerae are anicteric and not pale. Throat: Oral mucosa appears to be moist. No oropharyngeal erythema. NECK: Supple. LUNGS: He had wheezing bilaterally throughout. He had equal diaphragmatic expansion. HEART: Sounds S1, S2. Regular rate and rhythm. No murmurs, rubs, or gallops. ABDOMEN: Soft, flat, it was distended. Bowel sounds were present. EXTREMITIES: Pulses were 2+ throughout. He can move his extremities, but any type of movement causes significant amount of pain, which limited his range of motion. He does have +2 pitting edema on the lower extremities in the pedal area. NEUROLOGICAL: He is awake, he is alert, he is oriented to place and self, confused at times. Courseware Developer were equal. Tongue is midline. He had no gross obvious focal deficits. SKIN: Intact. He did appear to be flushed. DIAGNOSTIC STUDIES/LAB DATA: His labs today revealing a WBC of 10.3, RBC of 4.43, hemoglobin of 13.2, hematocrit of 40, and the platelet count of 205. He had an INR of 0.89, PTT at 27.5. His sodium was 140, potassium of 4.6, chloride of 99, bicarb 30, BUN was 22, his creatinine was 4.56, previous creatinine was 1.4 according to the discharge paperwork. Glucose 99, lactate 1.2, calcium 9.1, total bili 0.2, AST 36, ALT 40, alk phos . CK is pending. Troponin 0.00. CRP was 8.75, BNP is 31, albumin of 4.1. Valproic acid was negative. He did have a chest x-ray obtained today, which showed no evidence of pneumonia, no evidence for acute intrathoracic disease. He did have an EKG obtained today, no previous for comparison unfortunately, but it does show a normal sinus rhythm with no ST elevations or T-wave inversions. He did have flattened T-waves in lead III and aVF. Old medical records were reviewed. ASSESSMENT AND PLAN: Mr. Lux is a 61-year-old male patient with a complex medical history coming into the ER today with complaint of aching all over, not feeling well, low grade fever noted. In addition to this, found to be in acute renal failure. He will be admitted under inpatient status for: 1. Chronic obstructive pulmonary disease exacerbation. I am concerned he does have a little bit of work of breathing when I examined him. I had my attending examine him and we felt that he would benefit from high flow O2, so I in place him in ICU, on Vapotherm with aggressive steroid therapy, nebs, Dulera, and antibiotics. I am going to put him on azithromycin and Rocephin for now. Should he spike fever or decompensate further, we could consider giving him vanco and Zosyn. There is no evidence of pneumonia on x-ray. It does appear to be exacerbation of chronic obstructive pulmonary disease, so I do not think he needs the broad-spectrum antibiotics at this point. 2. Arthralgias, again etiology of this is unclear. He had a CT imaging of the cervical spine just done at the [place]. He also had MRI 6 months ago of the thoracic, lumbar, and cervical spine. The CT spine had no acute pathology. He did have arthritis noted. I will refer you to the report in the chart for the details. He also had a CTA of the head and neck due to the bilateral lower extremity weakness and Neurology evaluated. I do not have the Neurology consult. We will try to get this when he was just at the [facility] a few days ago. I am concerned that he might have connective tissue disorder, possible autoimmune disorder, but it is unclear. I do think we need to get in touch with Rheumatology and we will touch base them tomorrow for further workup. I did send off the ESR. I also sent off an AMINATA double stranded. AMINATA also sent off for rheumatoid factor for the time being and uric acid level as well. We also did check a lactic acid. We will continue him on steroids, again it is unclear etiology. 3. Anasarca, again may have been contributing autoimmune disorder causing this or also possibly nephrotic syndrome. I am waiting on a urine to help us with this. I am not going to diurese him given the acute renal failure. 4. Acute renal failure, again etiology is unclear, but certainly he was on lisinopril. He was on Bumex. He was taking Voltaren gel and also could be other syndromes going on, we bladder scanned him, he was 177, he did urinate this morning and I am going to go ahead and again get a FENa, check a urine protein, and check his mag and phos and we have a call placed out to Nephrology. He does need emergent dialysis at this point, but I am hopeful with stopping the offending agent, hydration, creatinine does improve, but again we will need Nephrology involved. 5. Diabetes, I have put him on a lispro sliding scale. 6. Hypertension, continue his meds as prescribed. I am switching his Cardizem to immediate release. 7. Abdominal distention, again he is not really tender in his abdomen at all, but I did get a CT abdomen just to make sure there was not any obstructive uropathy at this point and we will continue to follow this. 8. Hyperlipidemia, the statin was held recently due to the arthralgias. 9. Fibromyalgia, we will continue meds as prescribed. 10. Dementia, continue supportive care. 11. Tremors, again I am concerned with his history, rigidity, early onset dementia, he may have possibly Parkinson. I did place a consult to Neurology. 12. Degenerative disk disease, continue with meds as prescribed. 13. Obstructive sleep apnea, did order a CPAP. 14. History of giant cell arteritis. I checked an ESR, CRP, his CRP is 8, ESR is pending. I am trying to get the biopsy reports from his primary, that biopsy was done about a year ago. I will put him on high dose steroids for the chronic obstructive pulmonary disease exacerbation, we should treat this in the setting of a possible infection given his fever. I am holding off on his Actemra. 15. Gastroesophageal reflux disease. Continue meds as prescribed. 16. Neuropathy. Continue his current medical regimen, he is on gabapentin. 17. History of peripheral vascular disease, he is on aspirin, we will continue this for now. 18. History of congestive heart failure, I do not believe he is in failure now , his BNP is only 31. 19. DVT prophylaxis. He will be placed on heparin subcu as he is high risk. 20. Code status: He wishes to be a full code. 21. Fluid, electrolytes, nutrition. He can have a consistent carb diet. TIME SPENT: Time spent on the admission was 70 minutes; greater than half the time was spent [id number] with the patient obtaining my history and physical, other half the time was spent going over the plan of care with the patient and implementing plan of care. I did discuss the plan of care with my attending, Dr. Hardwick. I also had Dr. Hardwick evaluate the patient as well given his complexity. She was in agreement with the plan. We will continue to follow up him closely. GREG OJEDA NP [id number]/[facility] #: [id number] Greg Ojeda NP Dictated Date/Time: 08/28/17 3152 Transcribed Date/Time 08/29/17 2985 Copy to: CC: Greg Ojeda NP
[2017-09-04] MEDS ORDERED: CMCS:Melatonin (NF) 3 MG TAB PO PRN (00:42)
[2017-09-04] MEDS ORDERED: methylPREDNISolone 125 MG* 2 ML VIAL IV ONE (00:42)
[2017-09-04] MEDS ORDERED: Nicotine Inhaler* 10 MG AMP INH PRN (00:42)
[2017-09-04] MEDS ORDERED: Ondansetron ODT TAB* 4 MG PO PRN (00:42)
[2017-09-04] MEDS ORDERED: Acetaminophen TAB* 325 MG PO PRN (00:42)
[2017-09-04] MEDS ORDERED: Mouth Piece, Nicotine* 1 EACH CARTRIDGE INH PRN (00:42)
[2017-09-04] MEDS ORDERED: Albuterol 2.5 MG/3 ML NEB.SOL* (0.083%) INH PRN (00:42)
[2017-09-04] MEDS: Albuterol 2.5 MG/3 ML NEB.SOL* (0.083%) INH SCH ×4 (02:06→20:18)
[2017-09-04] MEDS: hydrALAZINE IV* 20 MG/ML VIAL IV PRN ×2 (02:49→06:53)
--- NOTE | 2017-09-04 03:01 | ED ---
[place] Julia, scribed for Frank Burnette MD on 09/03/17 at 2140 . Shortness of Breath - HPI Summary HPI Summary: This patient is a 61 year old M BIBA to [facility] accompanied by his with a chief complaint of SOB, CP, and headache beginning this evening. Patient was hospitalized last week, and was discharged on 4L of oxygen nasal cannula. Pain is 8/10 in severity. PMHx of COPD and CHF. - History of Current Complaint Chief Complaint: EDShortnessOfBreath Time Seen by Provider: 09/03/17 21:35 Hx Obtained From: Patient Onset/Duration: Lasting Hours Timing: Constant Dyspnea At: Rest Alleviating Factors: Nothing Related History: Obesity, Similar Episode - Allergy/Home Medications Allergies/Adverse Reactions: Allergies Allergy/AdvReac Type Severity Reaction Status Date / Time Penicillins Allergy Hives Verified 08/28/17 18:41 PMH/Surg Hx/FS Hx/Imm Hx Endocrine/Hematology History: Reports: Hx Diabetes, Other Endocrine/ Hematological Disorders - Hx arteritis, Hx [place] Cardiovascular History: Reports: Hx Congestive Heart Failure Respiratory History: Reports: Hx Chronic Obstructive Pulmonary Disease (COPD) History: Reports: Hx Acute Renal Failure Musculoskeletal History: Reports: Hx Back Problems, Hx Fibromyalgia Sensory History: Reports: Hx Hearing Aid - Left Denies: Hx Contacts or Glasses Opthamlomology History: Denies: Hx Contacts or Glasses Neurological History: Reports: Other Neuro Impairments/Disorders - Oscar body dementia Comment Only: Hx Dementia - Mann Body Dementia Infectious Disease History: No Infectious Disease History: Denies: Traveled Outside the [place] in Last 30 Days - Family History Known Family History: Positive: Unknown - due to dementia - Social History Alcohol Use: None Substance Use Type: Reports: None Smoking Status (MU): Light Every Day Tobacco Smoker Review of Systems Positive: Shortness Of Breath Positive: Headache All Other Systems Reviewed And Are Negative: Yes Physical Exam - Summary Physical Exam Summary: VITAL SIGNS: Reviewed. GENERAL: Patient is a morbidly obese male who is lying comfortable in the stretcher. Patient is not in any acute respiratory distress. HEAD AND FACE: No signs of trauma. No ecchymosis, hematomas or skull depressions. No sinus tenderness. EYES: PERRLA, EOMI x 2, No injected conjunctiva, no nystagmus. EARS: Hearing grossly intact. Ear canals and tympanic membranes are within normal limits. MOUTH: Oropharynx within normal limits. NECK: Supple, trachea is midline, no adenopathy, no JVD, no carotid bruit, no c- spine tenderness, neck with full ROM. CHEST: Symmetric, no tenderness at palpation LUNGS: Clear to auscultation bilaterally. Decreased breath sounds bilaterally CVS: Regular rate and rhythm, S1 and S2 present, no murmurs or gallops appreciated. ABDOMEN: Soft, non-tender. Abdominal distention. No rebound no guarding, and no masses palpated. Bowel sounds are normal. EXTREMITIES: FROM in all major joints, no cyanosis or clubbing. Bilateral lower extremity edema NEURO: Alert and oriented x 3. No acute neurological deficits. Speech is normal and follows commands. SKIN: Dry and warm Triage Information Reviewed: Yes Vital Signs On Initial Exam: Initial Vitals Temp Pulse Resp BP Pulse Ox 97.6 F 72 16 209/100 97 09/03/17 21:20 09/03/17 21:20 09/03/17 21:20 09/03/17 21:20 09/03/17 21:20 Vital Signs Reviewed: Yes Diagnostics - Vital Signs Vital Signs Temp Pulse Resp BP Pulse Ox 09/03/17 21:22 69 9 209/100 97 09/03/17 21:20 97.6 F 72 16 209/100 97 - Laboratory Lab Results: Lab Results 09/03/17 09/03/17 09/03/17 Range/Units 21:47 21:47 21:47 WBC 9.2 (3.5-10.8) 10^3/ul RBC 4.28 (4.0-5.4) 10^6/ul Hgb 12.6 L (14.0-18.0) g/dl Hct 38 L (42-52) % MCV 89 (80-94) fL MCH 29 (27-31) pg MCHC 33 (31-36) g/dl RDW 17 H (10.5-15) % Plt Count 230 (150-450) 10^3/ul MPV 7.8 (7.4-10.4) um3 Neut % (Auto) Not Reportable Lymph % (Auto) Not Reportable [place] % (Auto) Not Reportable Eos % (Auto) Not Reportable Baso % (Auto) Not Reportable Absolute Neuts (auto) Not Reportable Absolute Lymphs (auto) Not Reportable Absolute Monos (auto) Not Reportable Absolute Eos (auto) Not Reportable Absolute Basos (auto) Not Reportable Absolute Nucleated RBC Not Reportable Immature Gran % 2 (0-9) % Neutrophils % 79 (38-83) % Lymphocytes % 10 L (25-47) % Reactive Lymphs % 1 (0-6) % Monocytes % 7 (0-7) % Eosinophils % 1 (0-6) % Basophils % 0 (0-2) % Metamyelocytes % 1 (0-2) % Myelocytes % 1 (0-1) % Nucleated RBC % Not Reportable Abs Neuts (Manual) 7.3 (1.5-7.7) 10^3/ul Abs Lymphs (Manual) 0.9 L (1.0-4.8) 10^3/ul Abs Monocytes (Manual) 0.6 (0-0.8) 10^3/ul Absolute Eos (Manual) 0.1 (0-0.6) 10^3/ul Abs Basophils (Manual) 0 (0-0.2) 10^3/ul Normal RBC Morphology Not Reportable Polychromasia 1+ INR (Anticoag Therapy) 0.89 (0.77-1.02) APTT 23.9 L (26.0-36.3) seconds Sodium 145 (139-145) mmol/L Potassium 3.4 L (3.5-5.0) mmol/L Chloride 107 (101-111) mmol/L Carbon Dioxide 31 (22-32) mmol/L Anion Gap 7 (2-11) mmol/L BUN 26 H (6-24) mg/dL Creatinine 1.74 H (0.67-1.17) mg/dL Est GFR ( Amer) 51.9 (>60) Est GFR (Non-Af Amer) 40.4 (>60) BUN/Creatinine Ratio 14.9 (8-20) Glucose 144 H (70-100) mg/dL Calcium 8.6 (8.6-10.3) mg/dL Magnesium 2.1 (1.9-2.7) mg/dL Total Bilirubin 0.30 (0.2-1.0) mg/dL AST 41 H (13-39) U/L ALT 70 H (7-52) U/L Alkaline Phosphatase 43 (34-104) U/L Troponin I 0.01 (<0.04) ng/mL B-Natriuretic Peptide ( - 100) pg/mL Total Protein 5.6 L (6.4-8.9) g/dL Albumin 3.6 (3.2-5.2) g/dL Globulin 2.0 (2-4) g/dL Albumin/Globulin Ratio 1.8 (1-3) 05//18 Range/Units 21:47 WBC (3.5-10.8) 10^3/ul RBC (4.0-5.4) 10^6/ul Hgb (14.0-18.0) g/dl Hct (42-52) % MCV (80-94) fL MCH (27-31) pg MCHC (31-36) g/dl RDW (10.5-15) % Plt Count (150-450) 10^3/ul MPV (7.4-10.4) um3 Neut % (Auto) Lymph % (Auto) [place] % (Auto) Eos % (Auto) Baso % (Auto) Absolute Neuts (auto) Absolute Lymphs (auto) Absolute Monos (auto) Absolute Eos (auto) Absolute Basos (auto) Absolute Nucleated RBC Immature Gran % (0-9) % Neutrophils % (38-83) % Lymphocytes % (25-47) % Reactive Lymphs % (0-6) % Monocytes % (0-7) % Eosinophils % (0-6) % Basophils % (0-2) % Metamyelocytes % (0-2) % Myelocytes % (0-1) % Nucleated RBC % Abs Neuts (Manual) (1.5-7.7) 10^3/ul Abs Lymphs (Manual) (1.0-4.8) 10^3/ul Abs Monocytes (Manual) (0-0.8) 10^3/ul Absolute Eos (Manual) (0-0.6) 10^3/ul Abs Basophils (Manual) (0-0.2) 10^3/ul Normal RBC Morphology Polychromasia INR (Anticoag Therapy) (0.77-1.02) APTT (26.0-36.3) seconds Sodium (139-145) mmol/L Potassium (3.5-5.0) mmol/L Chloride (101-111) mmol/L Carbon Dioxide (22-32) mmol/L Anion Gap (2-11) mmol/L BUN (6-24) mg/dL Creatinine (0.67-1.17) mg/dL Est GFR ( Amer) (>60) Est GFR (Non-Af Amer) (>60) BUN/Creatinine Ratio (8-20) Glucose (70-100) mg/dL Calcium (8.6-10.3) mg/dL Magnesium (1.9-2.7) mg/dL Total Bilirubin (0.2-1.0) mg/dL AST (13-39) U/L ALT (7-52) U/L Alkaline Phosphatase (34-104) U/L Troponin I (<0.04) ng/mL B-Natriuretic Peptide 164 H ( - 100) pg/mL Total Protein (6.4-8.9) g/dL Albumin (3.2-5.2) g/dL Globulin (2-4) g/dL Albumin/Globulin Ratio (1-3) Result Diagrams: 09/03/17 21:47 09/03/17 21:47 Lab Statement: Any lab studies that have been ordered have been reviewed, and results considered in the medical decision making process. - Radiology CXR Radiology Interpretation Completed By: ED Physician - Cariomegaly with interstital fluid consistent with CHF. - EKG 2215 Cardiac Rate: NL EKG Rhythm: Sinus Rhythm - 69 BPM EKG Interpretation: non specific T wave changes Course/Dx - Course Course Of Treatment: 61 year old M BIBA to [facility] accompanied by his with a chief complaint of SOB, CP, and headache beginning this evening. PMHx of CHF and COPD. CXR reveals cardiomegaly and interstital fluid consistent with CHF. EKG reveal non-specific T wave changes. Patient is given Zofran, Nitro, Morphine, Solu-Medrol, Lasix, and ASA. Lab work is obtained. Patient and informed of results. Patient is admitted to Dr. Johnson. Patient is agreeable with this plan. - Diagnoses Provider Diagnoses: Hypertension, Chest pain, CHF (congestive heart failure) - Physician Notifications Discussed Care of Patient With: Aldo Johnson - hospitalist Time Discussed With Above Provider: 23:32 Instructed by Provider To: Admit As Inpatient Discharge - Sign-Out/Discharge Documenting (check all that apply): Discharge/Admit/Transfer - admit - Discharge Plan Condition: Fair Disposition: ADMITTED TO [facility] - Billing Disposition and Condition Condition: FAIR Disposition[place] [facility] [place] The documentation as recorded by the Ramon antonio Julia accurately reflects the service I personally performed and the decisions made by , Frank Burnette MD.
[2017-09-04] MEDS: Omeprazole CAP* 20 MG PO SCH (05:15)
[2017-09-04 05:18] LABS: Hematocrit 39 % (42-52); Hemoglobin 13.1 g/dl (14.0-18.0); Mean Corpuscular HGB Conc 33 g/dl (31-36); Mean Corpuscular Hemoglobin 29 pg (27-31); Mean Corpuscular Volume 88 fL (80-94); Mean Platelet Volume 7.9 um3 (7.4-10.4); Platelet Count 231 10^3/ul (150-450); Red Blood Count 4.46 10^6/ul (4.0-5.4); Red Cell Distribution Width 17 % (10.5-15); White Blood Count 12.6 10^3/ul (3.5-10.8)
[2017-09-04 05:37] LABS: EGFR Non-African American 41.2 (>60)
--- NOTE | 2017-09-04 07:35 | RAD ---
HISTORY: Shortness of breath COMPARISONS: September 01, 2017 VIEWS: 1: frontal portable view of the chest at 9:50 PM FINDINGS: LINES AND TUBES: None. CARDIOMEDIASTINAL SILHOUETTE: The cardiomediastinal silhouette is normal for portable technique. PLEURA: The costophrenic angles are sharp. No pleural abnormalities are noted. LUNG PARENCHYMA: The lungs are clear. ABDOMEN: The upper abdomen is clear. There is no subphrenic gas. BONES AND SOFT TISSUES: The patient is status post anterior cervical fusion. IMPRESSION: NO ACTIVE CARDIOPULMONARY DISEASE.
[2017-09-04] MEDS: Mometasone/Formoter 200/5 MDI INH SCH ×2 (07:38→20:31)
[2017-09-04] MEDS: Tiotropium CAP.INH* CAP.INH/18 MCG (USE ORDER SET !) INH SCH (07:38)
[2017-09-04] MEDS: Gabapentin CAP(*) 300 MG PO SCH ×3 (08:09→21:01)
[2017-09-04] MEDS: Metoprolol Tartrate TAB* 25 MG PO SCH ×2 (08:10→20:57)
[2017-09-04] MEDS: Docusate CAP* 100 MG PO SCH ×2 (08:10→20:58)
[2017-09-04] MEDS: Levothyroxine TAB* 25 MCG TAB PO SCH (08:10)
[2017-09-04] MEDS: Aspirin 81 mg CHEW TAB* 81 MG TAB.CHEW PO SCH (08:10)
[2017-09-04] MEDS: Diltiazem CD CAP* 180 MG PO SCH (08:10)
[2017-09-04] MEDS: Isosorbide Mononitrate ER TAB* 60 MG PO SCH (08:10)
[2017-09-04] MEDS: guaiFENesin ER TAB 600 MG PO SCH ×2 (08:10→21:00)
[2017-09-04] MEDS: Furosemide IV* 10 MG/ML VIAL (40 MG) IV SCH ×2 (08:13→13:15)
[2017-09-04] MEDS ORDERED: ALPRAZolam TAB* 0.25 MG PO PRN (08:22)
[2017-09-04] MEDS ORDERED: Mometasone/Formoter 200/5 MDI INH SCH (09:00)
[2017-09-04] MEDS ORDERED: Spiriva Inhaler DEVICE* 1 EACH DEVICE INH ONE (09:00)
[2017-09-04] MEDS: methylPREDNISolone SOD 40 MG* 1 ML VIAL IV SCH ×2 (09:22→17:41)
[2017-09-04] MEDS: Insulin LISPRO* 1 UNITS UNIT SUBCUT SCH ×7 (09:25→21:03)
--- NOTE | 2017-09-04 18:07 | PN ---
Subjective Date of Service: 09/04/17 Interval History: Mr Lux reports that he is actually feeling much better than on arrival. He denies chest pain, SOB, nausea, or abdominal pain. He feels that his generalized edema continues to improve. He does note that he was outside while his sons were mowing all day the day after discharge. It was quite humid and he was surrounded by grass clippings. He agrees that this could have worsened his shortness of breath. In addition, he notes that he forgot to take any of his medications since discharge. Objective Active Medications: Acetaminophen (Tylenol Tab*) 650 mg PO Q6H PRN Albuterol (Ventolin 2.5 Mg/3 Ml Neb.Kristen*) 2.5 mg INH Q2H PRN Albuterol (Ventolin 2.5 Mg/3 Ml Neb.Kristen*) 2.5 mg INH [id number] AWAKE GEO Alprazolam (Xanax Tab*) 0.25 mg PO Q8H PRN Aspirin (Aspirin 81 Mg Chew Tab*) 81 mg PO DAILY [facility] Device (Nicotine Mouth Piece*) 1 each INH .USE WITH NICOTROL PRN Diltiazem HCl (Cardizem Cd Cap*) 360 mg PO DAILY GEO Docusate Sodium (Colace Cap*) 200 mg PO BID GEO Furosemide (Lasix Iv*) 40 mg IV 0800,1200 GEO Gabapentin (Neurontin Cap(*)) 300 mg PO TID GEO Guaifenesin (Mucinex*) 1,200 mg PO BID GEO Heparin Sodium (Porcine) (Heparin Vial(*)) 5,000 units SUBCUT Q8HR GEO Hydralazine HCl (Apresoline Iv*) 10 mg IV Q4H PRN Insulin Glargine (Lantus(*)) 26 units 0.24 units/kg (26 units) SUBCUT 2100 GEO Insulin Human Lispro (Humalog*) 0 units SUBCUT AC GEO Insulin Human Lispro (Humalog*) 0 units SUBCUT ACHS GEO Isosorbide Mononitrate (Imdur Er Tab*) 60 mg PO DAILY [facility] Levothyroxine Sodium (Synthroid Tab*) 25 mcg PO 0800 GEO Melatonin (Melatonin (Nf)) 3 mg PO BEDTIME GEO Methylprednisolone Sodium Succinate (Solu-Medrol 40 Mg) 40 mg IV Q8H GEO Metoprolol Tartrate (Lopressor Tab*) 25 mg PO BID GEO Mirtazapine (Remeron Tab*) 7.5 mg PO BEDTIME GEO Mometasone Furoate/Formoterol Fumar (Dulera 200/5 Mdi*) 2 puff INH BID GEO Nicotine (Nicotine Inhaler*) 10 mg INH Q2H PRN Omeprazole (Prilosec Cap*) 20 mg PO DAILY@0600 GEO Ondansetron HCl (Zofran Odt Tab*) 4 mg PO Q6H PRN Quetiapine Fumarate (Seroquel Tab*) 25 mg PO BEDTIME GEO Tiotropium [place] (Spiriva Cap.Inh*) 1 cap INH DAILY GEO Vital Signs: Temp Pulse Resp BP Pulse Ox 98.3 F 72 18 155/62 99 09/04/17 15:34 09/04/17 15:34 09/04/17 15:34 09/04/17 15:34 09/04/17 15:34 Oxygen Devices in Use Now: Nasal Cannula Appearance: Male sitting up in chair with at bedside in NAD Eyes: No Scleral Icterus Ears/Nose/Mouth/Throat: Mucous Membranes Moist Neck: Trachea Midline Respiratory: Symmetrical Chest Expansion and Respiratory Effort, - - Minimal scattered wheeze bilterally, good aeration Cardiovascular: NL Sounds; No Murmurs; No JVD, - - generalized edema, improved since last admission Abdominal: - - Distention improved since last admission, no tenderness, normal BS Extremities: - - Generalized edema Skin: No Rash or Ulcers Neurological: Alert and Oriented x 3, NL Muscle Strength and Tone Nutrition: Taking PO's Result Diagrams: 09/04/17 04:51 09/04/17 04:51 Additional Lab and Data: . Assess/Plan/Problems-Billing Assessment: Mr. Pena is a 61 yo male just discharged two days ago after being treated for a COPD exacerbation and acute renal failure secondary to diuretics who has a PMH of COPD, giant cell arteritis (on and off prednisone), anasarca thought to be due to steroids, and frontotemporal dementia and now returns after missing all of his medications since discharge with concern for SOB. - Patient Problems (1) SOB (shortness of breath) Comment: - Resolved - Suspect secondary to humidity and exposure to allergens (grass clippings) as well as missing all home meds. - Monitor. (2) Anasarca Comment: - Resolving, thus far has been attributed to chronic prednisone use. - Albumin normal. - Patient given IV lasix on admission. Plan to resume diuresis now with oral meds (had been held since last admission due to ARF). Patient states that bumex doesn't work will start furosemide. Patient will need close monitoring of kidney function outpatient. (3) COPD (chronic obstructive pulmonary disease) Comment: - Minimal wheezing on exam, much improved from last admission. Patient denies SOB. - Plan to switch back from solumedrol to prednisone taper, should be tapered down to 10mg daily until follow up with PCP/rheumatology. (4) Giant cell arteritis Comment: - Has been on high dose prednisone outpatient but [facility]. - ESR and CRP normal. - Rheumatology consult appreciated from last admission, patient should be titrated down to prednisone 10mg and actemra should be continued. (5) HTN (hypertension) Comment: - BP up to 200 yesterday morning but patient does endorse missing all home meds since discharge. - Continue diltiazem, isosorbide, metoprolol. Resuming low dose lasix given recent hx of ARF. (6) Type II diabetes mellitus Comment: - BGs slightly elevated, likely elevated due to solumedrol. HgbA1c 7.0. - Continue home lantus, continue lispro SSI and CC coverage for meals (7) Dementia Comment: - Appreciate neurology consult from last admission. Symptoms consistent with frontotemporal or lewy body dementia. Will need outpatient follow up. - Continue seroquel. (8) Hypothyroid Comment: - TSH in acceptable range. Continue synthroid at current dose. (9) DVT prophylaxis Comment: - SQ heparin (10) Full code status Comment: Status and Disposition: Inpatient. Anticipate discharge to home when medically stable.
[2017-09-04] MEDS ORDERED: Mirtazapine TAB* 15 MG PO SCH (21:00)
[2017-09-04] MEDS ORDERED: CMCS:Melatonin (NF) 3 MG TAB PO SCH (21:00)
[2017-09-04] MEDS ORDERED: Insulin GLARGINE(*) 1 UNITS UNIT SUBCUT SCH (21:00)
[2017-09-04] MEDS ORDERED: QUEtiapine TAB* 25 MG PO SCH (21:00)
[2017-09-04] MEDS: Heparin VIAL(*) 5000 UNITS/ML VIAL (FIVE THOUSAND) SUBCUT SCH (21:02)
[2017-09-05] MEDS: Albuterol 2.5 MG/3 ML NEB.SOL* (0.083%) INH SCH ×2 (00:36→07:52)
[2017-09-05] MEDS: methylPREDNISolone SOD 40 MG* 1 ML VIAL IV SCH (01:48)
[2017-09-05] MEDS: Omeprazole CAP* 20 MG PO SCH (05:19)
[2017-09-05] MEDS: Heparin VIAL(*) 5000 UNITS/ML VIAL (FIVE THOUSAND) SUBCUT SCH ×2 (05:21→12:57)
[2017-09-05] MEDS: Levothyroxine TAB* 25 MCG TAB PO SCH (07:41)
[2017-09-05] MEDS: Tiotropium CAP.INH* CAP.INH/18 MCG (USE ORDER SET !) INH SCH (07:51)
[2017-09-05] MEDS: Mometasone/Formoter 200/5 MDI INH SCH (07:52)
[2017-09-05] MEDS ORDERED: Furosemide TAB* 40 MG PO SCH (09:00)
[2017-09-05] MEDS ORDERED: predniSONE TAB* 20 MG PO SCH (09:00)
[2017-09-05] MEDS: Docusate CAP* 100 MG PO SCH (09:10)
[2017-09-05] MEDS: Insulin LISPRO* 1 UNITS UNIT SUBCUT SCH ×4 (09:10→12:57)
[2017-09-05] MEDS: Aspirin 81 mg CHEW TAB* 81 MG TAB.CHEW PO SCH (09:10)
[2017-09-05] MEDS: Gabapentin CAP(*) 300 MG PO SCH ×2 (09:11→12:56)
[2017-09-05] MEDS: Isosorbide Mononitrate ER TAB* 60 MG PO SCH (09:11)
[2017-09-05] MEDS: guaiFENesin ER TAB 600 MG PO SCH (09:11)
[2017-09-05] MEDS: Metoprolol Tartrate TAB* 25 MG PO SCH (09:11)
[2017-09-05] MEDS: Diltiazem CD CAP* 180 MG PO SCH (09:11)
[2017-09-05 09:17] LABS: ABS Basophils 0 10^3/ul (0-0.2); ABS Eosinophils 0 10^3/ul (0-0.6); ABS Lymphocytes 0.5 10^3/ul (1.0-4.8); ABS Monocytes 0.4 10^3/ul (0-0.8); ABS Neutrophils 16.1 10^3/ul (1.5-7.7); ABS Nucleated RBC 0 10^3/ul; Eosinophil % 0 % (0-6); Hematocrit 39 % (42-52); Hemoglobin 12.7 g/dl (14.0-18.0); Lymphocyte % 2.8 % (25-47); Mean Corpuscular HGB Conc 33 g/dl (31-36); Mean Corpuscular Hemoglobin 29 pg (27-31); Mean Corpuscular Volume 88 fL (80-94); Mean Platelet Volume 8.1 um3 (7.4-10.4); Nucleated Red Blood Cells % 0; Platelet Count 245 10^3/ul (150-450); Red Blood Count 4.37 10^6/ul (4.0-5.4); Red Cell Distribution Width 18 % (10.5-15)
[2017-09-05 09:38] LABS: EGFR Non-African American 41.5 (>60)
[2017-09-05] MEDS ORDERED: Albuterol HFA INHALER* 8 gm MDI INH PRN (12:49)
--- NOTE | 2017-09-05 13:53 | PN ---
Subjective Date of Service: 09/05/17 Interval History: Patient seen and examined at bedside. Denies fever, chills, shortness of breath , chest discomfort, N/V/D. Tele: Sinus rhythm, rate 60's Family History: Unchanged from Admission Social History: Unchanged from Admission Past Medical History: Unchanged from Admission Objective Active Medications: Acetaminophen (Tylenol Tab*) 650 mg PO Q6H PRN Reason: FEVER/PAIN Albuterol (Ventolin 2.5 Mg/3 Ml Neb.Kristen*) 2.5 mg INH Q2H PRN Reason: SOB/ WHEEZING Albuterol (Ventolin Hfa Inhaler*) 2 puff INH Q4H PRN Reason: SOB/WHEEZING Alprazolam (Xanax Tab*) 0.25 mg PO Q8H PRN Reason: ANXIETY Aspirin (Aspirin 81 Mg Chew Tab*) 81 mg PO DAILY GEO Device (Nicotine Mouth Piece*) 1 each INH .USE WITH NICOTROL PRN Reason: CRAVING Diltiazem HCl (Cardizem Cd Cap*) 360 mg PO DAILY GEO Docusate Sodium (Colace Cap*) 200 mg PO BID GEO Furosemide (Lasix Tab*) 40 mg PO DAILY GEO Gabapentin (Neurontin Cap(*)) 300 mg PO TID GEO Guaifenesin (Mucinex*) 1,200 mg PO BID GEO Heparin Sodium (Porcine) (Heparin Vial(*)) 5,000 units SUBCUT Q8HR GEO Hydralazine HCl (Apresoline Iv*) 10 mg IV Q4H PRN Reason: Systolic >170 Insulin Glargine (Lantus(*)) 26 units 0.24 units/kg (26 units) SUBCUT 2100 GEO Insulin Human Lispro (Humalog*) 0 units SUBCUT AC GEO Insulin Human Lispro (Humalog*) 0 units SUBCUT ACHS GEO Isosorbide Mononitrate (Imdur Er Tab*) 60 mg PO DAILY GEO Levothyroxine Sodium (Synthroid Tab*) 25 mcg PO 0800 GEO Melatonin (Melatonin (Nf)) 3 mg PO BEDTIME GEO Metoprolol Tartrate (Lopressor Tab*) 25 mg PO BID GEO Mirtazapine (Remeron Tab*) 7.5 mg PO BEDTIME GEO Mometasone Furoate/Formoterol Fumar (Dulera 200/5 Mdi*) 2 puff INH BID GEO Nicotine (Nicotine Inhaler*) 10 mg INH Q2H PRN Reason: CRAVING Omeprazole (Prilosec Cap*) 20 mg PO DAILY@0600 [facility] Ondansetron HCl (Zofran Odt Tab*) 4 mg PO Q6H PRN Reason: n/v Prednisone (Deltasone Tab*) 40 mg PO DAILY [facility] Quetiapine Fumarate (Seroquel Tab*) 25 mg PO BEDTIME [facility] Tiotropium [place] (Spiriva Cap.Inh*) 1 cap INH DAILY [facility] Vital Signs - 8 hr 09/05/17 09/05/17 09/05/17 07:23 07:51 07:54 Temperature 97.8 F Pulse Rate 66 66 Respiratory 20 20 12 Rate Blood Pressure 141/53 (mmHg) O2 Sat by Pulse 93 99 Oximetry 09/05/17 09/05/17 09/05/17 08:03 09:11 12:56 Temperature Pulse Rate Respiratory 20 18 Rate Blood Pressure (mmHg) O2 Sat by Pulse 97 Oximetry Oxygen Devices in Use Now: Nasal Cannula - 4L Appearance: NAD, sitting up in a chair Ears/Nose/Mouth/Throat: Mucous Membranes Moist Respiratory: Symmetrical Chest Expansion and Respiratory Effort, Clear to Auscultation Cardiovascular: NL Sounds; No Murmurs; No JVD, RRR Abdominal: NL Sounds; No Tenderness; No Distention Extremities: No Edema Skin: No Rash or Ulcers Neurological: Alert and Oriented x 3, NL Muscle Strength and Tone Lines/Tubes/Other Access: Clean, Dry and Intact Peripheral IV - site benign Nutrition: Taking PO's Result Diagrams: 09/05/17 08:42 09/05/17 08:42 Additional Lab and Data: . Assess/Plan/Problems-Billing Assessment: Mr. Pena is a 61 yo male just discharged on 08/02 after being treated for a COPD exacerbation and acute renal failure secondary to diuretics who has a PMH of COPD, giant cell arteritis (on and off prednisone), anasarca thought to be due to steroids, and frontotemporal dementia and now returns after missing all of his medications since discharge with concern for SOB. - Patient Problems (1) SOB (shortness of breath) Code(s): R06.02 - SHORTNESS OF BREATH SNOMED Code(s): 383303764 Comment: - Resolved - Suspect secondary to humidity and exposure to allergens (grass clippings) as well as missing all home meds (2) Anasarca Code(s): R60.1 - GENERALIZED EDEMA SNOMED Code(s): 964148227 Comment: - Resolving, thus far has been attributed to chronic prednisone use. - Albumin normal. - Patient given IV lasix on admission. Resumed diuresis with oral meds (had been held since last admission due to ARF). - Patient states that bumex doesn't work and was restart on furosemide. Patient will need close monitoring of kidney function outpatient. (3) Giant cell arteritis Code(s): M31.6 - OTHER GIANT CELL ARTERITIS SNOMED Code(s): 315814288 Comment: - Has been on high dose prednisone outpatient but was [facility]. - ESR and CRP normal. - Rheumatology consult appreciated from last admission, patient should be titrated down to prednisone 10mg and actemra should be continued. (4) HTN (hypertension) Code(s): I10 - ESSENTIAL (PRIMARY) HYPERTENSION SNOMED Code(s): 23806585 Comment: - SBP 130-150's, except SBP up to 200 yesterday morning - Patient had not been taking home medications - Continue diltiazem, isosorbide, metoprolol and low dose lasix given recent hx of ARF. (5) COPD (chronic obstructive pulmonary disease) Code(s): J44.9 - CHRONIC OBSTRUCTIVE PULMONARY DISEASE, UNSPECIFIED SNOMED Code(s): 34520475 Comment: - Minimal wheezing on exam, much improved from last admission. Patient denies SOB. - Continu prednisone taper, should be tapered down to 10mg daily until follow up with PCP/rheumatology. (6) Dementia Code(s): F03.90 - UNSPECIFIED DEMENTIA WITHOUT BEHAVIORAL DISTURBANCE SNOMED Code(s): 01526889 Comment: - Appreciate neurology consult from last admission. Symptoms consistent with frontotemporal or lewy body dementia. Will need outpatient follow up. - Continue seroquel. (7) Hypothyroid Code(s): E03.9 - HYPOTHYROIDISM, UNSPECIFIED SNOMED Code(s): 73652917 Comment: - TSH in acceptable range. - Continue synthroid at current dose. (8) Type II diabetes mellitus Current Visit: No Status: Acute Comment: - Glucose 190-270's, slightly elevated suspect due to steroids. - HgbA1c 7.0. - Continue home lantus, continue lispro SSI and CC coverage for meals (9) DVT prophylaxis Code(s): NIX6950 - SNOMED Code(s): 641668012 Comment: - SQ heparin (10) Full code status Code(s): Z78.9 - OTHER SPECIFIED HEALTH STATUS SNOMED Code(s): 610444044 Status and Disposition: Inpatient. Anticipate discharge to home when medically stable.
[2017-09-05 15:34] VITALS: BP 138/59
--- NOTE | 2017-09-06 18:26 | DS ---
CC: Garo Hicks [employer]PUTER [employer] SOFTWARE ENGINEER at the [facility]. * DISCHARGE SUMMARY: DATE OF ADMISSION: 09/04/17 DATE OF DISCHARGE: 09/05/17 ATTENDING PHYSICIAN: Dr. Renzo Gonsalez * (dictated by Celina Pastor NP). PRIMARY CARE PROVIDER: Garo Hicks NP at [facility]. PRIMARY DIAGNOSIS: 1. COPD exacerbation 2. Acute on chronic CHF exacerbation 3. Anasarca, improving SECONDARY DIAGNOSIS: 1. Diabetes mellitus 2. Hypertension 3. Hyperlipidemia 4. Hypothyroidism 5. Giant cell arteritis 6. Frontal lobe dementia 7. Obstructive sleep apnea 8. GERD 9. Peripheral neuropathy 10. Congestive heart failure 11. Fibromyalgia STUDIES WHILE IN THE HOSPITAL: Chest x-ray on 09/03/17. Radiologist's, impression: No active cardiopulmonary disease. DISCHARGE MEDICATIONS: New home medications: 1. Furosemide 40 mg oral daily. 2. Mucinex 1200 mg oral twice daily. 3. Colace 200 mg oral twice daily. 4. Spiriva 1 capsule inhalation daily. 5. Prednisone taper 10 mg tablets take 40 mg daily for 2 days, 30 mg oral daily for 3 days, 20 mg oral daily for 3 days, and 10 mg oral daily and then follow directions of primary care provider. Continue home medications: 1. Nitroglycerin 0.4 mg sublingual as needed for chest pain. 2. Aspirin 81 mg oral daily. 3. Remeron 7.5 mg oral daily at bedtime. 4. Metoprolol tartrate 25 mg oral twice daily. 5. Levothyroxine 25 mcg oral daily. 6. Isosorbide mononitrate 60 mg oral daily. 7. Gabapentin 300 mg oral 3 times daily. 8. Albuterol HFA inhaler 2 puffs inhalation every 6 hours as needed for shortness of breath. 9. Acetaminophen 650 mg oral every 6 hours as needed for pain. 10. Seroquel 25 mg oral daily at bedtime. 11. Melatonin 3 mg oral daily at bedtime as needed for sleep. 12. Magnesium oxide 400 mg oral twice daily. 13. Actemra 162 mg subcu every other week for rheumatoid arthritis. 14. Regular insulin 2 units subcutaneous before meals. 15. Diltiazem CD 360 mg oral daily. 16. Dulera 200\\5 mg MDI 2 puffs inhalation twice daily. Change medications: Lantus insulin increased from 20 units to 26 units subcutaneous at bedtime. HISTORY OF PRESENT ILLNESS\\HOSPITAL COURSE: Mr. Lux is a 61-year-old male with past medical history significant for diabetes mellitus, hypertension, hyperlipidemia, hypothyroidism, giant cell arteritis, frontal lobe dementia, obstructive sleep apnea, GERD, peripheral neuropathy, congestive heart failure, fibromyalgia and anasarca, who was previously admitted from August 28 to September 01 with a diagnosis of acute hypoxic respiratory failure, COPD exacerbation, and acute renal failure. In the 2 days after his discharge he had had increased shortness of breath with nausea and associated diaphoresis. The patient was having a headache and bilateral shoulder pain. He reports leaving the hospital and not taking his medications. Additionally, he was sitting outside in the hot weather and was "helping his son mow", although he states that he was just sitting outside. Due to his symptoms, he presented to the emergency room for further evaluation. While in the emergency room patient had a chest x-ray showing no acute findings. He had an EKG without signs of ischemia. He had labs that were essentially unremarkable. Hospitalist was asked to evaluate the patient for admission. While in the hospital, the patient was treated for COPD exacerbation and placed back on his inhalers. He was placed on a steroid taper. He also felt he had a CHF exacerbation. He was resumed on his furosemide that he had previously been taken off of due to an acute kidney injury. The patient's glucoses were slightly elevated; it was suspected to be secondary to his steroids. His hemoglobin A1c was 7. His anasarca was felt to be improving and secondary to his chronic prednisone use. He received IV Lasix on admission and then was resumed on furosemide as the patient stated that he did not feel Bumex was working for him. Previously, the patient been seen in consultation with Rheumatology, felt that he should be tapered down to his prednisone to 10 mg and continued on his Actemra. The patient states that his breathing was back to his baseline. He was feeling ready for discharge today. Mr. Lux is stable for discharge today. Vital signs are as follows; temperature 98.0, heart rate 55, respiratory rate 16 , O2 sat 100% on 4 L via nasal cannula, blood pressure 130/59. DISCHARGE PLAN: Mr. Lux will be discharged to home. Activity as tolerated. In regards to his COPD exacerbation, he will be continued on prednisone taper taking 40 mg daily for 2 days, 30 mg daily for 3 days, 20 mg daily for 3 days then back to 10 mg daily. He was also resumed back on his inhalers. In regards to his CHF exacerbation he was resumed on furosemide. For his increased glucoses his Lantus was increased from 20 to 26 units daily. The patient was encouraged to stay inside and in the air conditioning on hot and humid days and to avoid being outside while people were mowing. He should be seen in followup by his primary care provider Garo Hicks NP. Garo Hicks 's office will call the patient in the morning with a followup appointment as our computers are down at this time, they are unable to make a followup appointment. The patient has been asked to monitor his weights daily and to call Garo Hicks's office if he gains more than 2 to 3 pounds in a 24 hour period, his medications can be adjusted. While on diuretics he will need to have close renal function monitoring. He has been asked to recheck a BMP on 07/26. He has been asked to return to the emergency room for any chest pain, shortness of breath. This is a summarized report of a complex medical history and hospital stay. For further details, please see the entire medical record. TIME SPENT: Time for this discharge was approximately 50 minutes, greater than half of that was spent with the patient discussing on discharge plans and instructions. CONDITION ON DISCHARGE: Improved. Reviewed by EMILE DHILLON 09/13/17 [id number]/[facility] #: [id number] PHONG
== END 2017-09-05 16:33 | disposition home or self-care (01) | DRG 140 ==
LOC: ED 21:12 → MEDTELE 09-04 00:41
PROVIDERS: ADMIT Hospitalist; ATTEND Student in an Organized Health Care Education/Training Program
DX: J44.1 Chronic obstructive pulmonary disease with (acute) exacerbation (principal); E11.42 Type 2 diabetes mellitus with diabetic polyneuropathy; M31.6 Other giant cell arteritis; I11.0 Hypertensive heart disease with heart failure; I50.9 Heart failure, unspecified; G31.09 Other frontotemporal neurocognitive disorder; F02.80 Dementia in other diseases classified elsewhere, unspecified severity, without behavioral disturbance, psychotic disturbance, mood disturbance, and anxiety; G47.33 Obstructive sleep apnea (adult) (pediatric); K21.9 Gastro-esophageal reflux disease without esophagitis; M79.7 Fibromyalgia; E78.5 Hyperlipidemia, unspecified; R60.1 Generalized edema; E03.9 Hypothyroidism, unspecified; E66.01 Morbid (severe) obesity due to excess calories; Z79.1 Long term (current) use of non-steroidal anti-inflammatories (NSAID); Z79.4 Long term (current) use of insulin; Z79.82 Long term (current) use of aspirin; Z79.52 Long term (current) use of systemic steroids; Z79.899 Other long term (current) drug therapy; Z88.0 Allergy status to penicillin; Z68.38 Body mass index [BMI] 38.0-38.9, adult
CPT/HCPCS: 36415; 71045; 80048; 80053; 83735; 83880; 84484; 85025; 85610; 85730; 93005; 94640; 99284; 99406; A9270-GY; J0360; J1644; J1940; J2270; J2920; J2930; J7512

== ENCOUNTER 2017-10-18 22:24 | Emergency (ER) | payer SELFPAY ==
--- NOTE | 2017-10-18 23:04 | ED ---
Respiratory - HPI Summary HPI Summary: patient to ED with family c/o worsening pain in neck . has been sob for a few days sleeping with hob elevated (his usual). denies chest pain, fever - History of Current Complaint Chief Complaint: EDNeckComplaint Stated Complaint: SOB/GENERAL ILLNESS Time Seen by Provider: 10/18/17 23:05 Hx Obtained From: Patient, Family/Manager Student Services, Medical Records Onset/Duration: Gradual Onset, Lasting Days - 3, Still Present Current Severity: Severe Pain Intensity: 10 Character: Dyspnea on Exertion, Orthopnea Sputum Amount: None Associated Signs and Symptoms: SOB, Edema, Calf Pain/Swelling, Edema, Dyspnea - Allergy/Home Medications Allergies/Adverse Reactions: Allergies Allergy/AdvReac Type Severity Reaction Status Date / Time Penicillins Allergy Hives Verified 10/18/17 22:25 PMH/Surg Hx/FS Hx/Imm Hx Endocrine/Hematology History: Reports: Hx Diabetes, Hx Thyroid Disease, Other Endocrine/Hematological Disorders - Hx arteritis, Hx Lala's Cardiovascular History: Reports: Hx Congestive Heart Failure, Hx Hypertension Respiratory History: Reports: Hx Chronic Obstructive Pulmonary Disease (COPD) History: Reports: Hx Acute Renal Failure Musculoskeletal History: Reports: Hx Back Problems, Hx Fibromyalgia Sensory History: Reports: Hx Hearing Aid - Left Denies: Hx Contacts or Glasses Opthamlomology History: Denies: Hx Contacts or Glasses Neurological History: Reports: Other Neuro Impairments/Disorders - Oscar body dementia Comment Only: Hx Dementia - Mann Body Dementia - Surgical History Surgery Procedure, Year, and Place: Appendectomy. Cervical and lumbar spinal fusions. Right lower extremity stent. Carpal tunnel. Eustachian tubes; Cholecystectomy Infectious Disease History: No Infectious Disease History: Denies: Traveled Outside the [place] in Last 30 Days - Family History Known Family History: Positive: Unknown - due to dementia - Social History Occupation: Disabled Lives: With Family Alcohol Use: None Substance Use Type: Reports: None Smoking Status (MU): Light Every Day Tobacco Smoker Review of Systems Constitutional: Negative Eyes: Negative ENT: Negative Cardiovascular: Negative Positive: Shortness Of Breath Gastrointestinal: Negative Genitourinary: Negative Positive: Arthralgia Skin: Negative Positive: Headache Psychological: Normal All Other Systems Reviewed And Are Negative: Yes Physical Exam Triage Information Reviewed: Yes Vital Signs On Initial Exam: Initial Vitals Temp Pulse Resp BP Pulse Ox 98 F 74 18 199/92 96 10/18/17 22:25 10/18/17 22:25 10/18/17 22:25 10/18/17 22:25 10/18/17 22:25 Vital Signs Reviewed: Yes Appearance: Positive: Ill-Appearing, Pain Distress, Obese Skin: Positive: Dry, Scaly Skin/Lesions Head/Face: Positive: Normal Head/Face Inspection Eyes: Positive: Normal, EOMI, HOMERO ENT: Positive: Normal ENT inspection, Hearing grossly normal, Pharynx normal, TMs normal. Negative: Nasal congestion, Trismus, Muffled voice, Hoarse voice Neck: Positive: Supple, No Lymphadenopathy, Tenderness @ Respiratory/Lung Sounds: Positive: Clear to Auscultation, Breath Sounds Present Cardiovascular: Positive: Normal, RRR, Pulses are Symmetrical in both Upper and Lower Extremities Abdomen Description: Positive: Distended. Negative: CVA Tenderness (R), CVA Tenderness (L) Bowel Sounds: Positive: Present Musculoskeletal: Positive: Normal, Strength/ROM Intact, Edema Left, Edema Right Neurological: Positive: Normal, Sensory/Motor Intact, Alert, Oriented to Person Place, Time Psychiatric: Positive: Normal AVPU Assessment: Alert - Radha Coma Scale Best Eye Response: 4 - Spontaneous Best Motor Response: 6 - Obeys Commands Best Verbal Response: 5 - Oriented Coma Scale Total: 15 Diagnostics - Vital Signs Vital Signs Temp Pulse Resp BP Pulse Ox 10/18/17 22:25 98 F 74 18 199/92 96 - Laboratory Result Diagrams: 10/18/17 23:27 10/18/17 23:27 Lab Statement: Any lab studies that have been ordered have been reviewed, and results considered in the medical decision making process. - EKG No standard instances Cardiac Rate: NL EKG Rhythm: Sinus Rhythm ST Segment: Normal Ectopy: None EKG Interpretation: SR with [facility] EKG Comparison: No Significant Change Re-Evaluation - Re-Evaluation First Eval Change: Improved - patient appears more comfortable---reviewed case with Dr. Burnette-will give po valium and IV Toradol Second Eval Change: Improved - resting comfortably, Disposition - Course Assessment/Plan: report to Dr. Burnette - Diagnoses Provider Diagnoses: Neck pain without injury Discharge - Sign-Out/Discharge Documenting (check all that apply): Sign-Out Patient Signing out patient TO: Frank Burnette Receiving patient FROM: Saige Luna - Discharge Plan Condition: Fair Referrals: No Primary Care Phys,NOPCP [Primary Care Provider] - - Billing Disposition and Condition Condition: FAIR
[2017-10-18] MEDS ORDERED: Morphine VIAL* 4 MG/ML VIAL (1 ml vial) IV ONE (23:22)
[2017-10-18 23:39] LABS: ABS Basophils 0.2 10^3/ul (0-0.2); ABS Eosinophils 0.3 10^3/ul (0-0.6); ABS Lymphocytes 1.9 10^3/ul (1.0-4.8); ABS Monocytes 1.4 10^3/ul (0-0.8); ABS Neutrophils 8.3 10^3/ul (1.5-7.7); ABS Nucleated RBC 0 10^3/ul; Eosinophil % 2.6 % (0-6); Hematocrit 43 % (42-52); Hemoglobin 14.6 g/dl (14.0-18.0); Lymphocyte % 15.7 % (25-47); Mean Corpuscular HGB Conc 34 g/dl (31-36); Mean Corpuscular Hemoglobin 29 pg (27-31); Mean Corpuscular Volume 87 fL (80-94); Mean Platelet Volume 7.2 um3 (7.4-10.4); Nucleated Red Blood Cells % 0.1; Platelet Count 240 10^3/ul (150-450); Red Blood Count 5.01 10^6/ul (4.00-5.40); Red Cell Distribution Width 18 % (10.5-15)
[2017-10-19] MEDS ORDERED: Morphine VIAL* 4 MG/ML VIAL (1 ml vial) IV ONE (00:18)
[2017-10-19] MEDS ORDERED: Ketorolac INJ* 30 MG/ML 1 ML VIAL IV PUSH ONE (00:49)
[2017-10-19] MEDS ORDERED: Diazepam TAB(*) 5 MG PO ONE (00:49)
[2017-10-19] MEDS ORDERED: Labetalol IV* 5 MG/ML 20 ML VIAL IV PUSH ONE (03:40)
[2017-10-19] MEDS ORDERED: Diazepam SYRINGE* 5 MG/ML 2 ML SYRINGE (10 MG total) IV ONE (03:40)
--- NOTE | 2017-10-19 03:51 | ED ---
Progress - Progress Note Progress Note: This patient was signed out from Dr. Luna to Dr. Burnette, awaiting C-spine CT. C-spine CT reveals the patient is status post C5-6 anterior/interbody fusion. Surgical hardware seems to be in satisfactory position. The cervical vertebrae are normally aligned. No fracture of destructive bone lesion. No major stenosis of the cervical bony canal. At C3-4 there is mild right foraminal narrowing from right facet hypertrophy. At C4-5 there is moderate right foraminal narrowing from facet hypertrophy. At C5-6 there is slight bilateral foraminal narrowing due to uncovertebral hypertrophy. Upon 1st re-eval at 033, the patient reports he has neck pain with movement and C-spine tenderness. Upon 2nd re-eval at 424, the patient feels better after given valium. The patient will be discharged home with rx percocet, valium, and decadron and instructions to follow up with Dr. Roque (neurosurgery). Dx is C-spine degenerative disease and Cervical radiculopathy. Re-Evaluation - Re-Evaluation First Eval Change: Improved - patient appears more comfortable---reviewed case with Dr. Burnette-will give po valium and IV Toradol Second Eval Change: Improved - resting comfortably, Course/Dx - Diagnoses Provider Diagnoses: Degenerative joint disease of cervical spine, Cervical radiculopathy Discharge - Sign-Out/Discharge Documenting (check all that apply): Patient Departure - Discharge Plan Condition: Stable Disposition: HOME Patient Education Materials: Cervical Radiculopathy (ED) Referrals: No Primary Care Phys,NOPCP [Primary Care Provider] - (Follow up with your primary care physician in 1-2 days.) Additional Instructions: Percocet 5/325 1 tab every 6 hours as needed for pain, quantity 144, max daily dose 4 Flexeril 10mg 1 PO TID as needed for pain, quantity 20tabs Decadron 4mg, 1 BID, quantity 10 tabs RETURN TO THE EMERGENCY DEPARTMENT FOR CHANGING OR WORSENING SYMPTOMS.
[2017-10-19] MEDS ORDERED: Diazepam INJ (NF) 5 MG/ML 10 ML VIAL (50 MG TOTAL) IV ONE (04:00)
[2017-10-19] MEDS ORDERED: Dexamethasone IV* 4 MG/ML 1 ML (4 MG) IV SLOW PU ONE (04:32)
[2017-10-19 05:42] VITALS: BP 172/85
--- NOTE | 2017-10-19 07:41 | RAD ---
INDICATION: Shortness of breath. COMPARISON: Comparison is made with a prior study from September 01, 2017. TECHNIQUE: 2 portable films of the chest were obtained. FINDINGS: Cardiac and mediastinal contours appear to be within normal limits. The lungs are hyperinflated and clear. No pleural effusion is seen. Postsurgical changes are noted in the lower cervical spine. IMPRESSION: FINDINGS SUGGESTIVE OF COPD, NO EVIDENCE FOR ACUTE FINDING. R1
--- NOTE | 2017-10-19 07:49 | RAD ---
HISTORY: Neck pain COMPARISONS: None VIEWS: 6, Frontal, lateral, swimmer's, open-mouth odontoid, and bilateral oblique views of the cervical spine. FINDINGS: The cervical spine is visualized from the skull base through T1. ALIGNMENT: There is straightening of the normal cervical lordosis. VERTEBRAL BODIES: The patient is status post anterior cervical fusion at C5-C6. There is no appreciable hardware failure or osteolysis. JOINTS: There is diffuse uncovertebral and facet hypertrophy. There is moderate left-sided neural foraminal narrowing at C5-C6 and C6-C7. INTERVERTEBRAL DISCS: There is diffuse loss of intervertebral disc height. SOFT TISSUE: Evaluation of the prevertebral soft tissues are quite technique and body habitus. OTHER: The skull base is normal. The lung apices are clear. IMPRESSION: 1. DEGENERATIVE DISC DISEASE AND OSTEOARTHRITIS. 2. STATUS POST ANTERIOR CERVICAL FUSION.
--- NOTE | 2017-10-19 08:03 | RAD ---
INDICATION: Cervicalgia. COMPARISON: Comparison is made with a prior x-ray study of the cervical spine from October 19, 2017. TECHNIQUE: Contiguous axial sections were obtained from the skull base through the T1 vertebra. Images were reconstructed in the sagittal and coronal planes. FINDINGS: There is straightening of the cervical spine with loss of the normal cervical lordosis. No prevertebral soft tissue swelling or fracture is seen. The patient is status post anterior spinal fusion at the C5-C6 level. There is a metallic plate present anterior to those vertebra transfixed with 2 surgical screws at each level. There is a osseous strut graft within the disc space and osseous fusion of the vertebral bodies. The metallic hardware appears intact. At the C2-C3 level there is mild posterior uncinate process spurring. No significant spinal canal narrowing is present. There is mild neural foraminal narrowing on the right side. At the C3-C4 level there is mild posterior uncinate process spurring. No significant spinal canal narrowing is present. There is mild to moderate neural foraminal narrowing on the right side. At the C4-C5 level there is posterior uncinate process spurring and mild hypertrophic changes within the facet joints. No significant spinal canal narrowing seen. There is moderate bilateral neural foraminal narrowing. At the C5-C6 level there is mild posterior uncinate process spurring. No significant spinal canal narrowing is present. There is moderate bilateral neural foraminal narrowing. At the C6-C7 level there is mild posterior uncinate process spurring. No significant spinal canal or neural foraminal narrowing is seen. The lung apices appear clear. IMPRESSION: 1. STRAIGHTENING OF THE CERVICAL SPINE, NO EVIDENCE FOR FRACTURE OR SUBLUXATION. 2. STATUS POST ANTERIOR SPINAL FUSION AT THE C5-C6 LEVEL. THERE IS OSSEOUS FUSION OF THE VERTEBRAL BODIES. 3. MILD TO MODERATE CERVICAL SPONDYLOSIS.
== END 2017-10-19 05:10 | disposition home or self-care (01) ==
LOC: ED 22:24
DX: M54.2 Cervicalgia (principal); R06.02 Shortness of breath; R60.0 Localized edema; M47.812 Spondylosis without myelopathy or radiculopathy, cervical region; E11.9 Type 2 diabetes mellitus without complications; E07.9 Disorder of thyroid, unspecified; E24.9 Cushing's syndrome, unspecified; I11.0 Hypertensive heart disease with heart failure; J44.9 Chronic obstructive pulmonary disease, unspecified; N17.9 Acute kidney failure, unspecified; M79.7 Fibromyalgia; G31.83 Neurocognitive disorder with Lewy bodies; F02.80 Dementia in other diseases classified elsewhere, unspecified severity, without behavioral disturbance, psychotic disturbance, mood disturbance, and anxiety; Z98.1 Arthrodesis status; Z88.0 Allergy status to penicillin; F17.200 Nicotine dependence, unspecified, uncomplicated
CPT/HCPCS: 36415; 71045; 72050; 72125; 80053; 83605; 83880; 84484; 85025; 85379; 85652; 86140; 93005; 96374; 96375; 96376; 99284; A9270-GY; J1885; J2270; J3360

== ENCOUNTER 2017-11-21 17:10 | Emergency (ER) | payer MEDICARE, OTHER ==
--- OUTSIDE RECORDS SUMMARY | 2017-11-21 17:33 | XMS REPORT | Continuity of Care Document ---
:1955 Author Organization [facility] Care Team Providers Name Role Phone AISHA MORENO Admitting Physician AISHA MORENO Attending Physician REBECCA ALICIA Primary Care Physician Allergies and Intolerances Code Code Allergy Type Reaction Severity Start End Status System Substance Date Date 7986 RXNorm Penicillins Propensity to HIVES/Rash Moderate Active adverse 958 reactions to drug (disorder) 510749 RXNorm Lipitor Propensity to nausea Unknown Active adverse 015 reactions to drug (disorder) 1191 RXNorm Aspirin Drug allergy Unknown 02/10/ (disorder) 2012 Medications RxNorm Medication Dose Route Instructions Start End Status Date Date 9002895 0.9 ML tocilizumab 162 mg Subcutaneous subcutaneously Active 180 MG/ML Prefilled every 2 weeks Syringe 2875056 24 HR Divalproex 500 mg oral orally every day Active Sodium 500 MG at bedtime Extended Release Oral Tablet Acetaminophen 1000 mg oral orally every 6 Active hours as needed. 1683479 Acetaminophen 325 1 tab oral orally every 6 05/16/19 Active MG / Oxycodone hours 18 Hydrochloride 10 MG Oral Tablet Albuterol HFA 2 puff Inhalation inhaled every 6 Active Inhaler 90 hours as needed. mcg/actuation 1191 Aspirin 81 mg oral orally every Active morning 019058 Bumetanide 2 MG 2 mg oral orally every day Active Oral Tablet 849098 Diclofenac Sodium 4 g Topical topically 4 times Active 0.01 MG/MG Topical per day (apply to Gel single knee, ankle, foot; gently massage into area; for lower back pain) Diltiazem Oral 24 240 mg oral orally every day Active hr Cap 444706 Donepezil 10 mg oral orally every Active hydrochloride 10 MG morning Oral Tablet 461108 Furosemide 20 MG 20 mg oral orally 2 times Active Oral Tablet per day 55673 gabapentin 700 mg oral orally 2 times Active per day 4850 Glucose 4 g oral orally once as Active needed. 510934 Insulin Glargine 28 unit Subcutaneous subcutaneously Active 100 UNT/ML every day at Injectable Solution bedtime Isosorbide 60 mg oral orally every Active Mononitrate Oral 24 morning hr Tab Levothyroxine Oral 25 mcg oral orally every Active morning 19771111 Lisinopril 40 MG 40 mg oral orally every day Active Oral Tablet 19900910 Melatonin 3 MG Oral 3 mg oral orally every day Active Tablet at bedtime 87932 meloxicam 7.5 mg oral orally every day Active 931324 Memantine 10 mg oral orally 2 times Active hydrochloride 10 MG per day Oral Tablet 858905 Metoprolol Tartrate 25 mg oral orally 2 times Active 25 MG Oral Tablet per day 4917 Nitroglycerin 0.4 mg Sublingual sublingually Active every 5 minutes as needed. (until response; do not exceed 3 doses per event) 835561 pantoprazole 40 MG 40 mg oral orally every Active Delayed Release morning Oral Tablet 8591 Potassium Chloride 10 mEq oral orally 2 times Active per day 8640 Prednisone 50 mg oral orally every day Active (5 days) 8640 Prednisone 40 mg oral orally every day Active (administer with food or milk) 040194 Regular Insulin, 00 unit Subcutaneous subcutaneously 3 Active Human times per day (sliding scale) 672350 Rosuvastatin 40 mg oral orally every day Active calcium 40 MG Oral at bedtime Tablet 786732 Sulfamethoxazole 1 tab oral orally 3 times Active 800 MG / per week Trimethoprim 160 MG Oral Tablet Problems Code Code System Problem Name Start Date End Date Status 40229703291247155 SNOMED-CT Intractable low back pain 05/14/2017 Active 468714743 SNOMED-CT Placement of stent 09/2014 Active 865418656 SNOMED-CT Hypomagnesemia 01/29/2014 U Active 65667360 SNOMED-CT Chest pain 01/29/2014 U Active 072052148 SNOMED-CT Atypical chest pain 01/29/2014 U Active 207318846 SNOMED-CT Body mass index 30+ - 01/02/2014 U Completed obesity 78998312 SNOMED-CT Hypokalemia 06/23/2013 U Active 222964802 SNOMED-CT Hypomagnesemia 06/23/2013 U Active 403861607 SNOMED-CT Progressive Angina 06/23/2013 U Active 012877492 SNOMED-CT Leukocytosis 06/23/2013 U Active 543529341 SNOMED-CT Body mass index 30+ - 06/23/2013 U Active obesity 516335870 SNOMED-CT Abdominal pain - cause 03/13/2013 U Active unknown 07729269 SNOMED-CT Chest pain 02/11/2013 U Active Abnormal stress 2012 U Active echocardiogram Cardiac catheterization 2012 U Active 679745759 SNOMED-CT Colonoscopy abnormal 2012 U Active 633174353 SNOMED-CT Tubular adenoma of colon 2012 U Active 4679825 SNOMED-CT Prostatitis 2011 U Active 33693025 SNOMED-CT Cystitis 2011 U Active 46967892 SNOMED-CT Nicotine dependence 1983 U Active 75766728 SNOMED-CT Acute pyelonephritis 1979 U Active 45506851 SNOMED-CT Nicotine dependence 1977 U Active 58826919 SNOMED-CT Mood disorder U Active 75989251 SNOMED-CT Dementia U Active 27923723 SNOMED-CT Hyperlipidemia U Active 75351819 SNOMED-CT Cystitis U Active 838290896 SNOMED-CT Gastroesophageal reflux U Active disease 770211311 SNOMED-CT Disorder characterized by U Active back pain 82631955 SNOMED-CT Hyperlipidemia U U Active 76747283 SNOMED-CT Hypertensive disorder U U Active 8088973 SNOMED-CT Primary degenerative U U Active dementia of the Alzheimer type, presenile onset, uncomplicated 021890326 SNOMED-CT Senile dementia of the U U Active Lewy body type Disk fusion in the back U U Active Laparoscopy lysis of U U Active adhesions 893207503 SNOMED-CT Chronic low back pain U U Active Spinal fusion U U Active 25496984 SNOMED-CT Hypertensive disorder U Active 72798627 SNOMED-CT Hypercholesterolemia U Active 37177765 SNOMED-CT Hearing loss U Active 028395111 SNOMED-CT Bone cyst U Active 547278834373025 SNOMED-CT History of giant cell U Active arteritis Procedures Code Code System Procedure Date 26232836 SNOMED CT Appendectomy [address] Cholecystectomy 2003 NECK SURGERY U BACK SURGERY L4,L5 1996 TUBES IN EARS [address] Cholecystectomy U 87679159 SNOMED CT Appendectomy U 41069468 SNOMED CT Coronary angiography 1995 Results Laboratory Results Order: CBC DIFF Specimen Source: Body Site : Legend: (G,H)=High, (GG,HH,CH,#H)=Above High Threshold, (#,L)=Low, (##,CL,#L, LL)=Below Low Threshold, (C,CC,CA,#A,A)=Abnormal LOINC Test Result Flag Range Units Date 6690-2 1WBC # Bld Auto 11.4 H 4.8-10.8 K/uL 10/04/2017 06:45 93687-1 1RBC # Bld 4.63 4.60-6.20 M/uL 10/04/2017 06:45 718-7 1Hgb Bld-mCnc 13.9 13.5-18.0 gm/dL 10/04/2017 06:45 4544-3 1Hct VFr Bld Auto 41.4 41.0-53.0 % 10/04/2017 06:45 787-2 1MCV RBC Auto 89.4 80.0-100.0 fL 10/04/2017 06:45 22792-4 1MCHC RBC-mCnc 33.7 30.0-36.5 % 10/04/2017 06:45 94793-2 1MCH RBC Qn 30.1 27.0-34.0 pg 10/04/2017 06:45 86747-5 1RDW RBC 15.6 H 11.0-15.0 % 10/04/2017 06:45 777-3 1Platelet # Bld Auto 242 130-450 K/uL 10/04/2017 06:45 43786-9 1PMV Bld Auto 6.7 6.0-12.0 fL 10/04/2017 06:45 751-8 1Neutrophils # Bld Auto 69 37-80 % 10/04/2017 06:45 76499-9 1Lymphocytes NFr Bld 16 10-50 % 10/04/2017 06:45 5905-5 1Monocytes NFr Bld Auto 14 H 0-12 % 10/04/2017 06:45 99199-5 1Eosinophil # Bld 1 <=8 % 10/04/2017 06:45 704-7 1Basophils # Bld Auto 1 <=3 % 10/04/2017 06:45 33101-4 1Neutrophils # Bld 7.8 1.8-8.6 K/uL 10/04/2017 06:45 731-0 1Lymphocytes # Bld Auto 1.8 0.5-5.0 K/uL 10/04/2017 06:45 742-7 1Monocytes # Bld Auto 1.6 H 0.0-1.3 K/uL 10/04/2017 06:45 32995-1 1Eosinophil # Bld 0.1 0.0-0.9 K/uL 10/04/2017 06:45 704-7 1Basophils # Bld Auto 0.1 0.0-0.3 K/ul 10/04/2017 06:45 Performing Lab Footnotes:[facility] - [id number] - [address] [place] [address] ONESIMO Nuno [id number] Order: COMPREHENSIVE PANEL Specimen Source: Body Site: Legend: (G,H)= High, (GG,HH,CH,#H)=Above High Threshold, (#,L)=Low, (##,CL,#L,LL)=Below Low Threshold, (C,CC,CA,#A,A)=Abnormal LOINC Test Result Flag Range Units Date 2951-2 1Sodium SerPl-sCnc 141 136-145 mmol/L 10/04/2017 06:45 2823-3 1Potassium SerPl-sCnc 3.6 3.5-5.2 mmol/L 10/04/2017 06:45 5-0 1Chloride SerPl-sCnc 108 100-108 mmol/L 10/04/2017 06:45 8-9 1CO2 SerPl-sCnc 22 21-32 mmol/L 10/04/2017 06:45 2345-7 1Glucose SerPl-mCnc 150 H 70-100 mg/dL 10/04/2017 06:45 3094-0 1BUN SerPl-mCnc 7 7-21 mg/dL 10/04/2017 06:45 2160-0 1Creat SerPl-mCnc 1.3 0.6-1.3 mg/dL 10/04/2017 06:45 Interpretive Tracie: 1Normal Kidney Function or Mild Disease - GFR >OR=60 Chronic Kidney Disease - GFR 15-59 Renal Failure - GFR < 15 GFR not calculated on patients under 18 years of age. Calculated (estimated) GFR is based on the MDRD Study equation, which assumes a steady state for creatinine. Estimated GFR may not be appropriate for medication dosing. 34533-2 1Ca-I SerPl-mCnc 8.9 8.5-10.8 mg/dL 10/04/2017 06:45 56354-0 1GFR/BSA.pred SerPl-ArVRat 59 10/04/2017 06:45 78289-9 1Bilirub Bld-mCnc 0.2 0.0-1.2 mg/dL 10/04/2017 06:45 2885-2 1Prot SerPl-mCnc 5.7 L 6.4-8.2 gm/dL 10/04/2017 06:45 1751-7 1Albumin SerPl-mCnc 3.7 3.4-4.8 gm/dL 10/04/2017 06:45 6768-6 1ALP SerPl-cCnc 75 40-150 U/L 10/04/2017 06:45 1742-6 1ALT SerPl-cCnc 79 H 0-55 U/L 10/04/2017 06:45 1920-8 1AST SerPl-cCnc 28 5-37 U/L 10/04/2017 06:45 Performing Lab Footnotes:[facility] - [id number] - [address] [place] [address] ONESIMO HEALY Radiology Results Order: CT-LUMBAR SPINE W/O CONTRASTExam Completion Date:10/04/2017 08:5810/04/2017 10:[address] LUMBOSACRAL SPINE WITHOUT CONTRAST ORDERING CLINICAL INFORMATION: LOW BACK PAIN,Severe back pain. Concerned for cauda equine. Unable to have MRI -- LOW BACK PAIN ADDITIONAL CLINICAL INFORMATION: None. TECHNIQUE: CT of the lumbosacral spine was performed without intravenous contrast. Sagittal, axial and coronal reformations were acquired. Automated exposure control, adjustment of the mA and/or kV according to patient size, and/or iterative reconstruction techniques were utilized for radiation dose optimization. COMPARISON: Plain radiographs of the lumbosacral spine from 05/15/2017. FINDINGS: Five lumbar vertebral segments are demonstrated. There is mild straightening of the lumbar lordosis. Sequelae of prior anterior discectomy and fusion are notedat L4-5, with an annular intercalated metallic fixation ring inserted in good position. There is satisfactory central bony ankylosis at L4- 5. The remaining disc spaces are preserved except for loss of disc height at T11 -12 accompanied by anterior posterior spondylosis. Mild anterior spondylotic changes are also noted at several other lumbar levels, including T12-L1, L1-2 and L2-3. The vertebral bodies are normal in height. The vertebrae are normal in alignment. There are bulging annuli and/or protruding disks at L2-3, L3-4 and L5-S1, with details below. Individual levels: T12-L1: No disc herniation, spinal stenosis or foraminal narrowing. L1-L2: No disc herniation, spinal stenosis orforaminal narrowing. L2-L3: A mild circumferentially bulging annulus is noted with slight flattening of the anterior thecal sac. There is a superimposed right paracentral disc protrusion with apparent posterior displacement of the transiting L3 nerve root on the right. L3-L4: There is a minimal circumferentially bulging annulus with slight flattening of the anterior thecal sac. There is no superimposed disc herniation, spinal stenosis or foraminal narrowing. L4-L5: Status post ALDF procedure with resulting ankylosis of the disc space. L5-S1: A small central disc protrusion is notedin the midline, extending into the epidural fat without nerve root impingement. OTHER: None. IMPRESSION: Status post anterior lumbar discectomy and fusion procedure at L4-5 with satisfactory ankylosis. Small central disc protrusion noted at L5-S1 extending mostly into the epidural fat.There are bulging annuli at L2-3 and L3-4 with flattening of the anterior thecal sac. An apparentsuperimposed right paracentral disc protrusion with at L2-3, with apparent impingement and posterior displacement of the transiting right L3 nerve root is suggested. Alternatively, there may be a medially protruding synovial cyst arising from the right L2-3 articular facet joint. END REPORT Electronically signed By: Kimberly Crooks M.D. Read By: KIMBERLY CROOKS Date: 10/04/2017 10:28 Social History Code Code System Social History Description Dates Observed Observation 647735686287741 SNOMED CT Current Smoking Current some day Status smoker UNK AdministrativeGender Sex Assigned At Unknown Vital Signs Code Code System Vitals Value Date 8865-8 LOINC Pulse Rate 77 {beats}/min 10/04/2017 9279-1 LOINC Respiratory Rate 18 /min 10/04/2017 34116-5 LOINC O2% BldC Oximetry 97 % 10/04/2017 3150-0 LOINC Inhaled Oxygen Concentration 4 liters per minute 10/04/2017 8480-6 LOINC BP Systolic 160 mm[Hg] 10/04/2017 8462-4 LOINC BP Diastolic 76 mm[Hg] 10/04/2017 8310-5 LOINC Body Temperature 97.8 [degF] 10/04/2017 8302-2 LOINC Height 65 [in_i] 10/04/2017 54801-4 LOINC Weight 104.33 kg 10/04/2017 3140-1 LOINC Body surface area Derived from 2.1 m2 10/04/2017 formula 67525-5 LOINC BMI (Body Mass Index) 38.3 kg/m2 10/04/2017 Goals Section Goals Description Notes Status Start Date End Date Control pain and breathing Active Health Concerns No data in the systemEncounter Diagnosis Date Code Code System Diagnosis Status M51.27 ICD10 OTH IV DISC DISPLACEMENT LS REGION Active Advance Directives HEALTH CARE 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 Supporting Document Name Address Phone No Directive 11/20/2016 Not Specified Not Specified Not Specified rupa No Type specified 7:00:00 AM ella [phone] Family History Relationship: Father () Health Problem Age At Onset Notes GA (Myocardial infarction) 45 Years Relationship: Mother ( ) Health Problem Age At Onset Notes Colon CA (Carcinoma of colon) 74 Years Relationship: Brother ( ) Health Problem Age At Onset Notes Hyperlipemia (Hyperlipidemia) 30 Years Leesa Gehrig's disease (Amyotrophic lateral sclerosis) 47 Years GA (Myocardial infarction) 37 Years Relationship: Sister Health Problem Age At Onset Notes CVA (Cerebrovascular accident) 50 Years Functional Status Code Functional Condition Code System Date Status Obese SNOMED CT 10/04/2017 Active Appears well nourished/hydrated SNOMED CT 10/04/[address] 10/04/2017 Active Independent adls SNOMED CT 10/04/2017 Active Immunizations Vaccine Code Code System Vaccine Name Date Status LAST TETANUS 2007 Completed 141 CVX Influenza, seasonal, 01/08/2014 Completed injectable PNEUMOCOCCAL 23-VALPS 05/20/2016 Not given (patient VACCINE objection) 140 CVX Influenza, seasonal, 02/21/2017 Completed injectable, preservative free Medical Equipment No data in the system Mental Status Code Cognitive Condition Code System Date Status Other SNOMED CT 10/04/2017 Active Oriented x [address] 10/04/2017 Active Moves all extremities SNOMED CT 10/04/2017 Active Mild distress SNOMED CT 10/04/[address] 10/04/2017 Active Assessment and Plan Assessments No data in the systemPlan Of Treatment No data in the systemPending Tests Test Start Date MRI LUMBAR W/O CONTRAST 10/04/2017 Hospital Discharge Instructions No data in the system Reason for Visit Reason for Visit Back Pain (Low)
[2017-11-21] MEDS ORDERED: Diazepam TAB(*) 5 MG PO ONE (18:32)
[2017-11-21] MEDS ORDERED: Ketorolac INJ* 60 MG/2 ML VIAL IM ONE (18:33)
[2017-11-21] MEDS ORDERED: predniSONE TAB* 20 MG PO ONE (20:29)
--- NOTE | 2017-11-21 20:51 | ED ---
Back Pain - HPI Summary HPI Summary: Patient with history of chronic left low back pain complains of increase in lower left back pain that radiates down posterior left upper leg 2 days. States he can't walk due to pain. Patient at baseline walks with cane or walker. Denies trauma, numbness or tingling, urinary retention, incontinence, fever, cough, sore throat, CP, SOB, N/V/D, abdominal pain, change in urine or BM. Medical history is DM, COPD, ER if, anasarca, HTN, hypothyroid, degenerative disc disease of C-spine and L-spine, diabetic neuropathy, chronic back pain, chronic peripheral edema. - History of Current Complaint Chief Complaint: EDBackInjuryPain Stated Complaint: PAIN Time Seen by Provider: 11/21/17 17:34 Hx Obtained From: Patient Onset/Duration: Gradual Onset, Lasting Weeks Onset/Duration: Started Days Ago Timing: Constant Severity Initially: Moderate Severity Currently: Severe Pain Intensity: 10 Pain Scale Used: 0-10 Numeric Character: Sharp, Throbbing Aggravating Symptom(s): Movement, Bending Alleviating Symptom(s): Position Associated Signs And Symptoms: Positive: Negative - Allergies/Home Medications Allergies/Adverse Reactions: Allergies Allergy/AdvReac Type Severity Reaction Status Date / Time Penicillins Allergy Hives Verified 11/21/17 17:16 PMH/Surg Hx/FS Hx/Imm Hx Endocrine/Hematology History: Reports: Hx Diabetes, Hx Thyroid Disease, Other Endocrine/Hematological Disorders - Hx arteritis, Hx Lala's Cardiovascular History: Reports: Hx Congestive Heart Failure, Hx Hypertension Respiratory History: Reports: Hx Chronic Obstructive Pulmonary Disease (COPD) History: Reports: Hx Acute Renal Failure Musculoskeletal History: Reports: Hx Back Problems, Hx Fibromyalgia Sensory History: Reports: Hx Hearing Aid - Left Denies: Hx Contacts or Glasses Opthamlomology History: Denies: Hx Contacts or Glasses Neurological History: Reports: Other Neuro Impairments/Disorders - Oscar body dementia Comment Only: Hx Dementia - Mann Body Dementia - Surgical History Surgery Procedure, Year, and Place: Appendectomy. Cervical and lumbar spinal fusions. Right lower extremity stent. Carpal tunnel. Eustachian tubes; Cholecystectomy Infectious Disease History: No Infectious Disease History: Denies: Traveled Outside the [place] in Last 30 Days - Family History Known Family History: Positive: Unknown - due to dementia - Social History Alcohol Use: None Substance Use Type: Reports: None Smoking Status (MU): Light Every Day Tobacco Smoker Review of Systems Constitutional: Negative Eyes: Negative ENT: Negative Cardiovascular: Negative Respiratory: Negative Gastrointestinal: Negative Genitourinary: Negative Musculoskeletal: Other Skin: Negative Neurological: Negative Psychological: Normal All Other Systems Reviewed And Are Negative: Yes Physical Exam - Summary Physical Exam Summary: Positive straight leg test. Pain with palpation of left lower back and the posterior thigh. PMS intact distally. Triage Information Reviewed: Yes Vital Signs On Initial Exam: Initial Vitals Temp Pulse Resp BP Pulse Ox 98.6 F 62 16 00/ 97 11/21/17 17:12 11/21/17 17:12 11/21/17 17:12 11/21/17 17:12 11/21/17 17:12 Vital Signs Reviewed: Yes Appearance: Positive: Well-Appearing Skin: Positive: Warm Head/Face: Positive: Normal Head/Face Inspection Eyes: Positive: Normal Neck: Positive: Supple Respiratory/Lung Sounds: Positive: Clear to Auscultation Cardiovascular: Positive: Normal Abdomen Description: Positive: Nontender Musculoskeletal: Positive: Normal Neurological: Positive: Normal Psychiatric: Positive: Normal AVPU Assessment: Alert - Radha Coma Scale Best Eye Response: 4 - Spontaneous Best Motor Response: 6 - Obeys Commands Best Verbal Response: 5 - Oriented Coma Scale Total: 15 Diagnostics - Vital Signs Vital Signs Temp Pulse Resp BP Pulse Ox 11/21/17 18:40 20 11/21/17 17:22 170/74 11/21/17 17:12 98.6 F 62 16 97 - Laboratory Lab Statement: Any lab studies that have been ordered have been reviewed, and results considered in the medical decision making process. Back Pain Course/Dx - Course Course Of Treatment: Patient with history of chronic left low back pain complains of increase in lower left back pain that radiates down posterior left upper leg 2 days. States he can't walk due to pain. Patient at baseline walks with cane or walker. Denies trauma, numbness or tingling, urinary retention, incontinence, fever, cough, sore throat, CP, SOB, N/V/D, abdominal pain, change in urine or BM. Medical history is DM, COPD, ER if, anasarca, HTN , hypothyroid, degenerative disc disease of C-spine and L-spine, diabetic neuropathy, chronic back pain, chronic peripheral edema. Physical exam: Positive straight leg test. Pain with palpation of left lower back and the posterior thigh. PMS intact distally. Patient's symptoms improved moderately with Toradol 60 mg IM and Valium 5 mg by mouth. Patient states he wants his primary care to write the [facility] Recommended in discharge paperwork for PCP to right Decadron 4 mg by mouth twice a day 5 days, and Valium 5 mg by mouth 3 times a day 6 tablets. Follow- up with neurosurgery. - Diagnoses Provider Diagnoses: Sciatica Discharge - Sign-Out/Discharge Documenting (check all that apply): Patient Departure - Discharge Plan Condition: Stable Disposition: HOME Patient Education Materials: Sciatica (ED) Referrals: Fabiola JONES,Garo Arroyo [Primary Care Provider] - Kye Lopez MD [Medical Doctor] - Additional Instructions: I recommend Decadron 4 mg by mouth twice a day x 5 days for #10 tabs. Also recommend Valium 5 mg by mouth twice a day x #6 tabs. Follow-up with primary care and neurosurgery Dr Lopez. Return to the ED for any new or worsening symptoms - Billing Disposition and Condition Condition: STABLE Disposition: Home
[2017-11-21 21:34] VITALS: BP 184/80
== END 2017-11-21 21:33 | disposition home or self-care (01) ==
LOC: ED 17:10
DX: M54.30 Sciatica, unspecified side (principal); M54.5 Low back pain; F17.210 Nicotine dependence, cigarettes, uncomplicated
CPT/HCPCS: 99282; A9270-GY; J1885; J7512